=== PATIENT | female | born 1990 | race Caucasian/White ===

== ENCOUNTER → 2018-03-08 11:00 | Outpatient (CLI) | payer OTHER, SELFPAY ==
[2018-03-12 13:48] LABS: HPV Reflexed? NOT INDICATED
== END ==
PROVIDERS: Referring Provider Obstetrics & Gynecology; Visit Provider Obstetrics & Gynecology
DX: Z12.4 Encounter for screening for malignant neoplasm of cervix (principal)
CPT/HCPCS: 87624; 88175; G0145

== ENCOUNTER → 2018-07-12 16:42 | Outpatient (CLI) | payer OTHER, SELFPAY ==
[2018-07-12 15:06] VITALS: BMI 23.7
== END ==
PROVIDERS: Referring Provider Obstetrics & Gynecology; Visit Provider Obstetrics & Gynecology
DX: R10.2 Pelvic and perineal pain (principal)
CPT/HCPCS: 87086; 87088

== ENCOUNTER → 2019-06-01 | Outpatient (CLI) | payer OTHER, SELFPAY ==
[2019-06-01 08:09] VITALS: BMI 23.7
[2019-06-07 13:01] LABS: HPV Reflexed? NOT INDICATED
== END | disposition home or self-care (01) ==
LOC: LABSPEC 17:11
PROVIDERS: PCP Physician Assistant; Referring Provider Obstetrics & Gynecology; Visit Provider Obstetrics & Gynecology
DX: Z12.4 Encounter for screening for malignant neoplasm of cervix (principal)
CPT/HCPCS: 88175; G0145

== ENCOUNTER → 2020-06-03 | Outpatient (CLI) | payer OTHER, SELFPAY ==
[2020-06-03 13:08] VITALS: BMI 25.8
[2020-06-07 12:23] LABS: HPV APTIMA, High Risk Negative (Negative)
== END | disposition home or self-care (01) ==
PROVIDERS: PCP Physician Assistant; Referring Provider Obstetrics & Gynecology; Visit Provider Obstetrics & Gynecology
DX: Z12.4 Encounter for screening for malignant neoplasm of cervix (principal)
CPT/HCPCS: 87624; 88175; G0145

== ENCOUNTER → 2023-07-19 | Outpatient (CLI) | payer OTHER, SELFPAY ==
[2023-07-22 09:08] LABS: HPV APTIMA, High Risk Negative (Negative)
== END | disposition home or self-care (01) ==
PROVIDERS: PCP Physician Assistant; Referring Provider Obstetrics & Gynecology; Visit Provider Obstetrics & Gynecology
DX: Z12.4 Encounter for screening for malignant neoplasm of cervix (principal)
CPT/HCPCS: 87624; 88175; G0145

== ENCOUNTER → 2024-06-09 | Outpatient (CLI) | payer OTHER, SELFPAY ==
[2024-06-09 12:22] LABS: Absolute Lymphocyte Count 1.64 X10^3/uL (0.83-4.51); Absolute Neutrophil Count 9.3 X10^3/uL (2.0-7.7); Basophil# 0.06 X10^3/uL; Basophil% 0.5 % (0-1); Eosinophil# 0.11 X10^3/uL; Eosinophils% 0.9 % (0-5); Hemoglobin 13.2 g/dL (12.0-15.0); Lymphocyte # 1.64 X10^3/ul (0.83-4.51); Lymphocyte % 13.9 % (19-41); Mean Corpuscular Hgb 28.9 pg (27.0-32.0); Mean Corpuscular Volume 87.5 fL (81-99); Mean Platelet Vol. 10.4 fl (6.2-12.0); Monocyte# 0.65 X10^3/uL; Monocyte% 5.5 % (0-10); NRBC Flagged by Analyzer 0 % (0-5); Neutrophil # 9.29 X10^3/uL (2.7-7.7); Neutrophil % 78.8 % (47-70); Platelet Count 237 K/mm3 (150-450); RBC Distribution Width CV 12.7 % (11.6-14.6); RBC Distribution Width SD 40.6 fl (35.1-43.9); Red Blood Count 4.57 M/mm3 (4.2-5.4); White Blood Count 11.8 K/mm3 (4.4-11.0)
[2024-06-09 14:50] LABS: Hepatitis B Surface Antigen Non-Reactive (Nonreactive); Hepatitis C Antibody Non-Reactive (Nonreactive); Rubella IgG Reactive (Nonreactive); Syphilis Antibodies Non-reactive
[2024-06-12 20:07] LABS: Chlamydia By Nucleic Acid AMP Negative (Negative); Gonococcus By Nucleic Acid AMP Negative (Negative)
[2024-06-13 14:45] LABS: HIV - WCH Non-Reactive (Nonreactive)
== END | disposition home or self-care (01) ==
LOC: BWCLAB 11:15
PROVIDERS: PCP Physician Assistant; Referring Provider Obstetrics & Gynecology; Visit Provider Obstetrics & Gynecology
DX: Z34.00 Encounter for supervision of normal first pregnancy, unspecified trimester (principal)
CPT/HCPCS: 36415; 85025; 86703; 86762; 86780; 86803; 86850; 86900; 86901; 87086; 87340; 87491; 87591

== ENCOUNTER → 2024-10-16 | Outpatient (CLI) | payer OTHER, SELFPAY ==
--- OUTSIDE RECORDS SUMMARY | 2024-10-16 09:44 | XMS RPT_ITS | CCD ---
Author Organization [facility] Care Team Providers Care Business Account Manager Name Role Phone BIRCHLIZSHAR J Admitting Unavailable BIRCH, SHAR J Attending Unavailable BIRCH, SHAR J Primary Care Unavailable BIRCH, SHAR J Consulting Unavailable PROVIDER, UNKNOWN Consulting Unavailable FREIDA FAN Admitting Unavailable FREIDA FAN Attending Unavailable FREIDA FAN Primary Care Unavailable BIRCHLIZSHAR J Consulting Unavailable SHAMEKA BRONSON MD Referring Unavailab le PROVIDER, UNKNOWN Consulting Unavailable Alley Navarro Unavailable Birch PA, PA Shar Primary Care Provider Birch PA, PA Shar Referring Provider Dr. Shameka Bronson Attending Provider ZOË APONTE Attending Unavailable YOLANDE PRIMARY MD FLIP Primary Care Unavailable TRICE JONES Attending Unavailable SHAMEKA BRONSON Referring Unavailabl e Birch PA, Shar Primary Care Provider Birch PA, Shar Referring Provider Dr. Nieves Tripp DO Attending Provider Dr. Nieves Tripp DO Referring Provider Dr. Shameka Bronson MD Attending Provider Monserrat Aguirre CNM Attending Provider [phone] Gabi Clifford Attending Provider Birch PA, Shar Primary Care Unavailable Birch PA, Shar Referring Unavailable Monserrat Aguirre Attending Unavailable Birch PA, Shar Primary Care Unavailable Birch PA, Shar Referring Unavailable Shameka Bronson Attending Unavailable Birch PA, Shar Primary Care Unavailable Nieves Tripp Attending Unavailabl e Birch PA, Shar Referring Unavailable Birch PA, Shar Primary Care Unavailable Eyal LUNA, Shar Referring Unavailable Monserrat Aguirre Attending Unavailable Eyal LUNA, Shar Referring Unavailable Birch JEREMY, Shar Primary Care Unavailable Priya MANAGER CREDIT, Gabi Attending Unavailable Eyal LUNA, Shar Primary Care Unavailable Birch JEREMY, Shar Referring Unavailable Priya MANAGER CREDIT, Gabi Attending Unavailable Nieves Tripp Referring UnavailNieves Blake Attending Unavailabl e Birch JEREMY, Shar Primary Care Unavailable Birch JEREMY, Shar Primary Care Provider Shar Aleman Referring Provider Monserrat Aguirre CNM Referring Provider [phone] Allergies Allergy Classification Reported Allergen(s) Allergy Type Date of Onset Reaction(s) Facility (1 source) Amoxicillin Drug Allergy [facility] Repository (3 sources) Amoxicillin Drug Allergy 07-19-2023 Other [facility] (1 source) Amoxicillin Drug Allergy 09-25-2024 [facility] Repository Medications Current Medications Medication Drug Class(es) Dates Sig (Normalized) Sig (Original) Iron (2 sources) Start: 05-16-2024 Pnv No.[id number] No.10 (Pnv Tabs 20-1) 20 mg iron- 1 mg tablet Active {tbl} PO May 16, 2024 1:00am magnesium glycinate 100 mg oral tablet (2 sources) Start: 05-16-2024 take 1 tablet by mouth once daily Magnesium Glycinate 100 mg tablet Active 100 mg PO daily May 16, 2024 1:00am Ladson (Nk) (1 source) Start: 07-19-2023 Ladson (Nk) Active July 19, 2023 12:00am Completed/Discontinued Medications Medication Drug Class(es) Dates Sig (Normalized) Sig (Original) DULoxetine 30 mg delayed release oral capsule (3 sources) Serotonin and Norepinephrine Reuptake Inhibitor Start: 08-01-2018 End: 06-01-2019 take 1 capsule by mouth once daily Duloxetine (Cymbalta) 30 mg capsule,delayed release(DR/EC) Discontinued 30 mg PO DAILY August 01, 2018 12:00am June 01, 2019 9:04am Norgestimate-Ethi nyl Estradiol (18 sources) Progestin, Estrogen Start: 07-14-2021 End: 07-16-2022 take 1 tablet by mouth once daily Norgestimate-Ethin yl Estradiol (Sprintec (28)) 0.25-35 mg-mcg tablet Discontinued 1 {tbl} PO DAILY July 14, 2021 8:54am July 16, 2022 3:00pm Only take active pills, discard placebo Start: 07-14-2021 End: 07-16-2022 take 1 tablet by mouth once daily Norgestimate-Ethinyl Estradiol (Sprintec (28)) 0.25-35 mg-mcg tablet Discontinued 1 TABLET PO DAILY July 14, 2021 8:54am July 16, 2022 3:00pm Only take active pills, discard placebo Start: 09-24-2020 End: 07-14-2021 take 1 tablet by mouth once daily Norgestimate-Ethinyl Estradiol (Sprintec (28)) 0.25-35 mg-mcg tablet Discontinued 1 {tbl} PO DAILY September 24, 2020 8:28am July 14, 2021 8:55am Only take active pills, discard placebo Start: 09-24-2020 End: 07-14-2021 take 1 tablet by mouth once daily Norgestimate-Ethinyl Estradiol (Sprintec (28)) 0.25-35 mg-mcg tablet Discontinued 1 TABLET PO DAILY September 24, 2020 8:28am July 14, 2021 8:55am Only take active pills, discard placebo Start: 01-03-2020 End: 09-24-2020 take 1 tablet by mouth once daily Norgestimate-Ethinyl Estradiol (Sprintec (28)) 0.25-35 mg-mcg tablet Discontinued 1 {tbl} PO DAILY January 03, 2020 8:48am September 24, 2020 8:28am Only take active pills, discard placebo Start: 01-03-2020 End: 09-24-2020 take 1 tablet by mouth once daily Norgestimate-Ethinyl Estradiol (Sprintec (28)) 0.25-35 mg-mcg tablet Discontinued 1 TABLET PO DAILY January 03, 2020 8:48am September 24, 2020 8:28am Only take active pills, discard placebo Start: 03-17-2019 End: 01-03-2020 take 1 tablet by mouth once daily Norgestimate-Ethinyl Estradiol (Sprintec (28)) 0.25-35 mg-mcg tablet Discontinued 1 {tbl} PO DAILY 84 March 17, 2019 5:46pm January 03, 2020 8:48am Only take active pills, discard placebo Start: 03-17-2019 End: 01-03-2020 take 1 tablet by mouth once daily Norgestimate-Ethinyl Estradiol (Sprintec (28)) 0.25-35 mg-mcg tablet Discontinued 1 TABLET PO DAILY March 17, 2019 5:46pm January 03, 2020 8:48am Only take active pills, discard placebo Start: 02-22-2019 End: 03-17-2019 Norgestimate-Ethinyl Estradi ol (Sprintec (28)) 0.25-35 mg-mcg tablet Discontinued 1 {tbl} PO DAILY February 22, 2019 4:04pm March 17, 2019 5:47pm Start: 02-22-2019 End: 03-17-2019 take 1 tablet by mouth once daily Norgestimate-Ethinyl Estradiol (Sprintec (28)) 0.25-35 mg-mcg tablet Discontinued 1 TABLET PO DAILY February 22, 2019 4:04pm March 17, 2019 5:47pm Start: 07-12-2018 End: 02-22-2019 Norgestimate-Ethinyl Estradi ol (Sprintec (28)) 0.25-35 mg-mcg tablet Discontinued 1 {tbl} PO DAILY July 12, 2018 12:00am February 22, 2019 4:04pm Start: 07-12-2018 End: 02-22-2019 take 1 tablet by mouth once daily Norgestimate-Ethinyl Estradiol (Sprintec (28)) 0.25-35 mg-mcg tablet Discontinued 1 TABLET PO DAILY July 12, 2018 12:00am February 22, 2019 4:04pm Problems Active Problems Problem Classification Problem Date Documented Date Episodic/Chronic Abdominal pain (3 sources) Chronic pelvic pain of female; Translations: [Pelvic and perineal pain] 07-16-2022 Episodic Comment on above: s/p PFPT Anxiety disorders (4 sources) Anxiety disorder; Translations: [Anxiety disorder, unspecified] Onset: 11-28-2020 11-28-2020 Chronic Genitourinary symptoms and ill-defined conditions (1 source) Unspecified symptoms and signs involving the genitourinary system; Translations: [Unspecified symptoms and signs involving the genitourinary system] Onset: 04-29-2024 Episodic Other complications of (11 sources) RhD negative; Translations: [Other specified related conditions, unspecified trimester] 08-28-2024 Episodic Comment on above: rhogam 28 wk, pp and prn bleeding rhogam 28 wk, pp and prn bleeding, Given 10/16/24 Other complications of (1 source) Other specified related conditions, second trimester; Translations: [Other specified related conditions, second trimester] Onset: 09-25-2024 Episodic Other complications of (1 source) Other specified related conditions, unspecified trimester; Translations: [Other specified related conditions, unspecified trimester] Onset: 08-03-2024 Episodic Other female genital disorders (3 sources) Pelvic congestion syndrome; Translations: [Other specified conditions associated with female genital organs and menstrual cycle] 07-16-2022 Episodic Comment on above: resolved with physic al therapy Other and delivery including normal (20 sources) Normal ; Translations: [Encounter for supervision of normal first , unspecified trimester] Onset: 06-09-2024 08-28-2024 Episodic Comment on above: , DIEGO 01/08/25, H usspencer Messina discussed NIPT & Car rier testing- Undecided, normal anatomy Residual codes; unclassified (11 sources) History of laparoscopy; Translations: [Other specified postprocedural states] 07-19-2023 Episodic Comment on above: 2017 pelvic mass exc ision at [place], transvaginal repair, enterotomy repair Residual codes; unclassified (1 source) Unspecified blood type, Rh negative; Translations: [Unspecified blood type, Rh negative] Onset: 09-25-2024 Episodic Residual codes; unclassified (1 source) Other specified postprocedural states; Translations: [Other specified postprocedural states] Onset: 09-25-2024 Episodic Residual codes; unclassified (1 source) 25 weeks gestation of ; Translations: [25 weeks gestation of ] Onset: 09-25-2024 Episodic Residual codes; unclassified (1 source) 17 weeks gestation of ; Translations: [17 weeks gestation of ] Onset: 08-03-2024 Episodic Urinary tract infections (1 source) Acute cystitis with hematuria; Translations: [Acute cystitis with hematuria] Onset: 04-29-2024 Episodic Past or Other Problems Problem Classification Problem Date Documented Da te Episodic/Chronic Residual codes; unclassified (1 source) 13 weeks gestation of ; Translations: [13 weeks gestation of ] Onset: 07-07-2024 Episodic Results Test Name Value Interpretation Reference Range Facility Laboratory - Chemistry and C hemistry - challengeOrdered By: Monserrat Aguirre on 09-25-2024 Glucose Ql (U) Negative [facility] Laboratory - UrinalysisOrder ed By: Monserrat Aguirre on 09-25-2024 Protein Ql (U) Negative [facility] Direct Service Provider Office Visit Reporton 09-25-2024 Direct Service Provider Office Visit Report [facility]'s [address], [address] [place] [address] OFFICE VISIT Date of Service: 09/25/24 MR#: [id number] Acct: [id number] Name: LEONARD MESSINA JANENE Rep #: [id number] 7 : 1990 Provider: KATHERIN Calderon ams Age/Sex: 34/F Location: [facility] [place] Status: Signed Intake Vital Signs 08/03/24 10:50 08/28/24 09:33 09/25/24 10:17 Height 5 ft 4 in 5 ft 4 in 5 ft 4 in Weight: 160 lb 8 oz 165 lb 2 oz 168 lb BMI 27.5 28.3 28.8 BP 121/77 H 106/70 121/84 H Intake Visit Reasons: 25 wk ob Chief Complaint: 25wk OB Sales Support Consultant Required: No Is patient in pain?: No Allergies amoxicillin Allergy (Mild, Verified 09/25/24 10:14) Other Medications ???Medication ???Instructions ???Recorded ???Confirmed ???Type magnesium glycinate 100 mg (as 100 mg PO QDAY 05/16/24 09/25/24 H istory glycinate) tablet vitamins no.163-iron tab PO 05/16/24 09/25/24 History bis-gly 20 mg-folate no.10 1 mg tablet (PNV Tabs 20-1) Last Menstrual Period: 04/03/24 : No Have you fallen in the past year?: No PFSH PFSH Surgical History S/P laparoscopy Social History adopted: No household members: spouse 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 status: employed current occupation: [employer] 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 exposures/hazards: No pets and animals: Yes pets and animals: dog(s) history of recent travel: Yes (- April) out of state: Yes out of country: No sexually active: Yes Smoking Status: Never smoker alcohol intake: current alcohol intake frequency: holidays/special occasions only details: not while substance use type: does not use diet: other well-balanced diet: daily or most days caffeine: Yes Type: coffee Number of servings: 1 eating out: rarely or never during the past year weight has: remained stable what type of physical activity do you participate in: none sim/latter day: Jew seatbelt use: always do you feel safe at home: Yes additional social history: Tanvir Messina Works at [employer] History 1 Elective abortions Hx Para 0 Spontaneous abortions Hx # Term Pregnancies Ectopic pregnancies Hx # Pregnancies Multiple births # of living children HPI 25 wk ob Details: LEONARD MESSINA is a 34 year old who presents for routine OB visit. OB Visit DIEGO Calculator Estimated Delivery Date Method Current WG Current Estimate 01/08/25 LMP (Certain) 25w 0d Other Estimates 01/11/25 Ultrasound #1 24w 4d Expected Delivery Route/Plan Labor Preferences- CB/BF classes: [] labor support person: [] labor intervention preferences: [] pain management options preferred: [] cut cord/dad catch: [] : [] PP control planned: [] discussed possible routes of delivery and associated risks: [] special requests: [] Specific Issue/Plans Covid status: [] Flu vaccine: [] Tdap vaccine: [] Rhogam: [] LARC form signed: [] Problem list reviewed and updated with the most current plan of care details and appropriate orders placed. Relevant counseling for the gestational age provided. Continue routine care and follow up unless otherwise noted in visit notes/problem list details Initial Weight: Not Recorded Date -???-???-???-???-?? ?-???-???-???-???-? ??-???-???- EGA Weight BP Urine Prot -???-???-???-???-?? ?-???-???-???-???-? ??-???-???- Glucose FHR FuHt Pres Dilation -???-???-???-???-?? ?-???-???-???-???-? ??-???-???- Effaced St Visit Note 06/09/24 -???-???-???-???-?? ?-???-???-???-???-? ??-???-???- 9w 4d 152 lb 8 oz 118/79 -???-???-???-???-?? ?-???-???-???-???-? ??-???-???- 180 -???-???-???-???-?? ?-???-???-???-???-? ??-???-???- JV- CRL is c onsistent with LMP. declines NIPT. first baby, has h/o rectovaginal surgery for a large cyst. see attached op note. 07/07/24 -???-???-???-???-?? ?-???-???-???-???-? ??-???-???- 13w 4d 154 lb 8 oz 133/81 Negative -???-???-???-???-?? ?-???-???-???-???-? ??-???-???- Negative 150 -???-???-???-???-?? ?-???-???-???-???-? ??-???-???- SM- no vb cr amping 08/03/24 -???-???-???-???-?? ?-???-???-???-???-? ??-???-???- 17w 3d 160 lb 8 oz 121/77 Negative -???-???-???-???-?? ?-???-???-???-???-? ??-???-???- Negative 150 -???-???-???-???-?? ?-???-???-???-???-? ??-???-???- KW- no vb/cr amping. possible flutters. US scheduled. AFP discussed and declined 08/28/24 -???-???-???-???-?? ?-???-???-???-???-? ??-???-???- 21w 0d 165 lb 2 oz 106/70 Trace -???-???-???-???-?? ?-???-???-???-???-? ??-???-???- Negative 160 -???-???-???-???-?? ?-???-???-???-???-? ??-???-???- MH-No VB. Fe eling movement. Denies concerns 09/25/24 -???-???- (more content not included)... Normal [facility] Laboratory - Chemistry and C hemistry - challengeOrdered By: Gabi Powers on 08-28-2024 Glucose Ql (U) Negative [facility] Laboratory - UrinalysisOrder ed By: Gabi Powers on 05-05-2025 Protein Ql (U) Trace [facility] Direct Service Provider Office Visit Reporton 08-28-2024 Direct Service Provider Office Visit Report [facility]'s [facility] [address] [facility], [address] [place] [address] OFFICE VISIT Date of Service: 08/28/24 MR#: [id number] Acct: [id number] Name: LEONARD MESSINA Rep #: [id number] 5 : 1990 Provider: VINCENT hurley Age/Sex: 34/F Location: [facility] [place] Status: Signed Intake Vital Signs 07/07/24 13:52 08/03/24 10:50 08/28/24 09:33 Height 5 ft 4 in 5 ft 4 in 5 ft 4 in Weight: 165 lb 2 oz BMI 28.3 BP 106/70 Intake Visit Reasons: 21wk ob Sales Support Consultant Required: No Is patient in pain?: No Allergies amoxicillin Allergy (Mild, Verified 08/28/24 09:37) Other Medications ???Medication ???Instructions ???Recorded ???Confirmed ???Type magnesium glycinate 100 mg (as 100 mg PO QDAY 05/16/24 08/28/24 H istory glycinate) tablet vitamins no.163-iron tab PO 05/16/24 08/28/24 History bis-gly 20 mg-folate no.10 1 mg tablet (PNV Tabs 20-1) Last Menstrual Period: 04/03/24 Zika: Zika virus screening: Negative : No PFSH PFSH Surgical History S/P laparoscopy Social History adopted: No household members: spouse 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 status: employed current occupation: [employer] 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 exposures/hazards: No pets and animals: Yes pets and animals: dog(s) history of recent travel: Yes (- April) out of state: Yes out of country: No sexually active: Yes Smoking Status: Never smoker alcohol intake: current alcohol intake frequency: holidays/special occasions only details: not while substance use type: does not use diet: other well-balanced diet: daily or most days caffeine: Yes Type: coffee Number of servings: 1 eating out: rarely or never during the past year weight has: remained stable what type of physical activity do you participate in: none sim/latter day: Jew seatbelt use: always do you feel safe at home: Yes additional social history: Tanvir Messina Works at [employer] History 1 Elective abortions Hx Para 0 Spontaneous abortions Hx # Term Pregnancies Ectopic pregnancies Hx # Pregnancies Multiple births # of living children HPI 21wk ob Details: LEONARD MESSINA is a 34 year old who presents for routine OB visit. OB Visit DIEGO Calculator Estimated Delivery Date Method Current WG Current Estimate 01/08/25 LMP (Certain) 21w 0d Other Estimates 01/11/25 Ultrasound #1 20w 4d Expected Delivery Route/Plan Labor Preferences- CB/BF classes: [] labor support person: [] labor intervention preferences: [] pain management options preferred: [] cut cord/dad catch: [] : [] PP control planned: [] discussed possible routes of delivery and associated risks: [] special requests: [] Specific Issue/Plans Covid status: [] Flu vaccine: [] Tdap vaccine: [] Rhogam: [] LARC form signed: [] Problem list reviewed and updated with the most current plan of care details and appropriate orders placed. Relevant counseling for the gestational age provided. Continue routine care and follow up unless otherwise noted in visit notes/problem list details Initial Weight: Not Recorded Date -???-???-???-???-?? ?-???-???-???-???-? ??-???-???- EGA Weight BP Urine Prot -???-???-???-???-?? ?-???-???-???-???-? ??-???-???- Glucose FHR FuHt Pres Dilation -???-???-???-???-?? ?-???-???-???-???-? ??-???-???- Effaced St Visit Note 06/09/24 -???-???-???-???-?? ?-???-???-???-???-? ??-???-???- 9w 4d 152 lb 8 oz 118/79 -???-???-???-???-?? ?-???-???-???-???-? ??-???-???- 180 -???-???-???-???-?? ?-???-???-???-???-? ??-???-???- JV- CRL is c onsistent with LMP. declines NIPT. first baby, has h/o rectovaginal surgery for a large cyst. see attached op note. 07/07/24 -???-???-???-???-?? ?-???-???-???-???-? ??-???-???- 13w 4d 154 lb 8 oz 133/81 Negative -???-???-???-???-?? ?-???-???-???-???-? ??-???-???- Negative 150 -???-???-???-???-?? ?-???-???-???-???-? ??-???-???- SM- no vb cr amping 08/03/24 -???-???-???-???-?? ?-???-???-???-???-? ??-???-???- 17w 3d 160 lb 8 oz 121/77 Negative -???-???-???-???-?? ?-???-???-???-???-? ??-???-???- Negative 150 -???-???-???-???-?? ?-???-???-???-???-? ??-???-???- KW- no vb/cr amping. possible flutters. US scheduled. AFP discussed and declined 08/28/24 -???-???-???-???-?? ?-???-???-???-???-? ??-???-???- 21w 0d 165 lb 2 oz 106/70 Trace -???-???-???-???-?? ?-???-???-???-???-? ??-???-???- Negative 160 -???-???-???-???-?? ?-???-???-???-???-? ??-???-???- MH-No VB. Fe eling movement. Denies concerns ACOG First Trimester First Trimester: Discussed ROS Cons (more content not included)... Normal [facility] Laboratory - Chemistry and C hemistry - challengeOrdered By: Monserrat Aguirre on 08-03-2024 Glucose Ql (U) Negative [facility] Laboratory - UrinalysisOrder ed By: Monserrat Aguirre on 08-03-2024 Protein Ql (U) Negative [facility] Direct Service Provider Office Visit Reporton 08-03-2024 Direct Service Provider Office Visit Report [facility] [address], [address] [place] [address] OFFICE VISIT Date of Service: 08/03/24 MR#: [id number] Acct: [id number] Name: LEONARD MESSINA JANENE Rep #: [id number] 1 : 1990 Provider: KATHERIN Calderon ams Age/Sex: 34/F Location: [facility] [place] Status: Signed Intake Vital Signs 06/09/24 10:36 07/07/24 13:52 08/03/24 10:50 Height 5 ft 4 in 5 ft 4 in 5 ft 4 in Weight: 160 lb 8 oz BMI 27.5 BP 121/77 H Intake Visit Reasons: 17 wk ob Chief Complaint: 17wk OB Sales Support Consultant Required: No Is patient in pain?: No Allergies amoxicillin Allergy (Mild, Verified 08/03/24 10:49) Other Medications ???Medication ???Instructions ???Recorded ???Confirmed ???Type magnesium glycinate 100 mg (as 100 mg PO QDAY 05/16/24 08/03/24 H istory glycinate) tablet vitamins no.163-iron tab PO 05/16/24 08/03/24 History bis-gly 20 mg-folate no.10 1 mg tablet (PNV Tabs 20-1) Last Menstrual Period: 04/03/24 : No PFSH PFSH Surgical History S/P laparoscopy Social History adopted: No household members: spouse 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 status: employed current occupation: [employer] 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 exposures/hazards: No pets and animals: Yes pets and animals: dog(s) history of recent travel: Yes (- April) out of state: Yes out of country: No sexually active: Yes Smoking Status: Never smoker alcohol intake: current alcohol intake frequency: holidays/special occasions only details: not while substance use type: does not use diet: other well-balanced diet: daily or most days caffeine: Yes Type: coffee Number of servings: 1 eating out: rarely or never during the past year weight has: remained stable what type of physical activity do you participate in: none sim/latter day: Jew seatbelt use: always do you feel safe at home: Yes additional social history: Tanvir Messina Works at [employer] History 1 Elective abortions Hx Para 0 Spontaneous abortions Hx # Term Pregnancies Ectopic pregnancies Hx # Pregnancies Multiple births # of living children HPI 17 wk ob Details: LEONARD MESSINA is a 34 year old who presents for routine OB visit. OB Visit DIEGO Calculator Estimated Delivery Date Method Current WG Current Estimate 01/08/25 LMP (Certain) 17w 3d Other Estimates 01/11/25 Ultrasound #1 17w 0d Expected Delivery Route/Plan Labor Preferences- CB/BF classes: [] labor support person: [] labor intervention preferences: [] pain management options preferred: [] cut cord/dad catch: [] : [] PP control planned: [] discussed possible routes of delivery and associated risks: [] special requests: [] Specific Issue/Plans Covid status: [] Flu vaccine: [] Tdap vaccine: [] Rhogam: [] LARC form signed: [] Problem list reviewed and updated with the most current plan of care details and appropriate orders placed. Relevant counseling for the gestational age provided. Continue routine care and follow up unless otherwise noted in visit notes/problem list details Initial Weight: Not Recorded Date -???-???-???-???-?? ?-???-???-???-???-? ??-???-???- EGA Weight BP Urine Prot -???-???-???-???-?? ?-???-???-???-???-? ??-???-???- Glucose FHR FuHt Pres Dilation -???-???-???-???-?? ?-???-???-???-???-? ??-???-???- Effaced St Visit Note 06/09/24 -???-???-???-???-?? ?-???-???-???-???-? ??-???-???- 9w 4d 152 lb 8 oz 118/79 -???-???-???-???-?? ?-???-???-???-???-? ??-???-???- 180 -???-???-???-???-?? ?-???-???-???-???-? ??-???-???- JV- CRL is c onsistent with LMP. declines NIPT. first baby, has h/o rectovaginal surgery for a large cyst. see attached op note. 07/07/24 -???-???-???-???-?? ?-???-???-???-???-? ??-???-???- 13w 4d 154 lb 8 oz 133/81 Negative -???-???-???-???-?? ?-???-???-???-???-? ??-???-???- Negative 150 -???-???-???-???-?? ?-???-???-???-???-? ??-???-???- SM- no vb cr amping 08/03/24 -???-???-???-???-?? ?-???-???-???-???-? ??-???-???- 17w 3d 160 lb 8 oz 121/77 Negative -???-???-???-???-?? ?-???-???-???-???-? ??-???-???- Negative 150 -???-???-???-???-?? ?-???-???-???-???-? ??-???-???- KW- no vb/cr amping. possible flutters. US scheduled. AFP discussed and declined ACOG First Trimester First Trimester: Discussed ROS Const Reports system reviewed and no additional complaints, except as documented Eyes Reports system reviewed and no additional complaints, except as documented ENT Reports system reviewed and no additional complaints, except as documented Card Reports system reviewed and no ad (more content not included)... Normal [facility] Laboratory - Chemistry and C hemistry - challengeOrdered By: Shameka Bronson on 07-07-2024 Glucose Ql (U) Negative [facility] Laboratory - UrinalysisOrder ed By: Shameka Bronson on 07-07-2024 Protein Ql (U) Negative [facility] Direct Service Provider Office Visit Reporton 07-07-2024 Direct Service Provider Office Visit Report [facility]'[address], [address] [place] [address] OFFICE VISIT Date of Service: 07/07/24 MR#: [id number] Acct: [id number] Name: LEONARD MESSINA JANENE Rep #: [id number] : 1990 Provider: Dr. Shameka jefferson MD Age/Sex: 34/F Location: [facility] [place] Status: Signed Intake Vital Signs 07/19/23 08:28 06/09/24 10:36 07/07/24 13:52 Height 5 ft 4 in 5 ft 4 in 5 ft 4 in Weight: 154 lb 8 oz BMI 26.5 BP 133/81 H Intake Visit Reasons: 13wk OB Sales Support Consultant Required: No Is patient in pain?: No Allergies amoxicillin Allergy (Mild, Verified 07/07/24 14:11) Other Medications ???Medication ???Instructions ???Recorded ???Confirmed ???Type magnesium glycinate 100 mg (as 100 mg PO QDAY 05/16/24 07/07/24 H istory glycinate) tablet vitamins no.163-iron tab PO 05/16/24 07/07/24 History bis-gly 20 mg-folate no.10 1 mg tablet (PNV Tabs 20-1) Last Menstrual Period: 04/03/24 Zika: Zika virus screening: Negative : No PFSH PFSH Surgical History S/P laparoscopy Social History adopted: No household members: spouse 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 status: employed current occupation: [employer] 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 exposures/hazards: No pets and animals: Yes pets and animals: dog(s) history of recent travel: Yes (- April) out of state: Yes out of country: No sexually active: Yes Smoking Status: Never smoker alcohol intake: current alcohol intake frequency: holidays/special occasions only details: not while substance use type: does not use diet: other well-balanced diet: daily or most days caffeine: Yes Type: coffee Number of servings: 1 eating out: rarely or never during the past year weight has: remained stable what type of physical activity do you participate in: none sim/latter day: Jew seatbelt use: always do you feel safe at home: Yes additional social history: Tanvir Messina Works at [employer] History 1 Elective abortions Hx Para 0 Spontaneous abortions Hx # Term Pregnancies Ectopic pregnancies Hx # Pregnancies Multiple births # of living children HPI 13wk OB Details: LEONARD MESSINA is a 34 year old who presents for routine OB visit. OB Visit DIEGO Calculator Estimated Delivery Date Method Current WG Current Estimate 01/08/25 LMP (Certain) 13w 4d Other Estimates 01/11/25 Ultrasound #1 13w 1d Expected Delivery Route/Plan Labor Preferences- CB/BF classes: [] labor support person: [] labor intervention preferences: [] pain management options preferred: [] cut cord/dad catch: [] : [] PP control planned: [] discussed possible routes of delivery and associated risks: [] special requests: [] Specific Issue/Plans Covid status: [] Flu vaccine: [] Tdap vaccine: [] Rhogam: [] LARC form signed: [] Problem list reviewed and updated with the most current plan of care details and appropriate orders placed. Relevant counseling for the gestational age provided. Continue routine care and follow up unless otherwise noted in visit notes/problem list details Initial Weight: Not Recorded Date -???-???-???-???-?? ?-???-???-???-???-? ??-???-???- EGA Weight BP Urine Prot -???-???-???-???-?? ?-???-???-???-???-? ??-???-???- Glucose FHR FuHt Pres Dilation -???-???-???-???-?? ?-???-???-???-???-? ??-???-???- Effaced St Visit Note 06/09/24 -???-???-???-???-?? ?-???-???-???-???-? ??-???-???- 9w 4d 152 lb 8 oz 118/79 -???-???-???-???-?? ?-???-???-???-???-? ??-???-???- 180 -???-???-???-???-?? ?-???-???-???-???-? ??-???-???- JV- CRL is c onsistent with LMP. declines NIPT. first baby, has h/o rectovaginal surgery for a large cyst. see attached op note. 07/07/24 -???-???-???-???-?? ?-???-???-???-???-? ??-???-???- 13w 4d 154 lb 8 oz 133/81 Negative -???-???-???-???-?? ?-???-???-???-???-? ??-???-???- Negative 150 -???-???-???-???-?? ?-???-???-???-???-? ??-???-???- SM- no vb cr amping ACOG First Trimester First Trimester: Discussed Results POC Urinalysis 2 Dip (Clinic) Office Urine Glucose Negative Last Edit by Gabi Simmons on 07/07/24 14:13 Office Urine Protein Negative Last Edit by Gabi Simmons on 07/07/24 14:13 Coding Level of Care Code OB Routine Diagnoses Rh negative status during O26.899; Z67.91 S/P laparoscopy Z98.890 Supervision of normal first Z34.00 13 weeks gestation of Z3A.13 Weeks of gestation: 13 weeks Assessment and Plan Assessment and Plan (1) Rh negative status during : Status: Acute Comment: (more content not included)... Normal [facility] HIV - WCHon 06-13-2024 HIV Non-Reactive Normal Nonreactive [facility] Comment on above: Performed By: #### L 6490.6005 ####[facility] [address] [place], [address] Chlamydia/GC SHER aptimaon CHLAMY,NUC ACID Negative Normal Negative [facility] Comment on above: Performed By: #### M 100.2200, L7000.1800 #### [facility] [address] [place], [address] GC BY NUC ACID Negative Normal Negative [facility] Comment on above: Result Comment: Perf ormed at: =G - [facility] [address], [place] [id number] Barrel Cutter: Kathleen Mathews MD, Phone: [phone] Performed By: #### M 100.2200, L7000.1800 #### [facility] [address] [place], [address] Urine Cultureon 06-10-2024 URC Culture exhibits no growth. Normal [facility] Comment on above: Performed By: #### M 100.2200, L7000.1800 #### [facility] [address] [place], [address] Absolute lymphocyte countOrd ered By: Nieves Dennis on 06-09-2024 Lymphocytes Auto (Unsp spec) [#/Vol] 1.64 10*3/uL 0.83-4.51 [facility] Absolute neutrophil countOrd ered By: Nieves Dennis on 06-09-2024 Neutrophils (Bld) [#/Vol] 9.3 10*3/uL High 2.0-7.7 [facility] Automated lymphocyte count a s percentage of total leukocytesOrdered By: Nieves Dennis on 06-09-2024 Lymphocytes/100 WBC Auto (Unsp spec) 13.9 % Low 19-41 [facility] Basophil percentageOrdered B y: Nieves Dennis on 06-09-2024 Basophils/100 WBC (Bld) 0.5 % 0-1 [facility] CBC W/Diff, Automatedon 05-27 Absolute Lymph 1.64 X10 3/uL Normal 0.83-4.51 [facility] Comment on above: Performed By: #### L 3890.6300, BTS, L3890.6100, L509.8000, L100.0100, L509.4005 #### [facility] [address] [place], [address] Absolute Neut 9.3 X10 3/uL High 2.0-7.7 [facility] Comment on above: Performed By: #### L 3890.6300, BTS, L3890.6100, L509.8000, L100.0100, L509.4005 #### [facility] [address] [place], [address] Basophils/100 WBC (Bld) 0.5 % Normal 0-1 [facility] Comment on above: Performed By: #### L 3890.6300, BTS, L3890.6100, L509.8000, L100.0100, L509.4005 #### [facility] [address] [place], [address] Eosinophils/100 WBC (Bld) 0.9 % Normal 0-5 [facility] Comment on above: Performed By: #### L 3890.6300, BTS, L3890.6100, L509.8000, L100.0100, L509.4005 #### [facility] [address] [place], [address] Erythrocyte distribution width (RBC) [Ratio] 12.7 % Normal 11.6-14.6 [facility] Comment on above: Performed By: #### L 3890.6300, BTS, L3890.6100, L509.8000, L100.0100, L509.4005 #### [facility] [address] [place], [address] Hematocrit (Bld) [Volume fraction] 40.0 % Normal 37-47 [facility] Comment on above: Performed By: #### L 3890.6300, BTS, L3890.6100, L509.8000, L100.0100, L509.4005 #### [facility] [address] [place], [address] Hemoglobin (Bld) [Mass/Vol] 13.2 g/dL Normal 12.0-15.0 [facility] Comment on above: Performed By: #### L 3890.6300, BTS, L3890.6100, L509.8000, L100.0100, L509.4005 #### [facility] [address] [place], [address] IG% 0.400 Normal 0.0-0.9 [facility] Comment on above: Result Comment: IG% - Immature Granulocytes (promyelocytes, myelocytes and metamyelocytes) > 1% indicates that a LEFT SHIFT is Present. Performed By: #### L 3890.6300, BTS, L3890.6100, L509.8000, L100.0100, L509.4005 #### [facility] [address] [place], [address] Lymphocytes/100 WBC (Bld) 13.9 % Low 19-41 [facility] Comment on above: Performed By: #### L 3890.6300, BTS, L3890.6100, L509.8000, L100.0100, L509.4005 #### [facility] [address] [place], [address] MCH (RBC) [Entitic mass] 28.9 pg Normal 27.0-32.0 [facility] Comment on above: Performed By: #### L 3890.6300, BTS, L3890.6100, L509.8000, L100.0100, L509.4005 #### [facility] [address] [place], [address] MCHC (RBC) [Mass/Vol] 33.0 g/dL Normal 32-36 [facility] Comment on above: Performed By: #### L 3890.6300, BTS, L3890.6100, L509.8000, L100.0100, L509.4005 #### [facility] [address] [place], [address] MCV (RBC) [Entitic vol] 87.5 fL Normal 81-99 [facility] Comment on above: Performed By: #### L 3890.6300, BTS, L3890.6100, L509.8000, L100.0100, L509.4005 #### [facility] [address] [place], [address] Monocytes/100 WBC (Bld) 5.5 % Normal 0-10 [facility] Comment on above: Performed By: #### L 3890.6300, BTS, L3890.6100, L509.8000, L100.0100, L509.4005 #### [facility] [address] [place], [address] Neutrophils/100 WBC (Bld) 78.8 % High 47-70 [facility] Comment on above: Performed By: #### L 3890.6300, BTS, L3890.6100, L509.8000, L100.0100, L509.4005 #### [facility] [address] [place], [address] Nucleated RBC (Bld) [#/Vol] 0 10*3/uL Normal 0-5 [facility] Comment on above: Performed By: #### L 3890.6300, BTS, L3890.6100, L509.8000, L100.0100, L509.4005 #### [facility] [address] [place], [address] Platelet mean volume (Bld) [Entitic vol] 10.4 fL Normal 6.2-12.0 [facility] Comment on above: Performed By: #### L 3890.6300, BTS, L3890.6100, L509.8000, L100.0100, L509.4005 #### [facility] [address] [place], [address] Platelets (Bld) [#/Vol] 237 10*3/uL Normal 150-450 [facility] Comment on above: Performed By: #### L 3890.6300, BTS, L3890.6100, L509.8000, L100.0100, L509.4005 #### [facility] [address] [place], [address] RBC (Bld) [#/Vol] 4.57 10*6/uL Normal 4.2-5.4 [facility] Comment on above: Performed By: #### L 3890.6300, BTS, L3890.6100, L509.8000, L100.0100, L509.4005 #### [facility] [address] [place], [address] RDW SD 40.6 fl Normal 35.1-43.9 [facility] Comment on above: Performed By: #### L 3890.6300, BTS, L3890.6100, L509.8000, L100.0100, L509.4005 #### [facility] [address] [place], [address] WBC (Bld) [#/Vol] 11.8 10*3/uL High 4.4-11.0 [facility] Comment on above: Performed By: #### L 3890.6300, BTS, L3890.6100, L509.8000, L100.0100, L509.4005 #### [facility] [address] [place], [address] Chlamydia trachomatis rRNA d etection by probe and target amplification methodOrdered By: Nieves Dennis on 06-09-2024 C. trachomatis rRNA SHER+probe Ql (Unsp spec) Negative Negative [facility] Eosinophil percentageOrdered By: Nieves Jeannie on 06-09-2024 Eosinophils/100 WBC (Bld) 0.9 % 0-5 [facility] Erythrocyte distribution wid th ratioOrdered By: Nieves Jeannie on 06-09-2024 Erythrocyte distribution width (RBC) [Ratio] 12.7 % 11.6-14.6 [facility] Erythrocyte distribution wid th standard deviationOrdered By: Nieves Jeannie on 06-09-2024 Erythrocyte distribution width (RBC) [Ratio] 40.6 fl 35.1-43.9 [facility] HIV 1 and HIV-2 antibody ass ay with HIV-1 p24 antigen detectionOrdered By: Nieves Dennis on 06-09-2024 HIV 1+2 Ab+HIV1 p24 Ag IA Ql Non-Reactive Nonreactive [facility] Hematocrit Auto (Bld) [Volum e fraction]Ordered By: Nieves Dennis on 06-09-2024 Hematocrit (Bld) [Volume fraction] 40.0 % 37-47 [facility] Hemoglobin measurementOrdere d By: Nieves Dennis on 06-09-2024 Hemoglobin (Bld) [Mass/Vol] 13.2 g/dL 12.0-15.0 [facility] Hepatitis B Surface Antigeno n 06-09-2024 HEP B Surf Ag Non-Reactive Normal Nonreactive [facility] Comment on above: Order Comment: Reaso n for Exam: Performed By: #### L 3890.6300, BTS, L3890.6100, L509.8000, L100.0100, L509.4005 #### [facility] [place], [address] Hepatitis C Antibodyon 06-09 Hepatitis C AB Non-Reactive Normal Nonreactive [facility] Comment on above: Order Comment: Reaso n for Exam: Result Comment: Non Reactive: < 0.8 Equivocal: >/= 0.8 to < 1.0 Reactive: >/= 1.0 The CDC requires that a reactive/equivocal HCV antibody result be sent out for confirmation. HCV Quant by PCR testing. Performed By: #### L 3890.6300, BTS, L3890.6100, L509.8000, L100.0100, L509.4005 ####[facility] [address] [place], [address] Immature granulocytes/100 WB C Auto (Bld)Ordered By: Nieves Dennis on 06-09-2024 Immature granulocytes/100 WBC (Bld) 0.400 % 0.0-0.9 [facility] Comment on above: IG% - Immature Granu locytes (promyelocytes, myelocytes and metamyelocytes) > 1% indicates that a LEFT SHIFT is Present. L509.8000on 06-09-2024 Syphilis Abs Non-Reactive Normal [facility] Comment on above: Order Comment: Reaso n for Exam: Performed By: #### L 3890.6300, BTS, L3890.6100, L509.8000, L100.0100, L509.4005 #### [facility] [address] [place], [address] MCV (mean corpuscular volume ) determinationOrdered By: Nieves Dennis on 06-09-2024 MCV (RBC) [Entitic vol] 87.5 fL 81-99 [facility] Mean corpuscular hemoglobin (MCH) determinationOrdered By: Nieves Dennis on 06-09-2024 MCH (RBC) [Entitic mass] 28.9 pg 27.0-32.0 [facility] Mean corpuscular hemoglobin concentration (MCHC) determinationOrdered By: Nieves Dennis on 06-09-2024 MCHC (RBC) [Mass/Vol] 33.0 g/dL 32-36 [facility] Mean platelet volume determi nationOrdered By: Nieves Dennis on 06-09-2024 Platelet mean volume (Bld) [Entitic vol] 10.4 fL 6.2-12.0 [facility] Monocyte percentageOrdered B y: Nieves Dennis on 06-09-2024 Monocytes/100 WBC (Bld) 5.5 % 0-10 [facility] Neisseria gonorrhoeae nuclei c acid detection by amplified probe techniqueOrdered By: Nieves Dennis on 06-09-2024 N. gonorrhoeae DNA SHER+probe Ql (Unsp spec) Negative Negative [facility] Comment on above: Performed at: =[address] [id number] Director: Kathleen Mathews MD, Phone: [phone] Neutrophil percentageOrdered By: Nieves Dennis on 06-09-2024 Neutrophils/100 WBC (Bld) 78.8 % High 47-70 [facility] Nucleated red blood cell per centageOrdered By: Nieves Dennis on 06-09-2024 Nucleated RBC/100 WBC (Bld) [Ratio] 0 % 0-5 [facility] Direct Service Provider Office Visit Reporton 06-09-2024 Direct Service Provider Office Visit Report [facility] [address], [address] [place] [address] OFFICE VISIT Date of Service: 06/09/24 MR#: [id number] Acct: [id number] Name: LEONARD MESSINA JANENE Rep #: [id number] : 1990 Provider: Dr. Nieves Quintana DO Age/Sex: 34/F Location: [facility] [place] Status: Signed Intake Vital Signs 07/19/23 08:28 06/09/24 10:34 06/09/24 10:36 Height 5 ft 4 in 5 ft 4 in 5 ft 4 in Weight: 152 lb 8 oz BMI 26.2 BP 118/79 Intake Visit Reasons: New OB, LMP 04/03/24, DIEGO 01/08/25 Sales Support Consultant Required: No Is patient in pain?: No Allergies amoxicillin Allergy (Mild, Verified 06/09/24 10:34) Other Medications ???Medication ???Instructions ???Recorded ???Confirmed ???Type magnesium glycinate 100 mg (as 100 mg PO QDAY 05/16/24 06/09/24 H istory glycinate) tablet vitamins no.163-iron tab PO 05/16/24 06/09/24 History bis-gly 20 mg-folate no.10 1 mg tablet (PNV Tabs 20-1) Last Menstrual Period: 04/03/24 Zika: Zika virus screening: Negative : No PFSH PFSH Surgical History (Updated 06/09/24 @ 11:[address] Nieves Tripp DO) S/P laparoscopy Social History adopted: No household members: spouse service: No 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 status: employed current occupation: [employer] 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 exposures/hazards: No pets and animals: Yes pets and animals: dog(s) history of recent travel: Yes (- April) out of state: Yes out of country: No sexually active: Yes Smoking Status: Never smoker alcohol intake: current alcohol intake frequency: holidays/special occasions only details: not while substance use type: does not use diet: other well-balanced diet: daily or most days caffeine: Yes Type: coffee Number of servings: 1 eating out: rarely or never during the past year weight has: remained stable what type of physical activity do you participate in: none sim/latter day: Jew seatbelt use: always do you feel safe at home: Yes additional social history: Tanvir Messina Works at [employer] History 1 Elective abortions Hx Para 0 Spontaneous abortions Hx # Term Pregnancies Ectopic pregnancies Hx # Pregnancies Multiple births # of living children HPI New OB, LMP 04/03/24, DIEGO 01/08/25 Details: LEONARD MESSINA is a 34 year old who presents for New OB visit. OB Visit DIEGO Calculator Estimated Delivery Date Method Current WG Current Estimate 01/08/25 LMP (Certain) 9w 4d Other Estimates 01/11/25 Ultrasound #1 9w 1d Comments: HIV: Urine Culture: Sequential Screen: NIPT Screen: Estimated Due Date: 01/08/25 Expected Delivery Route/Plan Labor Preferences- CB/BF classes: [] labor support person: [] labor intervention preferences: [] pain management options preferred: [] cut cord/dad catch: [] : [] PP control planned: [] discussed possible routes of delivery and associated risks: [] special requests: [] Specific Issue/Plans Covid status: [] Flu vaccine: [] Tdap vaccine: [] Rhogam: [] LARC form signed: [] Problem list reviewed and updated with the most current plan of care details and appropriate orders placed. Relevant counseling for the gestational age provided. Continue routine care and follow up unless otherwise noted in visit notes/problem list details Initial Weight: Not Recorded Date -???-???-???-???-?? ?-???-???-???-???-? ??-???-???- EGA Weight BP Urine Prot -???-???-???-???-?? ?-???-???-???-???-? ??-???-???- Glucose FHR FuHt Pres Dilation -???-???-???-???-?? ?-???-???-???-???-? ??-???-???- Effaced St Visit Note 06/09/24 -???-???-???-???-?? ?-???-???-???-???-? ??-???-???- 9w 4d 152 lb 8 oz 118/79 -???-???-???-???-?? ?-???-???-???-???-? ??-???-???- 180 -???-???-???-???-?? ?-???-???-???-???-? ??-???-???- JV- CRL is c onsistent with LMP. declines NIPT. first baby, has h/o rectovaginal surgery for a large cyst. see attached op note. Menstrual History Last Menstrual Period: 04/03/24 Reported LMP: definite Normal amount/duration: Yes (but slightly shorter) Frequency in days: 28 On hormonal BC at conception: No hCG+: 05/09/24 Antepartum Record Genetic Screening: Congenital Heart Defect: Other, Neural Tube Defect: Other, Hemoglobinopathy Or Carrier: Other, Cystic Fibrosis: Other, Chromosome Abnormality: Other, Onel-Sachs: Other, Hemophilia: Other, Intellectual Disability/Autism: Other, Recurrent Loss/Stillbirth: Other, Other Structural Defect: Other, Other Genetic Disease: Other and Maternal Metabolic Disorder: Other Infection History: Live with someone with TB or Exposed to TB: No, Patient or Partn (more content not included)... Normal [facility] Platelet countOrdered By: Abdirashid Dennis on 06-09-2024 Platelets (Bld) [#/Vol] 237 10*3/uL 150-450 [facility] RBC Auto (Bld) [#/Vol]Ordere d By: Nieves Dennis on 06-09-2024 RBC (Bld) [#/Vol] 4.57 10*6/uL 4.2-5.4 [facility] Rubella IgGon 06-09-2024 Rubella IgG Reactive Normal Nonreactive [facility] Comment on above: Order Comment: Reaso n for Exam: Result Comment: Anti body Results Interpretation of Immune Status Non Reactive Presumed Non-Immune Equivocal Equivocal Reactive Presumed Immune Performed By: #### L 3890.6300, BTS, L3890.6100, L509.8000, L100.0100, L509.4005 #### [facility] [address] [place], [place], [id number] Serum Treponema species anti body detectionOrdered By: Nieves Dennis on 06-09-2024 Treponema sp Ab Ql (S) Non-Reactive [facility] Type AND Screenon 06-09-2024 Ab SCREEN GEL Negative Normal [facility] Comment on above: Order Comment: PN Performed By: #### L 3890.6300, BTS, L3890.6100, L509.8000, L100.0100, L509.4005 #### [facility] [address] [place], [place], [id number] Urine cultureOrdered By: Poonam Dennis on 06-09-2024 Bacteria identified Cx Nom (U) Culture exhibits no growth. [facility] White blood cell (WBC) count Ordered By: Nieves Dennis on 06-09-2024 WBC (Bld) [#/Vol] 11.8 10*3/uL High 4.4-11.0 [facility] URINE CULTUREon 04-29-2024 Bacteria identified Cx Nom (U) URINE CULTURE, ROUTINE Mixed skin julia Normal [facility] Comment on above: Order Comment: >100, 000/mL Performed By: #### [id number] #### [facility] [address] Cervical or vaginal specimen microscopic examination by liquid based cytology (reportOrdered By: Shameka Bronson on 07-19-2023 Cytology report Cyto stain.thin prep Doc (Cvx/Vag) Comment . [facility] Comment on above: Criteria not met, HP V Genotype not performed.Performed at: [address] [id number] Director: Kathleen Mathews MD, Phone: [phone] at: =[facility] [id number] Director: Kathleen Mathews MD, Phone: [phone] Cervical or vagninal specime n microscopic examination by cytology stain (reported asOrdered By: Shameka Bronson on 07-19-2023 Cytology report Cyto stain Doc (Cvx/Vag) Comment . [facility] Comment on above: The Pap smear is a s creening test designed to aid in thedetection of premalignant and malignant conditions of theuterine cervix. It is not a diagnostic procedure andshould not be used as the sole means of detecting cervicalcancer. Both false-positive and false-negative reports dooccur. Detection in cervical specim en of any of human papilloma virus (HPV) 16, 18, 31, 33,Ordered By: Shameka Bronson on 07-19-2023 HPV 16+18+31+33+35+39+45+51+ 52+56+58+59+66+68 DNA Probe+sig amp Ql (Cvx) Negative Negative [facility] Comment on above: This nucleic acid am plification test detects fourteen high-risk HPV types (16,18,31,33,35,39,45,51,52,56,58,59,66,68)without differentiation. Laboratory - CytologyOrdered By: Shameka Bronson on 07-19-2023 Machine Feeder Floorperson Cyto stain Nom (Cvx/Vag) [ID] Comment . [facility] Comment on above: Shayy Turner, Cyto technologist (ASCP) Laboratory - Miscellaneous t estsOrdered By: Shameka Bronson on 07-19-2023 Service comment (Unsp spec) [Interp] . . [facility] Thin prep Papanicolaou smear with manual screeningOrdered By: Shameka Bronson on 07-19-2023 Thin prep Papanicolaou smear with manual screening Comment . [facility] Comment on above: NEGATIVE FOR INTRAEP ITHELIAL LESION OR MALIGNANCY. This liquid based Th inPrep(R) pap test was screened withthe use of an image guided system. Clinical Summary-RTFon 09-06 Clinical Summary-RTF Clinical Summary Patient Details for LEONARD MIRANDA Preferred Name Female Sex [id number] FOR[facility]LY [facility] [address], [place], [address] Address [place] Language 1990 Born White Race Non- or Ethnicity Today's Appointment Trent Tavera MD Provider 07 Sep 2019 10:20 AM Appointment [facility] Consult Letteron 09-07-2019 Consult Letter Consult Letter Greeting Dear , I had the pleasure of evaluating your patient LEONARD MIRANDA. My full evaluation follows: *Chief Complaint The patient presents to the office today for an initial evaluation. The patient presents for evaluation of. pelvic congestion syndrome. History of Present Illness Ms. 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 she had a constellation of symptoms surrounding this period before and after her surgery and states that things never got better. She still has some of the symptoms she had prior to surgery - she describes some right sided stomach pain along my right ovarian vein and down my ovary and this is also noticeable along the right flank - she has some left sided discomfort and also attributes some of this pain to her poor venous flow and that she gets a numb like feeling along her left gluteal region. her surgery was 09/2016 and included a 1 week hospital stay after an 8 hour operation. Lap assisted pelvic mass excision. included a vaginal and anal repair secondary to process of removing the cyst. with the tumor, she had some rectal heavyness and perineum area - after surgery she had some relief but this was mostly related to bowel function. she describes that she had very loud bowel sounds prior to the tumor excision and this has largely resolved. no pysical therapy nor pelvic floor rehab - did not pursue this back over a year ago although it was recommended. pain comes with her ovulation and describes it as cyclical has been on oral contraceptives and has been on this for 1 year - with this she has reduced the pain to what she describes as a very functional level and nearly >50% improvement. 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 No history of clotting or thrombosis. Pt reports pain in vaginal area. No vericosites noted in vaginal area. No varicosities noted. no intervention or venograms done. All other systems have been reviewed and are negative for complaint on exam no distress breathing comfortably palpable radial pulses intact not tachycardic abd soft, nt, nd, no fullness, no abdominal or visible varicosities palpable femoral pulses palpable dp/pt pulses b/l no leg edema nor varicosities vaginal and perineal exam reveals no visible bulging veins nor fullness. gross neuro intact x 4 without focal deficits There are no spiritual/cultural practices/values/ne eds that are important to know Initial Fall Risk Screening: LEONARD has not fallen in the last 6 months. Review of Systems Constitutional: no fever, no chills, no recent weight gain and no recent weight loss. Psychiatric: no depression, no anxiety and no emotional problems. Neurological: numbness and ocassional L knee numbness, but no headache, no seizures, no syncope and no limb weakness. Eyes: no eye problems. ENT: no hearing loss, no throat symptoms, no nosebleeds and no hoarseness. Cardiovascular: no chest pain and no palpitations. Respiratory: no shortness of breath, no wheezing, no cough and no hemoptysis. Gastrointestinal: abdominal pain, nausea and R flank pain, radiates to back, comes on during period, but no constipation, no heartburn, no diarrhea, no vomiting and no blood in stools. Genitourinary: no dysuria, no incontinence, no hematuria, no urinary hesitancy, no dysmenorrhea and no anuria. Musculoskeletal: no arthralgias, no myalgias, no joint swelling, no joint stiffness, no limb pain and no limb swelling. Endocrine: no endocrine problems, no diabetes mellitus and no thyroid disorder. Hematologic/Lymphat ic: a tendency for easy bruising, but no lymphadenopathy, no anemia, no tendency for easy bleeding and no pulmonary embolism. no DVT Integumentary: no rashes, no skin lesions, no itching, no skin wound and no dry skin. Vascular: no claudication, no rest pain, no ulceration and no varicose veins. *Active Problems 1. Pelvic congestion (625.5) (N94.89) *Allergies 1. amoxicillin *Current Meds 1. Sprintec 28 TABS; Therapy: (Recorded:07Sep2019 ) to Recorded *Vitals Vital Signs Recorded: 07Sep2019 09:58AM Heart Rate: 112 Systolic: 129, LUE, Sitting Diastolic: 83, LUE, Sitting Blood Pressure Cuff Size: Adult Height: 5 ft 4 in Weight: 146 lb BMI Calculated: 25.06 BSA Calculated: 1.71 Fall Screening: a) No falls within the last year Normal [facility] VASC LAB Abdominal Aorta/Landy ac/IVC Ultraon 09-07-2019 VASC LAB Abdominal Aorta/Iliac/IVC Ultra [place] [address] and Vascular Lab Report Abdominal Aorta Iliac Ultrasound/IVC Ultrasound Patient Name: [facility] Physician: [id number] Juan J MIRANDA MD Study Date: 09/07/2019 Referring [id number] Trent Tavera MD Physician: MRN/PID: [id number] PCP: Accession/Order#: [id number] CC Report to: Date of : 1990 Technologist: Shanita Syed RVT Gender: F Technologist 2: Admission Status: Outpatient Location Performed: [facility] Diagnosis/ICD: R09.89-Other specified symptoms and signs involving the circulatory and respiratory systems Procedure/CPT: 32579 Duplex Aorta/IVC/Iliac/Byp ass Graft-[id number] CONCLUSIONS: Aorta/Common Iliac Arteries/IVC: The inferior vena cava appears patent with no evidence of thrombosis. The right common iliac vein and external iliac vein appear patent with phasic flow. The left common iliac vein and external iliac vein appear patent with phasic flow. The proximal left common iliac vein appears to be slightly compressed, however the flow remains spontaneous and phasic. Additional Findings: Imaging & Doppler Findings: [id number] Rincon MD Final Normal [facility] CT ABDOMEN/PELVIS Won 2018 CT ABDOMEN/PELVIS W [place] [address] Patient: LEONARD MIRANDA Phone#: : 1990 Age: 28 Gender: F Pt. Type: Out Account: [id number] Location: Ordering: FREIDA FAN Exam Date: 07/14/2018/11:29 Family Phys: SHAR BIRCH Charge Code: [id number] Physician: SHAMEKA Cuetor Order #: [id number] DLP Dose#: PROCEDURE: CT ABDOMEN/PELVIS WITH CONTRAST COMPARISON: [facility], CT, ABDOMEN/PELVIS W CON, 09/07/2016, 8:31. [facility], CT, ABDOMEN/PELVIS W CON, 11/24/2016, 9:29. [facility], CT, ABDOMEN/PELVIS W CON, 10/01/2017, 13:23. INDICATIONS: Vaginal pain TECHNIQUE: After obtaining the patient's consent, CT images were created with non-ionic intravenous contrast and oral contrast material. All CT scans at this facility use dose modulation, iterative reconstruction, and/or weight based dosing when appropriate to reduce radiation dose to as low as reasonably achievable. IV CONTRAST: Omnipaque 350,80ml TOTAL DOSE: 11.00 CTDIvol(mGy) FINDINGS: LIVER: Normal. No enlargement, atrophy, abnormal density, or significant focal lesion. BILIARY: Normal. No visible dilatation or calcification. PANCREAS: Normal. No lesion, fluid collection, ductal dilatation, or atrophy. SPLEEN: Normal. No enlargement or focal lesion. KIDNEYS: Normal. No mass, obstruction, or calcification. ADRENALS: Normal. No mass or enlargement. AORTA/VASCULAR: Normal. No aneurysm or dissection. RETROPERITONEUM: Normal. No mass or adenopathy. BOWEL/MESENTERY: Normal. No visible mass, obstruction, or bowel wall thickening. ABDOMINAL WALL: Midline incisional scar is present. T2 disc there is a broad based abdominal wall muscular defect unchanged from prior exams. URINARY BLADDER: Normal. No visible focal wall thickening, lesion, or calculus. Continued Report - Page 2 of 2 Patient: LEONARD MIRANDA Phone#: : 1990 Age: 28 Gender: F Pt. Type: Out Account: [id number] Location: Ordering: FREIDA FAN Exam Date: 07/14/2018/11:29 Family Phys: SHAR BIRCH Charge Code: [id number] Physician: SHAMEKA BRONSON [place] Order #: [id number] DLP Dose#: PELVIC NODES: Normal. No adenopathy. PELVIC ORGANS: The vaginal canal is deviated minimally to the left but unchanged from previous exams. Surgical clips are present adjacent to the posterior vaginal canal. The uterus is unremarkable. Follicular cysts are present. No visible mass. Pelvic organs appropriate for patient age. BONES: Normal. No bony lesion or fracture. LUNG BASES: Normal. No visible pulmonary or pleural disease. OTHER: Negative. CONCLUSION: 1. Postsurgical changes are present in the pelvis and unchanged since prior exam. 2. There is no evidence of acute abdominopelvic abnormality. Dictated by: Emerald Dickson MD on 07/14/2018 at 12:42 Approved by: Emerald Dickson MD on 07/14/2018 at 12:42 Normal [facility] PELVIC 07-14-2018 [place] [address] Patient: LEONARD MIRANDA Phone#: : 1990 Age: 28 Gender: F Pt. Type: Out Account: [id number] Location: Ordering: FREIDA FAN Exam Date: 07/14/2018/8:39 Family Phys: SHAR BIRCH Charge Code: [id number] Physician: SHAMEKA BRONSON [place] Order #: [id number] DLP Dose#: PROCEDURE: PELVIC ULTRASOUND, TRANSABDOMINAL COMPARISON: [facility], US, PELVIC, 11/26/2016, 8:02. INDICATIONS: Vaginal Pain TECHNIQUE: Pelvic ultrasound was performed in the usual manner. FINDINGS: UTERUS: Size is 6.5 x 4.1 x 4.6 cm with unremarkable appearance. Endometrial thickness is 5.0 mm. ADNEXAE: Normal bilateral appearance with no significant masses. Each ovary is normal in size for a patient of this age. The right ovary is 2.7 x 2.7 x 1.9 cm. Left ovary is 2.9 x 2.2 x 3.1 cm. CUL-DE-SAC: Normal. No fluid or mass. OTHER: Negative. CONCLUSION: No acute disease. Dictated by: Emerald Dickson MD on 07/14/2018 at 9:31 Approved by: Emerald Dickson MD on 07/14/2018 at 9:31 Normal [facility] CT ABDOMEN/PELVIS Won 2017 CT ABDOMEN/PELVIS W [place] [address] Patient: LEONARD MIRANDA Phone#: : 1990 Age: 27 Gender: F Pt. Type: Out Account: [id number] Location: [facility] Exam Date: 10/01/2017/13:23 Family Phys: Charge Code: [id number] Physician: [place] Order #: [id number] DLP Dose#: PROCEDURE: CT ABDOMEN/PELVIS WITH CONTRAST COMPARISON: [facility], CT, ABDOMEN/PELVIS W CON, 09/07/2016, 8:31. [facility], CT, ABDOMEN/PELVIS W CON, 11/24/2016, 9:29. INDICATIONS: History of abdominal surgery TECHNIQUE: After obtaining the patient's consent, CT images were created with non-ionic intravenous contrast and oral contrast material. All CT scans at this facility use dose modulation, iterative reconstruction, and/or weight based dosing when appropriate to reduce radiation dose to as low as reasonably achievable. IV CONTRAST: Omnipaque 350,80ml TOTAL DOSE: 10.80 CTDIvol(mGy) FINDINGS: LIVER: Normal. No enlargement, atrophy, abnormal density, or significant focal lesion. BILIARY: Normal. No visible dilatation or calcification. PANCREAS: Normal. No lesion, fluid collection, ductal dilatation, or atrophy. SPLEEN: Normal. No enlargement or focal lesion. KIDNEYS: Normal. No mass, obstruction, or calcification. ADRENALS: Normal. No mass or enlargement. AORTA/VASCULAR: Normal. No aneurysm or dissection. RETROPERITONEUM: Normal. No mass or adenopathy. BOWEL/MESENTERY: Surgical clips are present posterior to the rectum. In the cystic mass identified on prior CT of 09/07/2016 is no longer present. There has been no interval change since exam of 11/24/2016.. No visible mass, obstruction, or bowel wall thickening. ABDOMINAL WALL: Normal. No mass or hernia. Continued Report - Page 2 of 2 Patient: LEONARD MIRANDA Phone#: : 1990 Age: 27 Gender: F Pt. Type: Out Account: [id number] Location: [facility]ing[facility] Exam Date: 10/01/2017/13:23 Family Phys: Charge Code: [id number] Physician: [place] Order #: [id number] DLP Dose#: URINARY BLADDER: Normal. No visible focal wall thickening, lesion, or calculus. PELVIC NODES: Normal. No adenopathy. PELVIC ORGANS: Normal. No visible mass. Pelvic organs appropriate for patient age. BONES: Normal. No bony lesion or fracture. LUNG BASES: Normal. No visible pulmonary or pleural disease. OTHER: Negative. CONCLUSION: 1. There is no evidence of acute abdominal or pelvic abnormality. 2. There has been no significant change since the exam of 11/24/2016. Dictated by: Emerald Dickson MD on 10/01/2017 at 13:54 Approved by: Emerald Dickson MD on 10/01/2017 at 13:54 Normal [facility] Vital Signs Date Time Vital Sign Value Performing Clinician Jesse neville 10-16-2024 08:24-0400 Body height 162.56 cm Shar [facility] Work Phone: [facility] 10-16-2024 08:21-0400 Body mass index (BMI) [Ratio] 29.7 kg/m2 Shar Birch PA Work Phone: [facility] 10-16-2024 08:21-0400 Body weight 78.47 kg Shar Birch PA Work Phone: [facility] 10-16-2024 08:21-0400 Diastolic blood pressure 72 mm[Hg] Shar Birch PA Work Phone: 6(105)829-859050 [place] [address] 10-16-2024 08:21-0400 Systolic blood pressure 118 mm[Hg] Shar Birch PA Work Phone: 3(906)554-860450 [place] [address] 09-25-2024 10:17-0400 Body height 162.56 cm Shar Birch PA Work Phone: 7(148)859-071248 [address] 09-25-2024 10:17-0400 Body mass index (BMI) [Ratio] 28.8 kg/m2 Shar Birch PA Work Phone: 8(525)443-614450 [place] [address] 09-25-2024 10:17-0400 Body weight 76.2 kg Shar Birch PA Work Phone: 1(171)396-043250 [place] [address] 09-25-2024 10:17-0400 Diastolic blood pressure 84 mm[Hg] Shar Birch PA Work Phone: 6(034)162-683450 [place] [address] 09-25-2024 10:17-0400 Systolic blood pressure 121 mm[Hg] Shar Birch PA Work Phone: [facility] 08-28-2024 09:33-0400 Body mass index (BMI) [Ratio] 28.3 kg/m2 Shar Birch PA Work Phone: 7(619)206-606150 [place] [address] 08-28-2024 09:33-0400 Body weight 74.89 kg Shar Birch PA Work Phone: 0(232)847-535450 [place] [address] 08-28-2024 09:33-0400 Diastolic blood pressure 70 mm[Hg] Shar Birch PA Work Phone: [facility] 08-28-2024 09:33-0400 Systolic blood pressure 106 mm[Hg] Shar Birch PA Work Phone: [facility] 08-03-2024 10:50-0400 Body mass index (BMI) [Ratio] 27.5 kg/m2 Shar Birch PA Work Phone: [facility] 08-03-2024 10:50-0400 Body weight 72.8 kg Shar Birch PA Work Phone: [facility] 08-03-2024 10:50-0400 Diastolic blood pressure 77 mm[Hg] Shar Birch PA Work Phone: [facility] 08-03-2024 10:50-0400 Systolic blood pressure 121 mm[Hg] Shar Birch PA Work Phone: [facility] 07-07-2024 13:52-0400 Body mass index (BMI) [Ratio] 26.5 kg/m2 Shar Birch PA Work Phone: [facility] 07-07-2024 13:52-0400 Body weight 70.08 kg Shar Birch PA Work Phone: [facility] 07-07-2024 13:52-0400 Diastolic blood pressure 81 mm[Hg] Shar Birch PA Work Phone: [facility] 07-07-2024 13:52-0400 Systolic blood pressure 133 mm[Hg] Shar Birch PA Work Phone: [facility] 06-09-2024 10:34-0500 Body mass index (BMI) [Ratio] 26.2 kg/m2 Shar Birch PA Work Phone: [facility] 06-09-2024 10:34-0500 Body weight 69.17 kg Shar Birch PA Work Phone: [facility] 06-09-2024 10:34-0500 Diastolic blood pressure 79 mm[Hg] Shar Birch PA Work Phone: [facility] 06-09-2024 10:34-0500 Systolic blood pressure 118 mm[Hg] Shar Birch PA Work Phone: [facility] 07-19-2023 08:28-0400 Body height 162.56 cm PA Shar Birch PA Work Phone: [facility] 07-19-2023 08:27-0400 Body mass index (BMI) [Ratio] 26.2 kg/m2 PA Shar Birch PA Work Phone: [facility] 07-19-2023 08:27-0400 Body weight 69.45 kg PA Shar Birch PA Work Phone: [facility] 07-19-2023 08:27-0400 Diastolic blood pressure 85 mm[Hg] PA Shar Birch PA Work Phone: [facility] 07-19-2023 08:27-0400 Systolic blood pressure 133 mm[Hg] PA Shar Birch PA Work Phone: [facility] Encounters Encounter Date Encounter Type Care Provider Facility Start: 10-16-2024 End: 10-16-2024 ambulatory Shar Birch PA Facility[place] Start: 10-16-2024 End: 10-16-2024 Patient encounter procedure Gabi KAUR -[facility] Work Phone: Start: 09-25-2024 End: 09-25-2024 Patient encounter procedure Monserrat Aguirre CNM -[facility] Work Phone: Start: 09-25-2024 End: 09-25-2024 ambulatory Shar Birch PA Work Phone: [facility] Work Phone: Start: 08-28-2024 End: 08-28-2024 Patient encounter procedure Gabi KAUR -[facility] Work Phone: Start: 08-28-2024 End: 08-28-2024 ambulatory Shar Birch PA Facility:[facility] Start: 08-15-2024 End: 08-15-2024 ambulatory MD [facility] Start: 08-03-2024 End: 08-03-2024 Patient encounter procedure Monserrat Aguirre CNM -[facility] Work Phone: Start: 08-03-2024 End: 08-03-2024 ambulatory Shar Birch PA Facility:[facility] Start: 07-07-2024 End: 07-07-[address] Shameka Bronson MD -[facility] Work Phone: Start: 07-07-2024 End: 07-07-2024 ambulatory Shar Birch PA Facility:[facility] Start: 06-09-2024 End: 06-09-[address] Nieves Tripp DO -[facility] Work Phone: Start: 06-09-2024 End: 06-09-2024 ambulatory Shar Birch PA Facility:[facility] Start: 06-09-2024 End: 06-09-2024 ambulatory Nieves Tripp Facility:[facility] Start: 04-29-2024 End: 04-29-2024 ambulatory [facility] Start: 07-19-2023 End: 07-19-2023 ambulatory PA Shar Loraer PA Work Phone: [facility] Work Phone: Start: 07-19-2023 End: 07-19-2023 Patient encounter procedure PA Shar Loraer PA Work Phone: [facility] Specimen Work Phone: Start: 07-19-2023 End: 07-19-2023 Patient encounter procedure PA Shar Loraer PA Work Phone: [facility] Work Phone: Start: 07-14-2018 End: 07-14-2018 Patient encounter procedure FREIDA FAN [facility] Start: 10-01-2017 End: 10-01-2017 Patient encounter procedure SHAR [facility] Alley kamara Pedro [address] Procedures Date Procedure Procedure Detail Performing Clinician Start: 06-09-2024 Urine culture Shar LUNA Work Phone: Start: 06-09-2024 Hepatitis B surface antigen measurement Shar LUNA Work Phone: Start: 06-09-2024 Hepatitis C antibody measurement Shar LUNA Work Phone: Comment on above: Non Reactive: < 0.8 Equivocal: >/= 0.8 to < 1.0 Reactive: >/= 1.0The CDC requires that a reactive/equivocal HCV antibody result be sent out for confirmation. HCV Quant by PCR testing. Start: 06-09-2024 Rubella IgG measurement Shar LUNA Work Phone: Comment on above: Antibody Results Int erpretation of Immune Status Non Reactive Presumed Non-Immune Equivocal Equivocal Reactive Presumed Immune Start: 01-14-2021 Psychotherapy w/teri ent 60 minutes [facility] Start: 12-17-2020 Psychotherapy w/teri ent 60 minutes [facility] Start: 11-28-2020 Psychiatric diagnost ic evaluation [facility] Start: 09-07-2019 Follow-up visit Plan of Treatment Date Care Activity Detail Author Start: 10-16-2024 CBC W Auto Different ial panel - Blood [facility] Start: 10-16-2024 Measurement of gluco se 2 hours after glucose challenge for glucose tolerance test [facility] Start: 10-16-2024 Serologic test for syphilis [facility] Start: 10-16-2024 [facility] CBC W Auto Different ial panel - Blood [facility] Erythrocyte mean cor puscular volume determination [facility] Hematocrit [Volume F raction] of Blood [facility] Hemoglobin [Mass/volume] in Blood [facility] Leukocytes [#/volume] in Blood [facility] Mean corpuscular hem oglobin concentration determination [facility] Mean corpuscular hem oglobin determination [facility] Measurement of gluco se 2 hours after glucose challenge for glucose tolerance test [facility] Neutrophil count [facility] Neutrophil percent d ifferential count [facility] Platelets [#/volume] in Blood [facility] Red blood cell count [facility] Red cell distributio n width determination [facility] Rubella IgG measurement [facility] Serologic test for syphilis [facility] Payers Date Payer Category Payer Self-pay [id number] 2024 Unknown [id number] 1990 Unknown [id number] 2.16.84 [id number] 1990 Unknown [id number] 2.16.84 [id number] 1990 Unknown [id number] 2.16. [id number] 1990 Unknown [id number] 2.16. [id number] Unknown [id number] Unknown [id number] 2.16.8 [id number] Unknown [id number] 2.16.8 [id number] Unknown [id number] 2.16.8 [id number] Unknown [id number] 2.16.8 [id number] Unknown [id number] 2.16.8 [id number] Unknown [id number] 2.16.8 [id number] Unknown [id number] 2.16.8 [id number] Social History Date Type Detail Facility Start: 1990 [facility] [address] Start: 05-16-2024 Never Smoked [facility] [address] Start: 07-19-2023 [facility] Start: 1990 Sex Assigned At Female [facility] Medical Equipment Procedure Code Equipment Code Equipment Original Text Equi pment Identifier Dates Procedure Implant ([id number]) Clinical Notes 07-19-2023 to 09-25-2024 Note Date & Type Note Facility 09-25-2024 Progress note [facility] 07-07-2024 Evaluation note Diagnosis Onset Date Resolution acute July 07 1:48pm Rh negative status during acute July 07 1:48pm S/P laparoscopy acute June 1:48pm Supervision of normal first acute July 07, 2024 1:48pm acute August 03 10:45am Rh negative status during acute August 03 10:45am S/P laparoscopy acute July 10:45am Supervision of normal first acute August 03, 2024 10:45am acute August 28, 2024 9:26am Rh negative status during acute August 28, 2024 9 :26am Supervision of normal first acute August 28, 2024 9: 26am acute September 25, 2024 10:13am Rh negative status during acute September 25, 2024 10:13am S/P laparoscopy acute September 25, 2024 10:13am Supervision of normal first acute September 25, 2024 10:13am acute October 16 8:13am Rh negative status during acute October 16, 2024 8:13am S/P laparoscopy acute September 8:13am Supervision of normal first acute October 16, 2024 8:13am [facility] Work Phone: 1(337) 606-693702-14-2025 Evaluation note* Diagnosis Onset Date Resolution Status Admit Date acute June 09, 2024 10:22am S/P laparoscopy acute June 09, 2024 10:22am Supervision of normal first acute June 09, 025 10:22am acute July 07 1:48pm Rh negative status during acute July 07, 2024 1:48pm S/P laparoscopy acute June 1:48pm Supervision of normal first acute July 07, 2024 1:48pm acute August 03 10:45am Rh negative status during acute August 03, 2024 10:45am S/P laparoscopy acute July 10:45am Supervision of normal first acute August 03, 2024 10:45am acute August 28, 2024 9:26am Rh negative status during acute August 28, 2024 9: 26am Supervision of normal first acute August 28, 2024 9: 26am acute September 25, 2024 10:13am Rh negative status during acute September 25, 2024 1 0:13am S/P laparoscopy acute September 25, 2024 10:13am Supervision of normal first acute September 25, 2024 1 0:13am [facility] Work Phone: [phone] NotePap Smear Specimen AdequacyMarch 2023 12:43pmComment.Satisfactory for evaluation. No endocervical component is identified.[facility] INTER[facility]ACED A#[id number] Regional Medical CenterComment on above:Satisfactory for evaluation. No endocervical component is identified. Consult note No Information to Report [facility] [address] discharge summary No Information to Report [facility] [address] Evaluation note No Information to Report [facility] [address] Evaluation note* Diagnosis Onset Date Resolution Status Encounter for routine gynecological examination noneactive [facility] Work Phone: History and physical note No Information to Report [facility] [address] procedure note No Information to Report [facility] [address] progress note No Information to Report [facility] [address] progress note Author Monserrat Aguirre [facility] Note Date/Time September 25, 2024 10:41 am [facility] [address], [address] [place] [address] OFFICE VISIT Date of Service: 09/25/24 MR#: [id number] Acct: [id number] Name: LEONARD MESSINA JANENE Rep #: [id number] : 1990 Provider: KATHERIN Aguirre Age/Sex: 34/F Location: [facility] Status: Signed Intake Vital Signs 08/03/24 10:50 08/28/24 09:33 09/25/24 10:17 Height 5 ft 4 in 5 ft 4 in 5 ft 4 in Weight: 160 lb 8 oz 165 lb 2 oz 168 lb BMI 27.5 28.3 28.8 BP 121/77 H 106/70 121/84 H Intake Visit Reasons: 25 wk ob Chief Complaint: 25wk OB Sales Support Consultant Required: No Is patient in pain?: No Allergies amoxicillin Allergy (Mild, Verified 09/25/24 10:14) Other Medications ?Medication ?Instructions ?Recorded ?Confirmed ?Type magnesium glycinate 100 mg (as 100 mg PO QDAY 05/16/24 09/25/24 History glycinate) tablet vitamins no.163-iron tab PO 05/16/24 09/25/24 History bis-gly 20 mg-folate no.10 1 mg tablet (PNV Tabs 20-1) Last Menstrual Period: 04/03/24 : No Have you fallen in the past year?: No PFSH PFSH Surgical History S/P laparoscopy Social History adopted: No household members: spouse 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 status: employed current occupation: [employer] 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 exposures/hazards: No pets and animals: Yes pets and animals: dog(s) history of recent travel: Yes (- April) out of state: Yes out of country: No sexually active: Yes Smoking Status: Never smoker alcohol intake: current alcohol intake frequency: holidays/special occasions only details: not while substance use type: does not use diet: other well-balanced diet: daily or most days caffeine: Yes Type: coffee Number of servings: 1 eating out: rarely or never during the past year weight has: remained stable what type of physical activity do you participate in: none sim/latter day: Jew seatbelt use: always do you feel safe at home: Yes additional social history: Tanvir Messina 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 OB Visit DIEGO Calculator Estimated Delivery Date Method Current WG Current Estimate 01/08/25 LMP (Certain) 25w 0d Other Estimates 01/11/25 Ultrasound #1 24w 4d Expected Delivery Route/Plan Labor Preferences- CB/BF classes: [] labor support person: [] labor intervention preferences: [] pain management options preferred: [] cut cord/dad catch: [] : [] PP control planned: [] discussed possible routes of delivery and associated risks: [] special requests: [] Specific Issue/Plans Covid status: [] Flu vaccine: [] Tdap vaccine: [] Rhogam: [] LARC form signed: [] Problem list reviewed and updated with the most current plan of care details and appropriate orders placed. Relevant counseling for the gestational age provided. Continue routine care and follow up unless otherwise noted in visit notes/problem list details Initial Weight: Not Recorded Date -?-?-?-?-?-?-?-?-?-?-?-?- EGA Weight BP Urine Prot -?-?-?-?-?-?-?-?-?-?-?-?- Glucose FHR FuHt Pres Dilation -?-?-?-?-?-?-?-?-?-?-?-?- Effaced St Visit Note 06/09/24 -?-?-?-?-?-?-?-?-?-?-?-?- 9w 4d 152 lb 8 oz 118/79 -?-?-?-?-?-?-?-?-?-?-?-?- 180 -?-?-?-?-?-?-?-?-?-?-?-?- JV- CRL is consi stent with LMP. declines NIPT. first baby, has h/o rectovaginal surgery for a large cyst. see attached op note. 07/07/24 -?-?-?-?-?-?-?--?-?-?-?-?- 13w 4d 154 lb 8 oz 133/81 Nega tive -?-?-?-?-?-?-?-?-?-?-?-?- Negative 150 -?-?-?-?-?-?-?-?-?-?-?-?- SM- no vb crampi ng 08/03/24 -?-?-?-?-?-?-?-?-?-?-?-?- 17w 3d 160 lb 8 oz 121/77 Nega tive -?-?-?-?-?-?-?-?-?-?-?-?- Negative 150 -?-?-?-?-?-?-?-?-?-?-?-?- KW- no vb/crampi ng. possible flutters. US scheduled. AFP discussed and declined 08/28/24 -?-?-?-?-?-?-?-?-?-?-?-?- 21w 0d 165 lb 2 oz 106/70 Trac e -?-?-?-?-?-?-?-?--?-?-?-?- Negative 160 -?-?-?-?-?-?-?-?-?-?-?-?- MH-No VB. Kirk g movement. Denies concerns 09/25/24 -?-?-?-?-?-?-?-?-?-?-?-?- 25w 0d 168 lb 121/84 Negative -?-?-?-?-?-?-?-?-?-?-?-?- Negative 150 26 -?-?-?-?-?-?-?-?-?-?-?-?- KW- no vb/lof/ct x. good fm. glucose next visit. CBE classes discussed. ACOG First Trimester First Trimester: Discussed ROS Const Reports system reviewed and no additional complaints, except as documented Eyes Reports system reviewed and no additional complaints, except as documented ENT Reports system reviewed and no additional complaints, except as documented Card Reports system reviewed and no additional complaints, except as documented Resp Reports system reviewed and no additional complaints, except as documented GI Reports system reviewed and no additional complaints, except as documented, Denies nausea and Denies vomiting Reports system reviewed and no additional complaints, except as documented Musc Reports system reviewed and no additional complaints, except as documented Skin/Breast Reports system reviewed and no additional complaints, except as documented Neuro Yes system reviewed and no additional complaints, except as documented Psych Reports system reviewed and no additional complaints, except as documented Endo Reports system reviewed and no additional complaints, except as documented Phillip/Lymph Reports system reviewed and no additional complaints, except as documented Aller/Immun Reports system reviewed and no additional complaints, except as documented Exam Const General: cooperative, healthy appearing and no acute distress Orientation: alert, awake and oriented x3 Neck Neck: normal visual inspection and full ROM Resp Effort & Inspection: normal respiratory effort, able to speak in complete sentences and symmetric chest movement GI Inspection: normal to inspection Palpation: soft and other Other: gravid Skin General: no rashes or lesions noted Neuro General: patient alert, patient awake and patient oriented x3 Cognition: normal cognition Speech: speech normal Gait: normal gait Motor: muscle tone normal throughout Extrem General: normal to inspection and full ROM Psych Appearance: grossly normal Mental Status: mental status grossly normal Mood: congruent mood Affect: normal affect Speech and Movement: speech and movement normal Attitude: cooperative Thought Process: normal Thought Content: normal Judgment: judgment good Results POC Urinalysis 2 Dip (Clinic) Office Urine Glucose Negative Last Edit by Eda Aponte on 09/25/24 10:23 Office Urine Protein Negative Last Edit by Eda Aponte on 09/25/24 10:23 Coding Level of Care Code OB Routine Diagnoses Rh negative status during in second trimester O26.892; Z67.91 Trimester: second trimester S/P laparoscopy Z98.890 Encounter for supervision of normal first in second trimester Z34.02 Trimester: second trimester 25 weeks gestation of Z3A.25 Weeks of gestation: 25 weeks Assessment and Plan Assessment and Plan (1) Rh negative status during : Status: Acute Qualifiers: Trimester: second trimester Qualified Code(s): O26.892 - Other specified related conditions, second trimester; Z67.91 - Unspecified blood type, Rh negative Comment: rhogam 28 wk, pp and prn bleeding (2) S/P laparoscopy: Status: Acute Comment: 2017 pelvic mass excision at [place], transvaginal repair, enterotomy repair (3) Supervision of normal first : Status: Acute Qualifiers: Trimester: second trimester Qualified Code(s): Z34.02 - Encounter for supervision of normal first , second trimester Comment: , DIEGO 01/08/25, Tanvir Messina (4) : Status: Acute Qualifiers: Weeks of gestation: 25 weeks Qualified Code(s): Z3A.25 - 25 weeks gestation of Comment: discussed NIPT & Carrier testing- Undecided, normal anatomy Orders: Orders POC Urinalysis 2 Dip (Clinic) Today CBC W/Diff, Automated Today O26.892 - Other specified related conditions, second trimester, Z34.02 - Encounter for supervision of normal first , second trimester, Z3A.25 - 25 weeks gestation of , Z67.91 - Unspecified blood type, Rh negative Type & Screen Today O26.892 - Other specified related conditions, second trimester, Z34.02 - Encounter for supervision of normal first , second trimester, Z3A.25 - 25 weeks gestation of , Z67.91 - Unspecified blood type, Rh negative Glucose Challenge Gest 1H 50g Today Z13.1 - Encounter for screening for diabetes mellitus HIV Today Syphilis Antibodies Today Z34.02 - Encounter for supervision of normal first , second trimester, Z3A.25 - 25 weeks gestation of Plan Details Additional Comments: ACOG trimester education reviewed and updated. see problem list details for updated plan management information and see below for orders placed at this visit. GA appropriate handout given. Clinical Quality Measures Falls Risk Screening/Assistive Devices Have you fallen in the past year?: No 09/25/24 1041 <Electronically signed by Monserrat lieberman CNM> Date _ Monserrat Aguirre CNM Cosigner Signature: Date (if applicable) CC: ~ [facility] [employer] Work Phone: Reason for referral (narrative)No reason for referral information availableCastorland Medical Services Work Phone: Summary Purpose Family History No Family History Records FoundNo Family History Records FoundNo Family History Records FoundNo Family History Records FoundNo Family History Records FoundNo Family History Records Found Advance Directives No Advanced Directives Records FoundNo Advanced Directives Records FoundNo Advanced Directives Records FoundNo Advanced Directives Records FoundNo Advanced Directives Records FoundNo Advanced Directives Records Found Chief Complaint and Reason for Visit 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) Reason for Visit Encounter for routin e gynecological examination Chief Complaint Admit Date New OB, LMP 04/03/24, DIEGO 01/08/25 Februar y 2024 10:22am 13wk OB July 07, 2024 1:4 8pm 17 wk ob August 03, 2024 10: 45am 21wk ob August 28, 2024 9:26am 25 wk ob September 25, 2024 10:13 am Reason for Visit Admit Date June 09, 2024 10:22am S/P laparoscopy June 09, 2024 10:22am Supervision of normal first Fe bruary 2024 10:22am July 07, 2024 1:4 8pm Rh negative status during Ramone h 2024 1:48pm S/P laparoscopy July 07, 2024 1:4 8pm Supervision of normal first Ma rch 2024 1:48pm August 03, 2024 10: 45am Rh negative status during Apri l 2024 10:45am S/P laparoscopy August 03, 2024 10: 45am Supervision of normal first Ap ril 2024 10:45am August 28, 2024 9:26am Rh negative status during August 28, 2024 9:26am Supervision of normal first Ma y 2024 9:26am September 25, 2024 10:13 am Rh negative status during September 25, 2024 10:13am S/P laparoscopy September 25, 2024 10:13 am Supervision of normal first Ju 2024 10:13am Chief Complaint Admit Date 13wk OB July 07, 2024 1:4 8pm 17 wk ob August 03, 2024 10: 45am 21wk ob August 28, 2024 9:26am 25 wk ob September 25, 2024 10:13 am 28wk ob/glucose *rhogam October 16, 2024 8:13am Reason for Visit Admit Date July 07, 2024 1:4 8pm Rh negative status during Ramone h 2024 1:48pm S/P laparoscopy July 07, 2024 1:4 8pm Supervision of normal first Ma rch 2024 1:48pm August 03, 2024 10: 45am Rh negative status during Apri l 2024 10:45am S/P laparoscopy August 03, 2024 10: 45am Supervision of normal first Ap ril 2024 10:45am August 28, 2024 9:26am Rh negative status during August 28, 2024 9:26am Supervision of normal first Ma y 2024 9:26am September 25, 2024 10:13 am Rh negative status during September 25, 2024 10:13am S/P laparoscopy September 25, 2024 10:13 am Supervision of normal first Ju ne 2024 10:13am October 16, 2024 8:13 am Rh negative status during October 16, 2024 8:13am S/P laparoscopy October 16, 2024 8:13 am Supervision of normal first Ju ne 2024 8:13am Additional Source Comments INFORMATION SOURCE (unrecogn ized section and content) DATE CREATED AUTHOR [facility]/14/2018 [facility] DATE CREATED AUTHOR AUTHOR'S ORGANIZ ATION 09/08/2019 [facility] [place] DATE CREATED AUTHOR AUTHOR'S ORGANIZ ATION 03/22/2020 [facility] [facility] DATE CREATED AUTHOR AUTHOR'S ORGANIZ ATION 05/06/2024 [facility] DATE CREATED AUTHOR AUTHOR'S ORGANIZ ATION 08/18/[address] [facility] DATE CREATED AUTHOR AUTHOR'S ORGANIZ ATION 10/13/2024 [facility] Care Teams (unrecognized sec tion and content) Team Status: Active Member Role Status Dates JEREMY Handy Primary Care Provider Active Team Status: Inactive Member Role Status Dates JEREMY Handy Primary Care Provider, Referring Provider Active Dr. Shameka Bronson MD Attending Provider Active Team Status: Inactive Member Role Status Dates Shar Birch PA, PA Primary Care Provider Active Dr. Shameka Bronson MD Attending Provider, Referr ing Provider Active Team Status: Inactive Member Role Status Dates Shar Birch PA, PA Primary Care Provider Active Start: June 09, 2024 End: June 09, 2024 Shar Birch PA, PA Referring Provider Active Start: June 09, 2024 End: June 09, 2024 Dr. Nieves Tripp DO Attending Provider Activ e Start: June 09, 2024 End: June 09, 2024 Team Status: Inactive Member Role Status Dates Shar Birch PA, PA Primary Care Provider Active Start: June 09, 2024 End: June 09, 2024 Dr. Nieves Tripp DO Attending Provider Activ e Start: June 09, 2024 End: June 09, 2024 Dr. Nieves Tripp DO Referring Provider Activ e Start: June 09, 2024 End: June 09, 2024 Team Status: Inactive Member Role Status Dates Shar Birch PA, PA Primary Care Provider Active Start: July 07, 2024 End: July 07, 2024 Shar Birch PA, PA Referring Provider Active Start: July 07, 2024 End: July 07, 2024 Dr. Shameka Bronson MD Attending Provider Active Start: July 07, 2024 End: July 07, 2024 Team Status: Inactive Member Role Status Dates Shar Birch PA, PA Primary Care Provider Active Start: August 03, 2024 End: August 03, 2024 Shar Birch PA, PA Referring Provider Active Start: August 03, 2024 End: August 03, 2024 Monserrat Aguirre CNM Attending Provider Active S tart: August 03, 2024 End: August 03, 2024 Team Status: Inactive Member Role Status Dates Shar Birch PA, PA Primary Care Provider Active Start: August 28, 2024 End: August 28, 2024 Shra Birch PA, PA Referring Provider Active Start: August 28, 2024 End: August 28, 2024 Gabi Powers NP, MANAGER [employer]-C Attending Provider Active Start: August 28, 2024 End: August 28, 2024 Team Status: Inactive Member Role Status Dates Shar Birch PA, PA Primary Care Provider Active Start: September 25, 2024 End: September 25, 2024 JEREMY Handy Referring Provider Active Start: September 25, 2024 End: September 25, 2024 Monserrat Aguirre CNM Attending Provider Active S tart: September 25, 2024 End: September 25, 2024 Team Status: Inactive Member Role Status Dates JEREMY Handy Primary Care Provider Active Start: October 16, 2024 End: October 16, 2024 JEREMY Handy Referring Provider Active Start: October 16, 2024 End: October 16, 2024 Gabi Powers NP, MANAGER CR[employer]-C Attending Provider Active Start: October 16, 2024 End: October 16, 2024 Team Status: Active Member Role Status Dates JEREMY Handy Primary Care Provider Active Start: October 16, 2024 Monserrat Aguirre CNM Attending Provider Active S tart: October 16, 2024 Monserrat Aguirre CNM Referring Provider Active S tart: October 16, 2024 Goals (unrecognized section and content) Goals may be documented in a n alternate section FOR RECORDS PERTAINING TO PATIENTS WHO ARE OR HAVE BEEN ENROLLED IN A CHEMICAL DEPENDENCY/SUBSTANCEABUSE PROGRAM, SOME INFORMATION MAY BE OMITTED. This clinical summary was aggregated from multiple sources. Caution should be exercised in using it in the provision of clinical care. This summary normalizes information from multiple sources, and as a consequence, information in this document may materially change the coding, format and clinical context of patient data. In addition, data may be omitted in some cases. CLINICAL DECISIONS SHOULD BE BASED ON THE PRIMARY CLINICAL RECORDS. [employer] provides no warranty or guarantee of the accuracy or completeness of information in this document.
[2024-10-16 12:06] LABS: Absolute Lymphocyte Count 1.39 X10^3/uL (0.83-4.51); Absolute Neutrophil Count 9.4 X10^3/uL (2.0-7.7); Basophil# 0.04 X10^3/uL; Basophil% 0.3 % (0-1); Eosinophil# 0.13 X10^3/uL; Eosinophils% 1.1 % (0-5); Hematocrit 36.1 % (37-47); Hemoglobin 11.7 g/dL (12.0-15.0); Lymphocyte # 1.39 X10^3/ul (0.83-4.51); Mean Corp Hgb Conc 32.4 g/dL (32-36); Mean Corpuscular Hgb 30.4 pg (27.0-32.0); Mean Corpuscular Volume 93.8 fL (81-99); Mean Platelet Vol. 10.8 fl (6.2-12.0); Monocyte# 0.59 X10^3/uL; Monocyte% 5.1 % (0-10); NRBC Flagged by Analyzer 0 % (0-5); Neutrophil # 9.37 X10^3/uL (2.7-7.7); Neutrophil % 80.8 % (47-70); Platelet Count 185 K/mm3 (150-450); RBC Distribution Width CV 13.6 % (11.6-14.6); RBC Distribution Width SD 46.2 fl (35.1-43.9); Red Blood Count 3.85 M/mm3 (4.2-5.4); White Blood Count 11.6 K/mm3 (4.4-11.0)
[2024-10-16 13:32] LABS: Glucose Challenge Gest 1H 50g 149 mg/dL (70-140); HIV Nonreactive (Nonreactive); Syphilis Antibodies Nonreactive (Nonreactive)
== END | disposition home or self-care (01) ==
PROVIDERS: PCP Physician Assistant; Referring Provider Advanced Practice Midwife; Visit Provider Advanced Practice Midwife
DX: O26.892 Other specified pregnancy related conditions, second trimester (principal); Z3A.25 25 weeks gestation of pregnancy; Z67.91 Unspecified blood type, Rh negative; Z13.1 Encounter for screening for diabetes mellitus
CPT/HCPCS: 36415; 82950; 85025; 86703; 86780; 86850; 86900; 86901

== ENCOUNTER → 2024-10-24 | Outpatient (CLI) | payer OTHER, SELFPAY ==
--- OUTSIDE RECORDS SUMMARY | 2024-10-24 06:55 | XMS RPT_ITS | CCD ---
Author Organization [facility] CliniSymt Care Team Providers Care Human Resources Administrator Name Role Phone SHAR BIRCH Admitting Unavailable SHAR BIRCH Attending Unavailable SHAR BIRCH Primary Care Unavailable SHAR BIRCH Consulting Unavailable PROVIDER, UNKNOWN Consulting Unavailable FREIDA FAN Admitting Unavailable FREIDA FAN Attending Unavailable FREIDA FAN Primary Care Unavailable SHAR BIRCH Consulting Unavailable SHAMEKA BRONSON MD Referring Unavailab le PROVIDER, UNKNOWN Consulting Unavailable Alley Navarro Unavailable [phone] JEREMY Aleman Primary Care Provider JEREMY Aleman Referring Provider Dr. Shameka Bronson Attending Provider ZOË APONTE Attending Unavailable YOLANDE PRIMARY MD FLIP Primary Care Unavailable TRICE JONES Attending Unavailable SHAMEKA BRONSON Referring Unavailabl e Shar Aleman Primary Care Provider Shar Aleman Referring Provider Dr. Nieves Tripp DO Attending Provider Dr. Nieves Tripp DO Referring Provider Dr. Shameka Bronson MD Attending Provider [phone] Monserrat Aguirre CNM Attending Provider Gabi Clifford Attending Provider Shar Aleman Primary Care Provider Shar Aleman Referring Provider Monserrat Aguirre CNM Referring Provider Shar Aleman Primary Care Unavailable Monserrat Aguirre Referring Unavailable Monserrat Aguirre Attending Unavailable Birch PA, Shar Primary Care Unavailable Priya INBOUND CALL CENTER AGENT, Gabi Attending Unavailable Birch PA, Shar Referring Unavailable Monserrat Aguirre Attending Unavailable Birch PA, Shar Primary Care Unavailable Birch PA, Shar Referring Unavailable Birch PA, Shar Primary Care Unavailable Priya INBOUND CALL CENTER AGENT, Gabi Attending Unavailable Birch PA, Shar Referring Unavailable Birch PA, Shar Referring Unavailable Nieves Tripp Attending Unavailabl e Birch PA, Shar Primary Care Unavailable Birch PA, Shar Referring Unavailable Birch PA, Shar Primary Care Unavailable Shameka Bronson Attending Unavailable Monserrat Aguirre Attending Unavailable Birch PA, Shar Primary Care Unavailable Birch PA, Shar Referring Unavailable Monserrat Aguirre Attending Unavailable Monserrat Aguirre Referring Unavailable Birch PA, Shar Primary Care Unavailable Birch PA, Shar Primary Care Unavailable Nieevs Tripp Attending Unavailthalia e Nieves Tripp Referring Unavailabl e Allergies Allergy Classification Reported Allergen(s) Allergy Type Date of Onset Reaction(s) Facility (1 source) Amoxicillin Drug Allergy [facility] Repository (4 sources) Amoxicillin Drug Allergy 07-19-2023 Other [facility] (1 source) Amoxicillin Drug Allergy 10-16-2024 [facility] Repository Medications Current Medications Medication Drug Class(es) Dates Sig (Normalized) Sig (Original) Iron (3 sources) Start: 05-16-2024 Pnv No.382-[id number] No.10 (Pnv Tabs 20-1) 20 mg iron- 1 mg tablet Active {tbl} PO May 16, 2024 1:00am magnesium glycinate 100 mg oral tablet (3 sources) Start: 05-16-2024 take 1 tablet by mouth once daily Magnesium Glycinate 100 mg tablet Active 100 mg PO daily May 16, 2024 1:00am Kamas (Nk) (1 source) Start: 07-19-2023 Kamas (Nk) Active July 19, 2023 12:00am Completed/Discontinued Medications Medication Drug Class(es) Dates Sig (Normalized) Sig (Original) DULoxetine 30 mg delayed release oral capsule (4 sources) Serotonin and Norepinephrine Reuptake Inhibitor Start: 08-01-2018 End: 06-01-2019 take 1 capsule by mouth once daily Duloxetine (Cymbalta) 30 mg capsule,delayed release(DR/EC) Discontinued 30 mg PO DAILY 24 04August 01, 2018 12:00am June 01, 2019 9:04am Norgestimate-Ethi nyl Estradiol (20 sources) Progestin, Estrogen Start: 07-14-2021 End: 07-16-2022 take 1 tablet by mouth once daily Norgestimate-Ethin yl Estradiol (Sprintec (28)) 0.25-35 mg-mcg tablet Discontinued 1 {tbl} PO DAILY 84 July 14, 2021 8:54am July 16, 2022 [...] mg-mcg tablet Discontinued 1 TABLET PO DAILY 84 September 24, 2020 8:28am July 14, 2021 8:55am Only take active pills, discard placebo Start: 01-03-2020 End: 09-24-2020 take 1 tablet by mouth once daily Norgestimate-Ethinyl Estradiol (Sprintec (28)) 0.25-35 mg-mcg tablet Discontinued 1 {tbl} PO DAILY 84 January 03, 2020 8:48am September 24, 2020 8:28am Only take active pills, discard placebo Start: 01-03-2020 End: 09-24-2020 take 1 tablet by mouth once daily Norgestimate-Ethinyl Estradiol (Sprintec (28)) 0.25-35 mg-mcg tablet Discontinued 1 {tbl} PO DAILY 84 January 03, 2020 8:48am September 24, 2020 [...] mg-mcg tablet Discontinued 1 {tbl} PO DAILY March 17, 2019 5:46pm January 03, 2020 8:48am Only take active pills, discard placebo Start: 03-17-2019 End: 01-03-2020 take 1 tablet by mouth once daily Norgestimate-Ethinyl Estradiol (Sprintec (28)) 0.25-35 mg-mcg tablet Discontinued 1 TABLET PO DAILY 84 November 22nd, 2019 5:46pm January 03, 2020 8:48am Only take active pills, discard placebo Start: 02-22-2019 End: 03-17-2019 Norgestimate-Ethinyl Estradi ol (Sprintec (28)) 0.25-35 mg-mcg tablet Discontinued 1 {tbl} PO DAILY 84 February 22, 2019 4:04pm March 17, 2019 5:47pm Start: 02-22-2019 End: 03-17-2019 Norgestimate-Ethinyl Estradi ol [...] Problem Date Documented Date Episodic/Chronic Abdominal pain (4 sources) Chronic pelvic pain of female; Translations: [Pelvic and perineal pain] 07-16-2022 Episodic Comment on above: s/p PFPT Anxiety disorders (4 sources) Anxiety disorder; Translations: [Anxiety disorder, unspecified] Onset: 11-28-2020 11-28-2020 Chronic Diabetes or abnormal glucose tolerance complicating ; childbirth; or the puerperium (2 sources) Abnormal glucose level; Translations: [Abnormal glucose complicating ] Onset: 10-16-2024 10-16-2024 Episodic Genitourinary symptoms and ill-defined conditions (1 source) Unspecified symptoms and signs involving the genitourinary system; Translations: [Unspecified symptoms and signs involving the genitourinary system] Onset: 04-29-2024 Episodic Other complications of (17 sources) RhD negative; Translations: [Other specified related conditions, unspecified trimester] 08-28-2024 Episodic Comment on above: rhogam 28 wk, pp and prn bleeding rhogam 28 wk, pp and prn bleeding, Given 10/16/24 Other complications of (1 source) Other specified related conditions, second trimester; Translations: [Other specified related conditions, second trimester] Onset: 10-20-2024 Episodic Other complications of (1 source) Other specified related conditions, unspecified trimester; Translations: [Other specified related conditions, unspecified trimester] Onset: 08-03-2024 Episodic Other female genital disorders (4 sources) Pelvic congestion syndrome; Translations: [Other specified conditions associated with female genital organs and menstrual cycle] 07-16-2022 Episodic Comment on above: resolved with physic al therapy Other and delivery including normal (20 sources) Normal ; Translations: [Encounter for supervision of normal first , unspecified trimester] Onset: 06-09-2024 08-28-2024 Episodic Comment on above: , DIEGO 01/08/25, H magdalena Messina discussed NIPT & Car rier testing- Undecided, normal anatomy Residual codes; unclassified (16 sources) History of laparoscopy; Translations: [Other specified postprocedural states] 07-19-2023 Episodic Comment on above: 2017 pelvic mass exc ision at [place], transvaginal repair, enterotomy repair Residual codes; unclassified (1 source) Unspecified blood type, Rh negative; Translations: [Unspecified blood type, Rh negative] Onset: 10-16-2024 Episodic Residual codes; unclassified (1 source) 25 [...] Test Name Value Interpretation Reference Range Facility Absolute lymphocyte countOrd ered By: Monserrat Aguirre on 10-16-2024 Lymphocytes Auto (Unsp spec) [#/Vol] 1.39 10*3/uL 0.83-4.51 [facility] Absolute neutrophil countOrd ered By: Monserrat Aguirre on 10-16-2024 Neutrophils (Bld) [#/Vol] 9.4 10*3/uL High 2.0-7.7 [facility] Automated lymphocyte count a s percentage of total leukocytesOrdered By: Monserrat Aguirre on 10-16-2024 Lymphocytes/100 WBC Auto (Unsp spec) 12.0 % Low 19-41 [facility] Basophil percentageOrdered B y: Monserrat Aguirre on 10-16-2024 Basophils/100 WBC (Bld) 0.3 % 0-1 [facility] CBC W/Diff, Automatedon 09-25 Absolute Lymph 1.39 X10 3/uL Normal 0.83-4.51 [facility] Comment on above: Performed By: #### L 3890.6006, BTS, L501.0250, L100.0100, L509.8002 ####[facility] [address] [place], [address] Absolute Neut 9.4 X10 3/uL High 2.0-7.7 [facility] Comment on above: Performed By: #### L 3890.6006, BTS, L501.0250, L100.0100, L509.8002 ####[facility] [address] [place], [address] Basophils/100 WBC (Bld) 0.3 % Normal 0-1 [facility] Comment on above: Performed By: #### L 3890.6006, BTS, L501.0250, L100.0100, L509.8002 ####[facility] [address] [place], [address] Eosinophils/100 WBC (Bld) 1.1 % Normal 0-5 [facility] Comment on above: Performed By: #### L 3890.6006, BTS, L501.0250, L100.0100, L509.8002 ####[facility] [address] [place], [address] Erythrocyte distribution width (RBC) [Ratio] 13.6 % Normal 11.6-14.6 [facility] Comment on above: Performed By: #### L 3890.6006, BTS, L501.0250, L100.0100, L509.8002 ####[facility] [address] [place], [address] Hematocrit (Bld) [Volume fraction] 36.1 % Low 37-47 [facility] Comment on above: Performed By: #### L 3890.6006, BTS, L501.0250, L100.0100, L509.8002 ####[facility] [address] [place], [address] Hemoglobin (Bld) [Mass/Vol] 11.7 g/dL Low 12.0-15.0 [facility] Comment on above: Performed By: #### L 3890.6006, BTS, L501.0250, L100.0100, L509.8002 ####[facility] [address] [place], [address] IG% 0.700 Normal 0.0-0.9 [facility] Comment on above: Result Comment: IG% - Immature Granulocytes (promyelocytes, myelocytes and metamyelocytes) > 1% indicates that a LEFT SHIFT is Present. Performed By: #### L 3890.6006, BTS, L501.0250, L100.0100, L509.8002 ####[facility] [address] [place], [address] Lymphocytes/100 WBC (Bld) 12.0 % Low 19-41 [facility] Comment on above: Performed By: #### L 3890.6006, BTS, L501.0250, L100.0100, L509.8002 ####[facility] [address] [place], [address] MCH (RBC) [Entitic mass] 30.4 pg Normal 27.0-32.0 [facility] Comment on above: Performed By: #### L 3890.6006, BTS, L501.0250, L100.0100, L509.8002 ####[facility] [address] [place], [address] MCHC (RBC) [Mass/Vol] 32.4 g/dL Normal 32-36 [facility] Comment on above: Performed By: #### L 3890.6006, BTS, L501.0250, L100.0100, L509.8002 ####[facility] [address] [place], [address] MCV (RBC) [Entitic vol] 93.8 fL Normal 81-99 [facility] Comment on above: Performed By: #### L 3890.6006, BTS, L501.0250, L100.0100, L509.8002 ####[facility] [address] [place], [address] Monocytes/100 WBC (Bld) 5.1 % Normal 0-10 [facility] Comment on above: Performed By: #### L 3890.6006, BTS, L501.0250, L100.0100, L509.8002 ####[facility] [address] [place], [address] Neutrophils/100 WBC (Bld) 80.8 % High 47-70 [facility] Comment on above: Performed By: #### L 3890.6006, BTS, L501.0250, L100.0100, L509.8002 ####[facility] [address] [place], [address] Nucleated RBC (Bld) [#/Vol] 0 10*3/uL Normal 0-5 [facility] Comment on above: Performed By: #### L 3890.6006, BTS, L501.0250, L100.0100, L509.8002 ####[facility] [address] [place], [address] Platelet mean volume (Bld) [Entitic vol] 10.8 fL Normal 6.2-12.0 [facility] Comment on above: Performed By: #### L 3890.6006, BTS, L501.0250, L100.0100, L509.8002 ####[facility] [address] [place], [address] Platelets (Bld) [#/Vol] 185 10*3/uL Normal 150-450 [facility] Comment on above: Performed By: #### L 3890.6006, BTS, L501.0250, L100.0100, L509.8002 ####[facility] [address] [place], [address] RBC (Bld) [#/Vol] 3.85 10*6/uL Low 4.2-5.4 [facility] Comment on above: Performed By: #### L 3890.6006, BTS, L501.0250, L100.0100, L509.8002 ####[facility] [address] [place], [address] RDW SD 46.2 fl High 35.1-43.9 [facility] Comment on above: Performed By: #### L 3890.6006, BTS, L501.0250, L100.0100, L509.8002 ####[facility] [address] [place], [address] WBC (Bld) [#/Vol] 11.6 10*3/uL High 4.4-11.0 [facility] Comment on above: Performed By: #### L 3890.6006, BTS, L501.0250, L100.0100, L509.8002 ####[facility] [address] [place] [place], [address] Eosinophil percentageOrdered By: Monserrat Aguirre on 10-16-2024 Eosinophils/100 WBC (Bld) 1.1 % 0-5 [facility] Erythrocyte distribution wid th ratioOrdered By: Monserrat Aguirre on 10-16-2024 Erythrocyte distribution width (RBC) [Ratio] 13.6 % 11.6-14.6 [facility] Erythrocyte distribution wid th standard deviationOrdered By: Monserrat Aguirre on 10-16-2024 Erythrocyte distribution width (RBC) [Ratio] 46.2 fl High 35.1-43.9 [facility] Glucose Challenge Gest 1H 50 nicky 10-16-2024 GLU GEST 50g 1H 149 mg/dL High 70-140 [facility] Comment on above: Performed By: #### L 3890.6006, BTS, L501.0250, L100.0100, L509.8002 ####[facility] [address] [place], [address] Glucose measurement at 2 daphney rs post-dose gestational glucose tolerance testOrdered By: Monserrat Aguirre on 10-16-2024 Glucose [Mass/Vol] 149 mg/dL High 70-140 [facility] HIVon 10-16-2024 HIV Non-Reactive Normal Nonreactive [facility] Comment on above: Result Comment: Non- Reactive Reactive Repeatedly reactive samples must be confirmed according to CDC recommended confirmatory algorithms. The subresults for either HIVAG or AHIV can be used as an aid in the selection of the confirmation algorithm for reactive samples. Send out specimens with Reactive results to [facility] for confirmation. Order the HIV antibody detection and differentiation: lc#[id number] Performed By: #### L 3890.6006, BTS, L501.0250, L100.0100, L509.8002 ####[facility] [address] [place], [address] Hematocrit Auto (Bld) [Volum e fraction]Ordered By: Monserrat Aguirre on 10-16-2024 Hematocrit (Bld) [Volume fraction] 36.1 % Low 37-47 [facility] Hemoglobin measurementOrdere d By: Monserrat Aguirre on 10-16-2024 Hemoglobin (Bld) [Mass/Vol] 11.7 g/dL Low 12.0-15.0 [facility] Immature granulocytes/100 WB C Auto (Bld)Ordered By: Monserrat Aguirre on 10-16-2024 Immature granulocytes/100 WBC (Bld) 0.700 % 0.0-0.9 [facility] Comment on above: IG% - Immature Granu locytes (promyelocytes, myelocytes and metamyelocytes) > 1% indicates that a LEFT SHIFT is Present. Laboratory - Chemistry and C hemistry - challengeOrdered By: Gabi Powers on 10-16-2024 Glucose Ql (U) Negative [facility] Laboratory - UrinalysisOrder ed By: Gabi Powers on 10-16-2024 Protein Ql (U) Negative [facility] MCV (mean corpuscular volume ) determinationOrdered By: Monserrat Aguirre on 10-16-2024 MCV (RBC) [Entitic vol] 93.8 fL 81-99 [facility] Mean corpuscular hemoglobin (MCH) determinationOrdered By: Monserrat Aguirre on 10-16-2024 MCH (RBC) [Entitic mass] 30.4 pg 27.0-32.0 [facility] Mean corpuscular hemoglobin concentration (MCHC) determinationOrdered By: Monserrat Aguirre on 10-16-2024 MCHC (RBC) [Mass/Vol] 32.4 g/dL 32-36 [facility] Mean platelet volume determi nationOrdered By: Monserrat Aguirre on 10-16-2024 Platelet mean volume (Bld) [Entitic vol] 10.8 fL 6.2-12.0 [facility] Monocyte percentageOrdered B y: Monserrat Aguirre on 10-16-2024 Monocytes/100 WBC (Bld) 5.1 % 0-10 [facility] Neutrophil percentageOrdered By: Monserrat Aguirre on 10-16-2024 Neutrophils/100 WBC (Bld) 80.8 % High 47-70 [facility] No Panel InformationOrdered By: Monserrat Aguirre on 10-16-2024 HIV (1&2) Antibody Non-Reactive Nonreactive [facility] Comment on above: Non-ReactiveReactive Repeatedly reactive samples must be confirmed according to CDC recommended confirmatory algorithms. The subresults for either HIVAG or AHIV can be used as an aid in the selection of the confirmation algorithm for reactive samples.Send out specimens with Reactive results to [facility] for confirmation.Order the HIV antibody detection and differentiation: #[id number] Nucleated red blood cell per centageOrdered By: Monserrat Aguirre on 10-16-2024 Nucleated RBC/100 WBC (Bld) [Ratio] 0 % 0-5 [facility] Chemical Strength Tester Office Visit Reporton 10-16-2024 Chemical Strength Tester Office Visit Report [facility] [address], [facility] [address] [place] [address] OFFICE VISIT Date of Service: 10/16/24 MR#: [id number] Acct: [id number] Name: LEONARD MESSINA JANENE Rep #: [id number] : 1990 Provider: VINCENT hurley Age/Sex: 34/F Location: [facility] Status: Signed Intake Vital Signs 08/28/24 09:33 09/25/24 10:17 10/16/24 08:21 10/16/24 08:24 Height 5 ft 4 in 5 ft 4 in 5 ft 4 in 5 ft 4 in Weight: 173 lb BMI 29.7 BP 118/72 Intake Visit Reasons: 28wk ob/glucose *rhogam Chief Complaint: 28 Week OB/glucose Mixer And Blender Required: No Is patient in pain?: No Allergies amoxicillin Allergy (Mild, Verified 10/16/24 08:20) Other Medications ???Medication ???Instructions ???Recorded ???Confirmed ???Type magnesium glycinate 100 mg (as 100 mg PO QDAY 05/16/24 10/16/24 H istory glycinate) tablet vitamins no.163-iron tab PO 05/16/24 10/16/24 History bis-gly 20 mg-folate no.10 1 mg tablet (PNV Tabs 20-1) Last Menstrual Period: 04/03/24 Zika: Zika virus screening: Negative : Yes PFSH PFSH Surgical History S/P laparoscopy Social History adopted: No household members: spouse 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 status: employed current occupation: [employer] 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 exposures/hazards: No pets and animals: [...] physical activity do you participate in: none sim/anglican: Pentecostalism seatbelt use: always do you feel safe at home: Yes additional social history: Tanvir Messina Works at [employer] History 1 Elective abortions Hx Para 0 Spontaneous abortions Hx # Term Pregnancies Ectopic pregnancies Hx # Pregnancies Multiple births # of living children HPI 28wk ob/glucose *rhogam Details: LEONARD MESSINA is a 34 year old who presents for routine OB visit. OB Visit DIEGO Calculator Estimated Delivery Date Method Current WG Current Estimate 01/08/25 LMP (Certain) 28w 0d Other Estimates 01/11/25 Ultrasound #1 27w 4d Expected Delivery Route/Plan Labor Preferences- CB/BF classes: encouraged labor support person: Tanvir labor intervention preferences: [] pain management options preferred: limited but would do epidural cut cord/dad catch: maybe : yes PP control planned: discussed discussed possible routes of delivery and associated risks: [] special requests: [] Specific Issue/Plans Covid status: [] Flu vaccine: [] Tdap vaccine: declined Rhogam: given 10/16/24 LARC form signed: yes Problem list reviewed and updated with the [...] Trace -???-???-???-???-?? ?-???-???-???-???-? ??-???-???- Negative 160 -???-???-???-???-?? ?-???-?? (more content not included)... Normal [facility] Platelet countOrdered By: Stephen Aguirre on 06-23-2025 Platelets (Bld) [#/Vol] 185 10*3/uL 150-450 [facility] RBC Auto (Bld) [#/Vol]Ordere d By: Monserrat Aguirre on 10-16-2024 RBC (Bld) [#/Vol] 3.85 10*6/uL Low 4.2-5.4 [facility] Syphilis Antibodieson 2024 Syphilis Abs Non-Reactive Normal Nonreactive [facility] Comment on above: Performed By: #### L 3890.6006, BTS, L501.0250, L100.0100, L509.8002 ####[facility] [address] [place], [address] Type AND Screenon 10-16-2024 Ab SCREEN GEL Negative Normal [facility] Comment on above: Order Comment: PN Performed By: #### L 3890.6006, BTS, L501.0250, L100.0100, L509.8002 ####[facility] [address] [place], [address] White blood cell (WBC) count Ordered By: Monserrat Aguirre on 10-16-2024 WBC (Bld) [#/Vol] 11.6 10*3/uL High 4.4-11.0 [facility] Laboratory - Chemistry and C hemistry - challengeOrdered By: Monserrat Aguirre on 09-25-2024 Glucose Ql (U) Negative [facility] Laboratory - UrinalysisOrder ed By: Monserrat Aguirre on 09-25-2024 Protein Ql (U) Negative [facility] Chemical Strength Tester Office Visit Reporton 09-25-2024 Chemical Strength Tester Office Visit Report [facility]'[address], [address] [place] [address] OFFICE VISIT Date of Service: 09/25/24 MR#: [id number] Acct: [id number] Name: LEONARD MESSINA JANENE Rep #: [id number] : 1990 Provider: KATHERIN Calderon ams Age/Sex: 34/F Location: [facility] Status: Signed Intake Vital Signs 08/03/24 10:50 08/28/24 09:33 09/25/24 10:17 Height 5 ft 4 in 5 ft 4 in 5 ft 4 in Weight: 160 lb 8 oz 165 lb 2 oz 168 lb BMI 27.5 28.3 28.8 BP 121/77 H 106/70 121/84 H Intake Visit Reasons: 25 wk ob Chief Complaint: 25wk OB Mixer And Blender Required: No Is patient in pain?: No [...] spouse 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 status: employed current occupation: [employer] 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 exposures/hazards: No pets and animals: [...] physical activity do you participate in: none sim/anglican: Pentecostalism seatbelt use: always do you feel safe at home: Yes additional social history: Tanvir Messina Works at [employer] History 1 Elective abortions Hx Para 0 [...] 09/25/24 -???-???- (more content not included)... Normal [facility] Laboratory - Chemistry and C hemistry - challengeOrdered By: Gabi Powers on 08-28-2024 Glucose Ql (U) Negative [facility] Laboratory - UrinalysisOrder ed By: Gabi Powers on 08-28-2024 Protein Ql (U) Trace [facility] Chemical Strength Tester Office Visit Reporton 08-28-2024 Chemical Strength Tester Office Visit Report [facility] [address], [address] [place] [address] OFFICE VISIT Date of Service: 08/28/24 MR#: [id number] Acct: [id number] Name: LEONARD MESSINA JANENE Rep #: [id number] : 1990 Provider: VINCENT hurley Age/Sex: 34/F Location: [facility] Status: Signed Intake Vital Signs 07/07/24 13:52 08/03/24 10:50 08/28/24 09:33 Height 5 ft 4 in 5 ft 4 in 5 ft 4 in Weight: 165 lb 2 oz BMI 28.3 BP 106/70 Intake Visit Reasons: 21wk ob Mixer And Blender Required: No Is patient in pain?: No [...] spouse 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 status: employed current occupation: [employer] 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 exposures/hazards: No pets and animals: [...] physical activity do you participate in: none sim/anglican: Pentecostalism seatbelt use: always do you feel safe at home: Yes additional social history: Tanvir Messina Works at [employer] History 1 Elective abortions Hx Para 0 [...] ROS Cons (more content not included)... Normal [facility] Laboratory - Chemistry and C hemistry - challengeOrdered By: Monserrat Aguirre on 08-03-2024 Glucose Ql (U) Negative [facility] Laboratory - UrinalysisOrder ed By: Monserrat Aguirre on 08-03-2024 Protein Ql (U) Negative [facility] [facility] Tester Office Visit Reporton 08-03-2024 Chemical Strength Tester Office Visit Report [facility] [address], [address] [place] [address] OFFICE VISIT Date of Service: 08/03/24 MR#: [id number] Acct: [id number] Name: LEONARD MESSINA Rep #: [id number] : 1990 Provider: KATHERIN Calderon ams Age/Sex: 34/F Location: [facility] [place] Status: Signed Intake Vital Signs 06/09/24 10:36 07/07/24 13:52 08/03/24 10:50 Height 5 ft 4 in 5 ft 4 in 5 ft 4 in Weight: 160 lb 8 oz BMI 27.5 BP 121/77 H Intake Visit Reasons: 17 wk ob Chief Complaint: 17wk OB Mixer And Blender Required: No Is patient in pain?: No [...] spouse 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 status: employed current occupation: [employer] 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 exposures/hazards: No pets and animals: [...] physical activity do you participate in: none sim/anglican: Pentecostalism seatbelt use: always do you feel safe at home: Yes additional social history: Tanvir Messina Works at [employer] History 1 Elective abortions Hx Para 0 [...] no ad (more content not included)... Normal [facility] - Chemistry and C hemistry - challengeOrdered By: Shameka Bronson on 07-07-2024 Glucose Ql (U) Negative [facility] - UrinalysisOrder ed By: Shameka Bronson on 07-07-2024 Protein Ql (U) Negative [facility] Chemical Strength Tester Office Visit Reporton 07-07-2024 Chemical Strength Tester Office Visit Report [facility] [address], [address] [place] [address] OFFICE VISIT Date of Service: 07/07/24 MR#: [id number] Acct: [id number] Name: LEONARD MESSINA JANENE Rep #: [id number] : 1990 Provider: Dr. Shameka jefferson MD Age/Sex: 34/F Location: [facility] Status: Signed Intake Vital Signs 07/19/23 08:28 06/09/24 10:36 07/07/24 13:52 Height 5 ft 4 in 5 ft 4 in 5 ft 4 in Weight: 154 lb 8 oz BMI 26.5 BP 133/81 H Intake Visit Reasons: 13wk OB Mixer And Blender Required: No Is patient in pain?: No [...] spouse 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 status: employed current occupation: [employer] 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 exposures/hazards: No pets and animals: [...] physical activity do you participate in: none sim/anglican: Pentecostalism seatbelt use: always do you feel safe at home: Yes additional social history: Tanvir Messina Works at [employer] History 1 Elective abortions Hx Para 0 [...] Acute Comment: (more content not included)... Normal [facility] HIV - WCHon 06-13-2024 HIV Non-Reactive Normal Nonreactive [facility] Comment on above: Performed By: #### L 3890.6005 #### [facility] [address] [place] [place], [address] Chlamydia/GC SHER aptimaon CHLAMY,NUC ACID Negative Normal Negative [facility] Comment on above: Performed By: #### M 100.2200, L7000.1800 ####[facility] [address] [place], [address] GC BY NUC ACID Negative Normal Negative [facility] Comment on above: Result Comment: Perf ormed at: =G - [facility] [address] [id number] Production Tester: Kathleen Mathews MD, Phone: [phone] Performed By: #### M 100.2200, L7000.1800 ####[facility] [address] [place], [address] Urine Cultureon 06-10-2024 URC Culture exhibits no growth. Normal [facility] Comment on above: Performed By: #### M 100.2200, L7000.1800 ####[facility] [address] [place], [address] Absolute lymphocyte countOrd ered By: Nieves Dennis on 06-09-2024 Lymphocytes Auto (Unsp spec) [#/Vol] 1.64 10*3/uL 0.83-4.51 [facility] Absolute neutrophil countOrd ered By: Nieves Dennis on 06-09-2024 Neutrophils (Bld) [#/Vol] 9.3 10*3/uL High 2.0-7.7 [facility] Automated lymphocyte count a s percentage of total leukocytesOrdered By: Nieves Dennis on 06-09-2024 Lymphocytes/100 WBC Auto (Unsp spec) 13.9 % Low 19-41 [facility] Basophil percentageOrdered B y: Nieves Dennis on 06-09-2024 Basophils/100 WBC (Bld) 0.5 % 0-1 [facility] CBC W/Diff, Automatedon 05-27 Absolute Lymph 1.64 X10 3/uL Normal 0.83-4.51 [facility] Comment on above: Performed By: #### L 100.0100, L509.4005, L3890.6300, BTS, L3890.6100, L509.8000 #### [facility] [address] [place], [address] Absolute Neut 9.3 X10 3/uL High 2.0-7.7 [facility] Comment on above: Performed By: #### L 100.0100, L509.4005, L3890.6300, BTS, L3890.6100, L509.8000 #### [facility] [address] [place], [address] Basophils/100 WBC (Bld) 0.5 % Normal 0-1 [facility] Comment on above: Performed By: #### L 100.0100, L509.4005, L3890.6300, BTS, L3890.6100, L509.8000 #### [facility] [address] [place], [address] Eosinophils/100 WBC (Bld) 0.9 % Normal 0-5 [facility] Comment on above: Performed By: #### L 100.0100, L509.4005, L3890.6300, BTS, L3890.6100, L509.8000 #### [facility] [address] [place], [address] Erythrocyte distribution width (RBC) [Ratio] 12.7 % Normal 11.6-14.6 [facility] Comment on above: Performed By: #### L 100.0100, L509.4005, L3890.6300, BTS, L3890.6100, L509.8000 #### [facility] [address] [place], [address] Hematocrit (Bld) [Volume fraction] 40.0 % Normal 37-47 [facility] Comment on above: Performed By: #### L 100.0100, L509.4005, L3890.6300, BTS, L3890.6100, L509.8000 #### [facility] [address] [place], [address] Hemoglobin (Bld) [Mass/Vol] 13.2 g/dL Normal 12.0-15.0 [facility] Comment on above: Performed By: #### L 100.0100, L509.4005, L3890.6300, BTS, L3890.6100, L509.8000 #### [facility] [address] [place], [address] IG% 0.400 Normal 0.0-0.9 [facility] Comment on above: Result Comment: IG% - Immature Granulocytes (promyelocytes, myelocytes and metamyelocytes) > 1% indicates that a LEFT SHIFT is Present. Performed By: #### L 100.0100, L509.4005, L3890.6300, BTS, L3890.6100, L509.8000 #### [facility] [address] [place], [address] Lymphocytes/100 WBC (Bld) 13.9 % Low 19-41 [facility] Comment on above: Performed By: #### L 100.0100, L509.4005, L3890.6300, BTS, L3890.6100, L509.8000 #### [facility] [address] [place], [address] MCH (RBC) [Entitic mass] 28.9 pg Normal 27.0-32.0 [facility] Comment on above: Performed By: #### L 100.0100, L509.4005, L3890.6300, BTS, L3890.6100, L509.8000 #### [facility] [address] [place], [address] MCHC (RBC) [Mass/Vol] 33.0 g/dL Normal 32-36 [facility] Comment on above: Performed By: #### L 100.0100, L509.4005, L3890.6300, BTS, L3890.6100, L509.8000 #### [facility] [address] [place], [address] MCV (RBC) [Entitic vol] 87.5 fL Normal 81-99 [facility] Comment on above: Performed By: #### L 100.0100, L509.4005, L3890.6300, BTS, L3890.6100, L509.8000 #### [facility] [address] [place], [address] Monocytes/100 WBC (Bld) 5.5 % Normal 0-10 [facility] Comment on above: Performed By: #### L 100.0100, L509.4005, L3890.6300, BTS, L3890.6100, L509.8000 #### [facility] [address] [place], [address] Neutrophils/100 WBC (Bld) 78.8 % High 47-70 [facility] Comment on above: Performed By: #### L 100.0100, L509.4005, L3890.6300, BTS, L3890.6100, L509.8000 #### [facility] [address] [place], [address] Nucleated RBC (Bld) [#/Vol] 0 10*3/uL Normal 0-5 [facility] Comment on above: Performed By: #### L 100.0100, L509.4005, L3890.6300, BTS, L3890.6100, L509.8000 #### [facility] [address] [place], [address] Platelet mean volume (Bld) [Entitic vol] 10.4 fL Normal 6.2-12.0 [facility] Comment on above: Performed By: #### L 100.0100, L509.4005, L3890.6300, BTS, L3890.6100, L509.8000 #### [facility] [address] [place], [address] Platelets (Bld) [#/Vol] 237 10*3/uL Normal 150-450 [facility] Comment on above: Performed By: #### L 100.0100, L509.4005, L3890.6300, BTS, L3890.6100, L509.8000 #### [facility] [address] [place], [address] RBC (Bld) [#/Vol] 4.57 10*6/uL Normal 4.2-5.4 [facility] Comment on above: Performed By: #### L 100.0100, L509.4005, L3890.6300, BTS, L3890.6100, L509.8000 #### [facility] [address] [place], [address] RDW SD 40.6 fl Normal 35.1-43.9 [facility] Comment on above: Performed By: #### L 100.0100, L509.4005, L3890.6300, BTS, L3890.6100, L509.8000 #### [facility] [address] [place], [address] WBC (Bld) [#/Vol] 11.8 10*3/uL High 4.4-11.0 [facility] Comment on above: Performed By: #### L 100.0100, L509.4005, L3890.6300, BTS, L3890.6100, L509.8000 #### [facility] [address] [place], [address] Chlamydia trachomatis rRNA d etection by probe and target amplification methodOrdered By: Nieves Dennis on 06-09-2024 C. trachomatis rRNA SHER+probe Ql (Unsp spec) Negative Negative [facility] Eosinophil percentageOrdered By: Nieves Dennis on 06-09-2024 Eosinophils/100 WBC (Bld) 0.9 % 0-5 [facility] Erythrocyte distribution wid th ratioOrdered By: Nieves Dennis on 06-09-2024 Erythrocyte distribution width (RBC) [Ratio] 12.7 % 11.6-14.6 [facility] Erythrocyte distribution wid th standard deviationOrdered By: Nievescristine Dennis on 06-09-2024 Erythrocyte distribution width (RBC) [Ratio] 40.6 fl 35.1-43.9 [facility] HIV 1 and HIV-2 antibody ass ay with HIV-1 p24 antigen detectionOrdered By: Nieves Dennis on 06-09-2024 HIV 1+2 Ab+HIV1 p24 Ag IA Ql Non-Reactive Nonreactive [facility] Hematocrit Auto (Bld) [Volum e fraction]Ordered By: Nieves Dennis on 06-09-2024 Hematocrit (Bld) [Volume fraction] 40.0 % 37-47 [facility] Hemoglobin measurementOrdere d By: Nieves Dennis on 06-09-2024 Hemoglobin (Bld) [Mass/Vol] 13.2 g/dL 12.0-15.0 [facility] Hepatitis B Surface Antigeno n 06-09-2024 HEP B Surf Ag Non-Reactive Normal Nonreactive [facility] Comment on above: Order Comment: Reaso n for Exam: Performed By: #### L 100.0100, L509.4005, L3890.6300, BTS, L3890.6100, L509.8000 ####[facility] [address] [place], [address] Hepatitis C Antibodyon 06-09 Hepatitis C AB Non-Reactive Normal Nonreactive [facility] Comment on above: Order Comment: Reaso n for Exam: Result Comment: Non Reactive: < 0.8 Equivocal: >/= 0.8 to < 1.0 Reactive: >/= 1.0 The CDC requires that a reactive/equivocal HCV antibody result be sent out for confirmation. HCV Quant by PCR testing. Performed By: #### L 100.0100, L509.4005, L3890.6300, BTS, L3890.6100, L509.8000 ####[facility] [address] [place], [address] Immature granulocytes/100 WB C Auto (Bld)Ordered By: Nieves Dennis on 06-09-2024 Immature granulocytes/100 WBC (Bld) 0.400 % 0.0-0.9 [facility] Comment on above: IG% - Immature Granu locytes (promyelocytes, myelocytes and metamyelocytes) > 1% indicates that a LEFT SHIFT is Present. L509.8000on 06-09-2024 Syphilis Abs Non-Reactive Normal [facility] Comment on above: Order Comment: Reaso n for Exam: Performed By: #### L 100.0100, L509.4005, L3890.6300, BTS, L3890.6100, L509.8000 ####[facility] [address] [place], [address] MCV (mean corpuscular volume ) determinationOrdered By: Nieves Dennis on 06-09-2024 MCV (RBC) [Entitic vol] 87.5 fL 81-99 [facility] Mean corpuscular hemoglobin (MCH) determinationOrdered By: Nieves Dennis on 06-09-2024 MCH (RBC) [Entitic mass] 28.9 pg 27.0-32.0 [facility] Mean corpuscular hemoglobin concentration (MCHC) determinationOrdered By: Nieves Dennis on 06-09-2024 MCHC (RBC) [Mass/Vol] 33.0 g/dL 32-36 [facility] Mean platelet volume determi nationOrdered By: Nieves Dennis on 06-09-2024 Platelet mean volume (Bld) [Entitic vol] 10.4 fL 6.2-12.0 [facility] Monocyte percentageOrdered B y: Nieves Dennis on 06-09-2024 Monocytes/100 WBC (Bld) 5.5 % 0-10 [facility] Neisseria gonorrhoeae nuclei c acid detection by amplified probe techniqueOrdered By: Nieves Dennis on 06-09-2024 N. gonorrhoeae DNA SHER+probe Ql (Unsp spec) Negative Negative [facility] Comment on above: Performed at: =G - [address] [id number] Director: Kathleen Mathews MD, Phone: [phone] Neutrophil percentageOrdered By: Nieves Dennis on 06-09-2024 Neutrophils/100 WBC (Bld) 78.8 % High 47-70 [facility] Nucleated red blood cell per centageOrdered By: Nieves Dennis on 06-09-2024 Nucleated RBC/100 WBC (Bld) [Ratio] 0 % 0-5 [facility] Chemical Strength Tester Office Visit Reporton 06-09-2024 Chemical Strength Tester Office Visit Report [facility] [address], [address] [place] [address] OFFICE VISIT Date of Service: 06/09/24 MR#: [id number] Acct: [id number] Name: LEONARD MESSINA JANENE Rep #: [id number] : 1990 Provider: Dr. 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 Normal [facility] Platelet countOrdered By: Abdirashid Dennis on 06-09-2024 Platelets (Bld) [#/Vol] 237 10*3/uL 150-450 [facility] RBC Auto (Bld) [#/Vol]Ordere d By: Nieves Dennis on 06-09-2024 RBC (Bld) [#/Vol] 4.57 10*6/uL 4.2-5.4 [facility] Rubella IgGon 06-09-2024 Rubella IgG Reactive Normal Nonreactive [facility] Comment on above: Order Comment: Reaso n for Exam: Result Comment: Anti body Results Interpretation of Immune Status Non Reactive Presumed Non-Immune Equivocal Equivocal Reactive Presumed Immune Performed By: #### L 100.0100, L509.4005, L3890.6300, BTS, L3890.6100, L509.8000 #### [facility] [address] [place], [address] Serum Treponema species anti body detectionOrdered By: Nieves Dennis on 06-09-2024 Treponema sp Ab Ql (S) Non-Reactive [facility] Type AND Screenon 06-09-2024 Ab SCREEN GEL Negative Normal [facility] Comment on above: Order Comment: PN Performed By: #### L 100.0100, L509.4005, L3890.6300, BTS, L3890.6100, L509.8000 #### [facility] [address] [place], [address] Urine cultureOrdered By: Poonam Dennis on 06-09-2024 Bacteria identified Cx Nom (U) Culture exhibits no growth. [facility] White blood cell (WBC) count Ordered By: Nieves Dennis on 06-09-2024 WBC (Bld) [#/Vol] 11.8 10*3/uL High 4.4-11.0 [facility] URINE CULTUREon 04-29-2024 Bacteria identified Cx Nom (U) URINE CULTURE, ROUTINE Mixed skin julia Normal [facility] Comment on above: Order Comment: >100, 000/mL Performed By: #### 4 [id number] #### [facility] [address] [place] [address] Cervical or vaginal specimen microscopic examination by liquid based cytology (reportOrdered By: Shameka Bronson on 07-19-2023 Cytology report Cyto stain.thin prep Doc (Cvx/Vag) Comment . [facility] Comment on above: Criteria not met, HP V Genotype not performed.Performed at: - [address] [id number] Director: Kathleen Mathews MD, Phone: [phone] at: = - [facility] [id number] Director: Kathleen Mathews MD, Phone: [phone] Cervical or vagninal specime n microscopic examination by cytology stain (reported asOrdered By: Shameka Bronson on 07-19-2023 Cytology report Cyto stain Doc (Cvx/Vag) Comment . [facility] Comment on above: The Pap smear is [...] DNA Probe+sig amp Ql (Cvx) Negative Negative [facility] Comment on above: This nucleic acid am plification test detects fourteen high-risk HPV types (16,18,31,33,35,39,45,51,52,56,58,59,66,68)without differentiation. Laboratory - CytologyOrdered By: Shameka Bronson on 07-19-2023 Exceptional Needs Teacher Cyto stain Nom (Cvx/Vag) [ID] Comment . [facility] Comment on above: Shayy Turner, Cyto technologist (ASCP) Laboratory - Miscellaneous t estsOrdered By: Shameka Bronson on 07-19-2023 Service comment (Unsp spec) [Interp] . . [facility] Thin prep Papanicolaou smear with manual screeningOrdered By: Shameka Bronson on 07-19-2023 Thin prep Papanicolaou smear with manual screening Comment . [facility] Comment on above: NEGATIVE FOR INTRAEP ITHELIAL LESION OR MALIGNANCY. This liquid based Th inPrep(R) pap test was screened withthe use of an image guided system. 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 no menstrual cycles since on continuous [...] No falls within the last year Normal [facility] Abdominal Aorta/Landy ac/IVC Ultraon 09-07-2019 [facility] Abdominal Aorta/Iliac/IVC Ultra [place] [address] and Vascular Lab Report Abdominal Aorta Iliac Ultrasound/IVC Ultrasound Patient Name: LEONARD Powell Physician: [id number] Juan J MIRANDA MD Study Date: 09/07/2019 Referring 70220 Trent Tavera MD Physician: MRN/PID: [id number] PCP: Accession/Order#: [id number] CC Report to: Date of : 1990 Technologist: Shanita Syed RVT Gender: F Technologist 2: Admission Status: Outpatient Location Performed: [facility] Diagnosis/ICD: R09.89-Other specified symptoms and signs involving the circulatory and respiratory systems Procedure/CPT: 54595 Duplex Aorta/IVC/Iliac/Byp ass Graft-43419 CONCLUSIONS: Aorta/Common Iliac Arteries/IVC: The inferior vena [...] phasic. Additional Findings: Imaging & Doppler Findings: 50234 Juan J Rincon MD Final Normal [facility] CT ABDOMEN/PELVIS Won 2018 CT ABDOMEN/PELVIS [place] [address] Patient: LEONARD MIRANDA Phone#: : 1990 Age: 28 Gender: F Pt. Type: Out Account: [id number] Location: Ordering: [facility] Exam Date: 07/14/2018/11:29 Family Phys: SHAR BIRCH Charge Code: [id number] Physician: SHAMEKA Adam Order #: [id number] DLP Dose#: PROCEDURE: CT ABDOMEN/PELVIS WITH CONTRAST COMPARISON: [facility], CT, ABDOMEN/PELVIS W CON, 09/07/2016, 8:31. [facility], CT, ABDOMEN/PELVIS W CON, 11/24/2016, 9:29. [facility], CT, ABDOMEN/PELVIS W CON, 10/01/2017, 13:23. INDICATIONS: [...] 28 Gender: F Pt. Type: Out Account: [id number] Location: Ordering: [facility]RE[facility] FAN Exam Date: 07/14/2018/11:29 Family Phys: SHAR BIRCH Charge Code: [id number] Physician: SHAMEKA BRONSON [place] Order #: [id number] [facility] Dose#: PELVIC NODES: Normal. No adenopathy. PELVIC [...] Dickson MD on 07/14/2018 at 12:42 Normal [facility] US PELVICon 07-14-[address] [address] Patient: LEONARD MIRANDA Phone#: : 1990 Age: 28 Gender: F Pt. Type: Out Account: [id number] Location: Ordering: [facility]RE[facility]AN Exam Date: 07/14/2018/8:39 Family Phys: SHAR BIRCH Charge Code: [id number] Physician: SHAMEKA BRONSON [place] Order #: [id number] DLP Dose#: PROCEDURE: PELVIC ULTRASOUND, TRANSABDOMINAL COMPARISON: [facility], PELVIC, 11/26/2016, 8:02. INDICATIONS: Vaginal Pain TECHNIQUE: [...] Dickson MD on 07/14/2018 at 9:31 Normal [facility] CT ABDOMEN/PELVIS Won 2017 CT ABDOMEN/PELVIS [place] [id number] Patient: LEONARD MIRANDA Phone#: : 1990 Age: 27 Gender: F Pt. Type: Out Account: [id number] Location: Ordering: [facility] Exam Date: 10/01/2017/13:23 Family Phys: Charge Code: [id number] Physician: [place] Order #: [id number] DLP Dose#: PROCEDURE: CT ABDOMEN/PELVIS WITH CONTRAST COMPARISON: [facility], CT, ABDOMEN/PELVIS W CON, 09/07/2016, 8:31. [facility], CT, ABDOMEN/PELVIS W CON, 11/24/2016, 9:29. INDICATIONS: [...] 27 Gender: F Pt. Type: Out Account: [id number] Location: Ordering: [facility] Exam Date: 10/01/2017/13:23 Family Phys: Charge Code: 950646 Physician: [place] Order #: [id number] DLP Dose#: URINARY BLADDER: Normal. No visible [...] Dickson MD on 10/01/2017 at 13:54 Normal [facility] Vital Signs Date Time Vital Sign Value Performing Clinician Faci lity 10-16-2024 08:24-0400 Body height 162.56 cm Shar Birch PA Work Phone: [phone] [place] [address] 10-16-2024 08:21-0400 Body mass index (BMI) [Ratio] 29.7 kg/m2 Shar Birch PA Work Phone: [phone] [place] [address] 10-16-2024 08:21-0400 Body weight 78.47 kg Shar Birch PA Work Phone: [phone])[phone] [place] [address] 10-16-2024 08:21-0400 Diastolic blood pressure 72 mm[Hg] Shar Birch PA Work Phone: 0([phone] [place] [address] 10-16-2024 08:21-0400 Systolic blood pressure 118 mm[Hg] Shar Birch PA Work Phone: [facility] 09-25-2024 10:17-0400 Body height 162.56 cm Shar Birch PA Work Phone: [facility] 09-25-2024 10:17-0400 Body mass index (BMI) [Ratio] 28.8 kg/m2 Shar Birch PA Work Phone: [facility] 09-25-2024 10:17-0400 Body weight 76.2 kg Shar Birch PA Work Phone: [facility] 09-25-2024 10:17-0400 Diastolic blood pressure 84 mm[Hg] Shar Birch PA Work Phone: [facility] 09-25-2024 10:17-0400 Systolic blood pressure 121 mm[Hg] Shar Birch PA Work Phone: [facility] 08-28-2024 09:33-0400 Body mass index (BMI) [Ratio] 28.3 kg/m2 Shar Birch PA Work Phone: [facility] 08-28-2024 09:33-0400 Body weight 74.89 kg Shar Birch PA Work Phone: [phone] [place] [address] 08-28-2024 09:33-0400 Diastolic blood pressure 70 mm[Hg] Shar Birch PA Work Phone: [phone] [place] [address] 08-28-2024 09:33-0400 Systolic blood pressure 106 mm[Hg] Shar Birch PA Work Phone: [phone] [place] [address] 08-03-2024 10:50-0400 Body mass index (BMI) [Ratio] 27.5 kg/m2 Shar Birch PA Work Phone: [phone] [place] [address] 08-03-2024 10:50-0400 Body weight 72.8 kg Shar Birch PA Work Phone: 4([phone] [place] [address] 08-03-2024 10:50-0400 Diastolic blood pressure 77 mm[Hg] Shar Birch PA Work Phone: [phone] [place] [address] 08-03-2024 10:50-0400 Systolic blood pressure 121 mm[Hg] Shar Birch PA Work Phone: [phone] [place] [address] 07-07-2024 13:52-0400 Body mass index (BMI) [Ratio] 26.5 kg/m2 Shar Birch PA Work Phone: [phone] [place] [address] 07-07-2024 13:52-0400 Body weight 70.08 kg Shar Birch PA Work Phone: [facility] 07-07-2024 13:52-0400 Diastolic blood pressure 81 mm[Hg] Shar Birch PA Work Phone: [facility] 07-07-2024 13:52-0400 Systolic blood pressure 133 mm[Hg] Shar Birch PA Work Phone: [facility] 06-09-2024 10:34-0500 Body mass index (BMI) [Ratio] 26.2 kg/m2 Shar Birch PA Work Phone: [facility] 06-09-2024 10:34-0500 Body weight 69.17 kg Shar Birch PA Work Phone: [facility] 06-09-2024 10:34-0500 Diastolic blood pressure 79 mm[Hg] Shar Birch PA Work Phone: [facility] 06-09-2024 10:34-0500 Systolic blood pressure 118 mm[Hg] Shar Birch PA Work Phone: [facility] 07-19-2023 08:28-0400 Body height 162.56 cm PA Shar Birch PA Work Phone: [facility] 07-19-2023 08:27-0400 Body mass index (BMI) [Ratio] 26.2 kg/m2 PA Shar Birch PA Work Phone: [facility] 07-19-2023 08:27-0400 Body weight 69.45 kg PA Shar Birch PA Work Phone: [facility] 07-19-2023 08:27-0400 Diastolic blood pressure 85 mm[Hg] PA Shar Birch PA Work Phone: [facility] 07-19-2023 08:27-0400 Systolic blood pressure 133 mm[Hg] PA Shar Birch PA Work Phone: [facility] Encounters Encounter Date Encounter Type Care Provider Facility Start: 10-24-2024 ambulatory Shar Birch PA Facil ity:[facility] Start: 10-16-2024 End: 10-16-2024 Patient encounter procedure Gabi KAUR -[facility] Work Phone: Start: 10-16-2024 End: 10-16-2024 ambulatory Shar Birch PA Work Phone: [facility] Work Phone: Start: 10-16-2024 End: 10-16-2024 ambulatory Monserrat Aguirre Facility:[facility] Start: 09-25-2024 End: 09-25-2024 Patient encounter procedure Monserrat Aguirre CN -[facility] Work Phone: Start: 09-25-2024 End: 09-25-2024 ambulatory Shar Birch PA Work Phone: [facility] Work Phone: Start: 08-28-2024 End: 08-28-2024 Patient encounter procedure Gabi KAUR -[facility] Work Phone: Start: 08-28-2024 End: 08-28-2024 ambulatory Shar LUNA Facility:[facility] Start: 08-15-2024 End: 08-15-2024 ambulatory MD LANIER [facility] Start: 08-03-2024 End: 08-03-2024 Patient encounter procedure Monserrat Aguirre [facility] -[facility] Work Phone: Start: 08-03-2024 End: 08-03-2024 ambulatory Monserrat Aguirre Facility:[facility] Start: 07-07-2024 End: 07-07-[address] Shameka Bronson MD -[facility] Work Phone: Start: 07-07-2024 End: 07-07-2024 ambulatory Shar LUNA Facility:[facility] Start: 06-09-2024 End: 06-09-[address] Nieves Tripp DO -[facility] Work Phone: Start: 06-09-2024 End: 06-09-2024 ambulatory Shar Birch PA Facility:[facility] Start: 06-09-2024 End: 06-09-2024 ambulatory Shar LUNA Facility:[facility] Start: 04-29-2024 End: 04-29-2024 ambulatory [facility] Start: 07-19-2023 End: 07-19-2023 ambulatory PA Shar LUNA Work Phone: [facility] Work Phone: Start: 07-19-2023 End: 07-19-2023 Patient encounter procedure JEREMY LUNA Work Phone: [facility]atory[facility] Specimen Work Phone: Start: 07-19-2023 End: 07-19-2023 Patient encounter procedure JEREMY LUNA Work Phone: [facility] Work Phone: Start: 07-14-2018 End: 07-14-2018 Patient encounter procedure FREIDA FAN [facility] Start: 10-01-2017 End: 10-01-2017 Patient encounter procedure [facility] Procedures Date Procedure Procedure Detail Performing Clinician Start: 10-16-2024 Serologic test for syphilis Shar LUNA Work Phone: Start: 06-09-2024 Urine culture Shar LUNA Work [...] Start: 01-14-2021 Psychotherapy w/teri ent 60 minutes Alley Navarro Start: 12-17-2020 Psychotherapy w/teri ent 60 minutes Alley Navarro Start: 11-28-2020 Psychiatric diagnost ic evaluation Alley Navarro Start: 09-07-2019 Follow-up visit Plan of Treatment Date Care Activity Detail Author Start: 10-16-2024 CBC W Auto Different ial panel - Blood [facility] Start: 10-16-2024 Measurement of gluco se 2 hours after glucose challenge for glucose tolerance test [facility] Start: 10-16-2024 Serologic test for syphilis [facility] Start: 10-16-2024 [facility] CBC W Auto Different ial panel - Blood [facility] Erythrocyte mean cor puscular volume determination [facility] Hematocrit [Volume F raction] of Blood [facility] Hemoglobin [Mass/volume] in Blood [facility] Leukocytes [#/volume] in Blood [facility] Mean corpuscular hem oglobin concentration determination [facility] Mean corpuscular hem oglobin determination [facility] Measurement of gluco se 2 hours after glucose challenge for glucose tolerance test [facility] Neutrophil count [facility] Neutrophil percent d ifferential count [facility] Platelets [#/volume] in Blood [facility] Red blood cell count [facility] Red cell distributio n width determination [facility] Rubella IgG measurement [facility] Serologic test for syphilis [facility] Payers Date Payer Category Payer Self-pay [id number] 2024 Unknown [id number] 1990 Unknown [id number] 2.16.84 [id number] 1990 Unknown [id number] 2.16.84 [id number] 1990 Unknown [id number] 2.16. [id number] 1990 Unknown [id number] 2.16. [id number] Unknown [id number] Unknown [id number] 2.16.8 [id number] Unknown [id number] 2.16.8 [id number] Unknown [id number] 2.16.8 [id number] Unknown [id number] 2.16.8 [id number] Unknown [id number] 2.16.8 [id number] Unknown [id number] 2.16.8 [id number] Unknown [id number] 2.16.8 [id number] Unknown [id number] 2.16.8 [id number] Unknown [id number] 2.16.8 [id number] Social History Date Type Detail Facility Start: 1990 [facility] [address] Start: 05-16-2024 Never Smoked [facility] [address] Start: 07-19-2023 [facility] Start: 1990 Sex Assigned At Female [facility] Medical Equipment Procedure Code Equipment Code Equipment Original Text Equi pment Identifier Dates Procedure Implant ([id number]) Clinical Notes 07-19-2023 to 09-25-2024 Note Date & Type Note Facility 09-25-2024 Progress note [facility] 07-07-2024 Evaluation note Diagnosis Onset Date Resolution [...] normal first acute October 16, 2024 8:13am [facility] Work Phone: [phone]) [phone] Evaluation note* Diagnosis Onset Date Resolution Status Admit Date acute June 09, 2024 10:22am S/P laparoscopy acute June 09, 2024 10:22am Supervision of normal first acute June 09, 2 025 10:22am acute July 07 1:48pm Rh [...] first acute September 25, 2024 1 0:13am [facility] Work Phone: [phone] NotePap Smear Specimen AdequacyMarch 2023 12:43pmComment.Satisfactory for evaluation. No endocervical component is identified.[facility]ACED A#[id number] Medical Specialty Hospital - CincinnatiComment on above:Satisfactory for evaluation. No endocervical component is identified. Consult note No Information to Report [facility] [address] discharge summary No Information to Report [facility] [address] Evaluation note No Information to Report [facility] [address] Evaluation note* Diagnosis Onset Date Resolution Status Encounter for routine gynecological examination noneactive [facility] Work Phone: History and physical note No Information to Report [facility] [address] procedure note No Information to Report [facility] [address] progress note No Information to Report [facility] [address] progress note Author Monserrat Aguirre [facility] Note Date/Time September 25, 2024 10:41 am [facility] [address] [place] [address], [address] [place] [address] OFFICE VISIT Date of Service: 09/25/24 MR#: [id number] Acct: [id number] Name: LEONARD MESSINA JANENE Rep #: [id number] : 1990 Provider: KATHERIN Aguirre Age/Sex: 34/F Location: [facility] Status: Signed Intake Vital Signs 08/03/24 10:50 08/28/24 09:33 09/25/24 10:17 Height 5 ft 4 in 5 ft 4 in 5 ft 4 in Weight: 160 lb 8 oz 165 lb 2 oz 168 lb BMI 27.5 28.3 28.8 BP 121/77 H 106/70 121/84 H Intake Visit Reasons: 25 wk ob Chief Complaint: 25wk OB 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 Feelin g movement. Denies concerns 09/25/24 -?-?-?-?-?-?-?-?-?-?-?-?- 25w [...] supervision of normal first in second trimester Z34. Trimester: second trimester 25 weeks gestation of Z3A.25 Weeks of gestation: 25 weeks Assessment and Plan Assessment and Plan (1) Rh negative status during : Status: Acute Qualifiers: Trimester: second trimester Qualified Code(s): O26.892 - Other specified related conditions, second trimester; Z - Unspecified blood type, Rh negative Comment: rhogam 28 wk, pp and prn bleeding (2) S/P laparoscopy: Status: Acute Comment: 2017 pelvic mass excision at [place], transvaginal repair, enterotomy repair (3) Supervision of [...] year?: No 09/25/24 1041 <Electronically signed by oMnserrat lieberman CNM> Date _ Monserrat Aguirre CNM Cosigner Signature: Date (if applicable) CC: ~ [facility] Work Phone: Reason for referral (narrative)No reason for referral information availableBlCentinela [facility] Work Phone: Summary Purpose Family History No [...] and Reason for Visit 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) Reason for Visit Encounter for routin e gynecological examination Chief Complaint Admit Date New OB, LMP 04/03/24, DIEGO 01/08/25 Februar 2024 10:22am 13wk OB July 07, 2024 [...] of normal first Ju ne 2024 10:13am Chief Complaint Admit Date 13wk [...] section and content) DATE CREATED AUTHOR [facility] DATE CREATED AUTHOR AUTHOR'S ORGANIZ ATION 09/08/2019 [facility] DATE CREATED AUTHOR AUTHOR'S ORGANIZ ATION 03/22/2020 [facility] DATE CREATED AUTHOR AUTHOR'S ORGANIZ ATION 05/06/2024 [facility] DATE CREATED AUTHOR AUTHOR'S ORGANIZ ATION 08/18/2024 [facility] DATE CREATED AUTHOR AUTHOR'S ORGANIZ ATION 10/21/2024 [facility] Care Teams (unrecognized sec tion and content) Team Status: Active Member Role Status Dates JEREMY Handy Primary Care Provider Active Team Status: Inactive Member Role Status Dates JEREMY Handy Primary Care Provider, Referring Provider Active Dr. Shameka Bronson MD Attending Provider Active Team Status: Inactive Member Role Status Dates JEREMY Handy Primary Care Provider Active Dr. Shameka Bronson MD Attending Provider, Referr ing Provider Active Team Status: Inactive Member Role Status Dates JEREMY Handy Primary Care Provider Active Start: June 09, 2024 End: June 09, 2024 JEREMY Handy Referring Provider Active Start: June 09, 2024 End: June 09, 2024 Dr. Nieves Tripp DO Attending Provider Activ e Start: June 09, 2024 End: June 09, 2024 Team Status: Inactive Member Role Status Dates JEREMY Handy Primary Care Provider Active Start: June 09, [...] 03, 2024 End: August 03, 2024 Monserrat gAuirre CNM Attending Provider Active S tart: August 03, 2024 End: August 03, 2024 Team Status: Inactive Member Role Status Dates Shar Birch PA, PA Primary Care Provider Active Start: August 28, 2024 End: August 28, 2024 Shar Birch PA, PA Referring Provider Active Start: August 28, 2024 End: August 28, 2024 Gabi Powers NP, INBOUND CALL CENTER AGENT-C Attending Provider Active Start: August 28, 2024 End: August 28, 2024 Team Status: Inactive Member Role Status Dates Shar Birch PA, PA Primary Care Provider Active Start: September 25, 2024 End: September 25, 2024 Shar Birch PA, PA Referring Provider Active Start: September 25, 2024 End: September 25, 2024 Monserrat Aguirre CNM Attending Provider Active S tart: September 25, 2024 End: September 25, 2024 Team Status: Inactive Member Role Status Dates Shar Birch PA, PA Primary Care Provider Active Start: October 16, 2024 End: October 16, 2024 Shar Birch PA, PA Referring Provider Active Start: October 16, 2024 End: October 16, 2024 Gabi Powers INBOUND CALL CENTER AGENT, INBOUND CALL CENTER AGENT-C Attending Provider Active Start: October 16, 2024 End: October 16, 2024 Team Status: Active Member Role Status Dates Shar Birch PA, PA Primary Care Provider Active Start: October 16, 2024 Monserrat Aguirre CNM Attending Provider Active S tart: October 16, 2024 Monserrat Aguirre CNM Referring Provider Active S tart: October 16, 2024 Team Status: Active Member Role/Relationship Status Dates Shar Birch PA, PA Primary Care Provider Active Team Status: Inactive Member Role/Relationship Status Dates Shar Birch PA, PA Primary Care Provider Active Start: July 07, 2024 End: July 07, 2024 Shar Birch PA, PA Referring Provider Active Start: July 07, 2024 End: July 07, 2024 Dr. Shameka Bronson MD Attending Provider Active Start: July 07, 2024 End: July 07, 2024 Team Status: Inactive Member Role/Relationship Status Dates Shar Birch PA, PA Primary Care Provider Active Start: August 03, 2024 End: August 03, 2024 Shar Birch PA, PA Referring Provider Active Start: August 03, 2024 End: August 03, 2024 Monserrat Aguirre CNM Attending Provider Active S tart: August 03, 2024 End: August 03, 2024 Team Status: Inactive Member Role/Relationship Status Dates Shar Birch PA, PA Primary Care Provider Active Start: August 28, 2024 End: August 28, 2024 Shar Birch PA, PA Referring Provider Active Start: August 28, 2024 End: August 28, 2024 Gabi Powers INBOUND CALL CENTER AGENT, INBOUND CALL CENTER AGENT-C Attending Provider Active Start: August 28, 2024 End: August 28, 2024 Team Status: Inactive Member Role/Relationship Status Dates Shar Birch PA, PA Primary Care Provider Active Start: September 25, 2024 End: September 25, 2024 Shar Birch PA, PA Referring Provider Active Start: September 25, 2024 End: September 25, 2024 Monserrat Aguirre CNM Attending Provider Active S tart: September 25, 2024 End: September 25, 2024 Team Status: Inactive Member Role/Relationship Status Dates Shar Birch PA, PA Primary Care Provider Active Start: October 16, 2024 End: October 16, 2024 Shar Birch PA, PA Referring Provider Active Start: October 16, 2024 End: October 16, 2024 Gabi Powers INBOUND CALL CENTER AGENT, INBOUND CALL CENTER AGENT-C Attending Provider Active Start: October 16, 2024 End: October 16, 2024 Team Status: Inactive Member Role/Relationship Status Dates JEREMY Handy Primary Care Provider Active Start: October 16, 2024 End: October 16, 2024 Monserrat Aguirre CNM Attending Provider Active S tart: October 16, 2024 End: October 16, 2024 Monserrat Aguirre CNM Referring Provider Active S tart: October 16, 2024 End: October 16, 2024 Goals (unrecognized section and [...] BE BASED ON THE PRIMARY CLINICAL RECORDS. [facility] [employer] provides no warranty or guarantee of the accuracy or completeness of information in this document.
[2024-10-24 07:28] LABS: Glucose GTT-Gestation. Fasting 93 mg/dL (<105)
[2024-10-24 09:37] LABS: Glucose GTT-Gestational 1 Hr 155 mg/dL (<190)
[2024-10-24 10:19] LABS: Glucose GTT-Gestational 2 Hr 183 mg/dL (<165)
[2024-10-24 11:56] LABS: Glucose GTT-Gestational 3 Hr 158 L (<145)
== END | disposition home or self-care (01) ==
PROVIDERS: PCP Physician Assistant; Referring Provider Advanced Practice Midwife; Visit Provider Advanced Practice Midwife
DX: O99.810 Abnormal glucose complicating pregnancy (principal); Z3A.00 Weeks of gestation of pregnancy not specified
CPT/HCPCS: 36415; 82951; 82952

== ENCOUNTER 2024-11-01 07:52 | Outpatient (RCR) | payer OTHER, SELFPAY | END 2024-11-23 23:59 | LOC: NS 07:52 | PROVIDERS: PCP Physician Assistant; Referring Provider Advanced Practice Midwife; Visit Provider Advanced Practice Midwife | DX: Z71.3 Dietary counseling and surveillance (principal); O24.419 Gestational diabetes mellitus in pregnancy, unspecified control | CPT/HCPCS: 97802 ==

== ENCOUNTER → 2024-12-11 | Outpatient (CLI) | payer OTHER, SELFPAY ==
--- NOTE | 2024-12-11 11:49 | US_ITS ---
PROCEDURE: OB LIMITED WITH BIOMETRICS 12/11/2024 REASON FOR EXAM: GROWTH TECHNIQUE: OB LIMITED WITH BIOMETRICS COMPARISON: None FINDINGS Number: 1 Position: Vertex Placental Position: Posterior and not low-lying. Placental Abnormalities: No evidence of previa. DIMENSIONS: Biparietal Diameter: 9.1 cm: 37 weeks and 0 days: 83rd percentile. Head Circumference: 32.6 cm: 36 weeks and 6 days: 41 percentile/ Abdominal Circumference: 32 cm: 35 weeks and 6 days: 52nd percentile/ Femur Length: 7 cm: 36 weeks and 0 days: 45th percentile/ ESTIMATED WEIGHT: 2883 g plus/minus 402 g ESTIMATED WEIGHT PERCENTILE (24+ weeks): 57th ESTIMATED GESTATIONAL AGE: Baseline: 36 weeks and 0 days By Ultrasound: 36 weeks and 4 days ESTIMATED DATE OF DELIVERY: Baseline: January 08, 2025 By Ultrasound: January 04, 2025 BIOPHYSICAL ASSESSMENT: Amniotic Fluid Volume: 3 cm Amniotic Fluid Index: 7.1 cm (8-24 cm normal range) Cardiac Motion: 167 beats per minute (average) Trunk and Limb Motion: Present. MATERNAL ANATOMY: Adnexa: Neither maternal ovary is successfully identified. US/OB Limited With Biometrics IMPRESSION: Single live intrauterine gestation with a mean gestational age of 36 weeks and 4 days. The amniotic fluid index is lower limits of normal. Reading Location: [id number]
== END | disposition home or self-care (01) ==
LOC: US 11:46
PROVIDERS: PCP Physician Assistant; Referring Provider Nurse Practitioner Women's Health; Visit Provider Nurse Practitioner Women's Health
DX: O24.419 Gestational diabetes mellitus in pregnancy, unspecified control (principal); Z3A.00 Weeks of gestation of pregnancy not specified
CPT/HCPCS: 76816

== ENCOUNTER → 2024-12-11 | Outpatient (CLI) | payer OTHER, SELFPAY ==
--- OUTSIDE RECORDS SUMMARY | 2024-12-11 22:22 | XMS RPT_ITS | CCD ---
Author Organization [facility] CliniSyor Care Team Providers Care Acquisition Cost Estimator Name Role Phone SHAR BIRCH Admitting Unavailable SHAR BIRCH Attending Unavailable SHAR BIRCH Primary Care Unavailable SHAR BIRCH Consulting Unavailable PROVIDER, UNKNOWN Consulting Unavailable FREIDA FAN Admitting Unavailable FREIDA FAN Attending Unavailable FREIDA FAN Primary Care Unavailable SHAR BIRCH Consulting Unavailable SHAMEKA BRONSON MD Referring Unavailab le PROVIDER, UNKNOWN Consulting Unavailable Alley Navarro Unavailable JEREMY Aleman Primary Care Provider JEREMY Aleman Shar Referring Provider Dr. Shameka Bronson Attending Provider ZOË APONTE Attending Unavailable YOLANDE PRIMARY MD FLIP Primary Care Unavailable TRICE JONES Attending Unavailable SHAMEKA BRONSON Referring Unavailabl e Shar Aleman Primary Care Provider Shar Aleman Referring Provider Dr. Nieves Tripp DO Attending Provider Dr. Nieves Tripp DO Referring Provider Dr. Shameka Bronson MD Attending Provider [phone] Monserrat Aguirre CNM Attending Provider Gabi Clifford Attending Provider Shar Aleman Primary Care Provider Savannah Alemanissa Referring Provider Monserrat Aguirre CNM Referring Provider [phone] Shar Aleman Primary Care Provider Savannah Alemanissa Referring Provider Jignesh RENDON, Dr. Myles Attending Provider Birch PA, Shar Primary Care Unavailable Monserrat Aguirre Referring Unavailable Monserrat Aguirre Attending Unavailable Birch PA, Shar Primary Care Unavailable Monserrat Aguirre Referring Unavailable Monserrat Aguirre Attending Unavailable Birch PA, Shar Primary Care Unavailable Monserrat Aguirre Referring Unavailable Monserrat Aguirre Attending Unavailable Birch PA, Shar Referring Unavailable Birch PA, Shar Primary Care Unavailable Gabi Powers Attending Unavailable Birch PA, Shar Primary Care Unavailable Birch PA, Shar Referring Unavailable Nieves Tripp Attending Unavailabl e Birch PA, Shar Primary Care Unavailable Birch PA, Shar Referring Unavailable Shameka Bronson Attending Unavailable Birch PA, Shar Primary Care Unavailable Birch PA, Shar Referring Unavailable PriyaGabi narayan Attending Unavailable Birch PA, Shra Primary Care Unavailable Birch PA, Shar Referring Unavailable Monserrat Aguirre Attending Unavailable Birch PA, Shar Primary Care Unavailable Birch PA, Shar Referring Unavailable Gabi Powers Attending Unavailable Birch PA, Shar Primary Care Unavailable Birch PA, Shar Referring Unavailable Monserrat Aguirre Attending Unavailable Birch PA, Shar Primary Care Unavailable Birch PA, Shar Referring Unavailable Monserrat Aguirre Attending Unavailable Birch PA, Shar Primary Care Unavailable Birch PA, Shar Referring Unavailable Monserrat Aguirre Attending Unavailable Birch PA, Shar Referring Unavailable Birch PA, Shar Primary Care Unavailable Shameka Bronson Attending Unavailable Birch PA, Shar Primary Care Unavailable Monserrat Aguirre Referring Unavailable Monserrat Aguirre Attending Unavailable Birch PA, Shar Primary Care Unavailable Gabi Powers Referring Unavailable Gabi Powers Attending Unavailable Nieves Tripp Attending Unavailabl e Birch PA, Shar Primary Care Unavailable Vande Jeannie Nieves Referring Unavailabl e Birch PA, Shar Primary Care Provider [phone] Birch PA, Shar Referring Provider [phone] Monserrat Aguirre CNM Attending Provider Allergies Allergy Classification Reported Allergen(s) Allergy Type Date of Onset Reaction(s) Facility (1 source) Amoxicillin Drug Allergy [facility] Repository (10 sources) Amoxicillin Drug Allergy 07-19-2023 Other [facility] (1 source) Amoxicillin Drug Allergy 11-27-2024 [facility] Repository Medications Current Medications Medication Drug Class(es) Dates Sig (Normalized) Sig (Original) Blood-Glucose Meter misc (6 sources) Start: 10-25-2024 Blood-Glucose Meter misc Active 0 .ROUTE .MEDSUPPLY 1 0 October 25, 2024 12:00am As directed Iron (9 sources) Start: 05-16-2024 Pnv No.003-Tsni-Ygehrj No.10 (Pnv Tabs 20-1) 20 mg iron- 1 mg tablet Active {tbl} PO May 16, 2024 1:00am magnesium glycinate 100 mg oral tablet (9 sources) Start: 05-16-2024 take 1 tablet by mouth once daily Magnesium Glycinate 100 mg tablet Active 100 mg PO daily May 16, 2024 1:00am [place] (Nk) (1 source) Start: 07-19-2023 [place] (Nk) Active July 19, 2023 12:00am Completed/Discontinued Medications Medication Drug Class(es) Dates Sig (Normalized) Sig (Original) DULoxetine 30 mg delayed release oral capsule (10 sources) Serotonin and Norepinephrine Reuptake Inhibitor Start: 08-01-2018 End: 06-01-2019 take 1 capsule by mouth once daily Duloxetine (Cymbalta) 30 mg capsule,delayed release(DR/EC) Discontinued 30 mg PO DAILY 30 August 01, 2018 12:00am June 01, 2019 9:04am Norgestimate-Ethi nyl Estradiol (20 sources) Progestin, Estrogen Start: 07-14-2021 End: 07-16-2022 take 1 tablet by mouth once daily Norgestimate-Ethin yl Estradiol (Sprintec (28)) 0.25-35 mg-mcg tablet Discontinued 1 {tbl} PO DAILY 84 4 July 14, 2021 8:54am July 16, 2022 [...] tablet Discontinued 1 TABLET PO DAILY 84 July 14, 2021 8:54am July 16, 2022 3:00pm Only take active pills, discard placebo Start: 09-24-2020 End: 07-14-2021 take 1 tablet by mouth once daily Norgestimate-Ethinyl Estradiol (Sprintec (28)) 0.25-35 mg-mcg tablet Discontinued 1 {tbl} PO DAILY 84 September 24, 2020 8:28am July 14, 2021 8:55am Only take active pills, discard placebo Start: 09-24-2020 End: 07-14-2021 take 1 tablet by mouth once daily Norgestimate-Ethinyl Estradiol (Sprintec (28)) 0.25-35 mg-mcg tablet Discontinued 1 {tbl} PO DAILY 84 September 24, 2020 8:28am [...] tablet Discontinued 1 TABLET PO DAILY 84 January 03, 2020 8:48am September 24, 2020 8:28am Only take active pills, discard placebo Start: 03-17-2019 End: 01-03-2020 take 1 tablet by mouth once daily Norgestimate-Ethinyl Estradiol (Sprintec (28)) 0.25-35 mg-mcg tablet Discontinued 1 {tbl} PO DAILY 84 3 March 17, 2019 5:46pm January 03, 2020 [...] tablet Discontinued 1 TABLET PO DAILY 84 March 17, 2019 5:46pm [...] tablet Discontinued 1 TABLET PO DAILY 84 February 22, 2019 4:04pm [...] Problem Date Documented Date Episodic/Chronic Abdominal pain (10 sources) Chronic pelvic pain of female; Translations: [Pelvic and perineal pain] 07-16-2022 Episodic Comment on above: s/p PFPT Administrative/social admission (2 sources) Dietary counseling and surveillance; Translations: [Dietary counseling and surveillance] Onset: 11-24-2024 Episodic Anxiety disorders (4 sources) Anxiety disorder; Translations: [Anxiety disorder, unspecified] Onset: 11-28-2020 11-28-2020 Chronic Diabetes or abnormal glucose tolerance complicating ; childbirth; or the puerperium (20 sources) Abnormal glucose level; Translations: [Abnormal glucose complicating ] Onset: 10-26-2024 10-16-2024 Episodic Comment on above: start testing QID an d nutrition consult start testing QID an d nutrition consult, 36 wk growth US Genitourinary symptoms and ill-defined conditions (1 source) Unspecified symptoms and signs involving the genitourinary system; Translations: [Unspecified symptoms and signs involving the genitourinary system] Onset: 04-29-2024 Episodic Other complications of (20 sources) RhD negative; Translations: [Other specified related conditions, unspecified trimester] 08-28-2024 Episodic Comment on above: rhogam 28 wk, pp and prn bleeding rhogam 28 wk, pp and prn bleeding, Given 10/16/24 Other complications of (6 sources) Pruritic urticarial papules and plaques of (PUPPP); Translations: [Pruritic urticarial papules and plaques of ] Onset: 11-27-2024 11-27-2024 Episodic Comment on above: on abdomen only, see s only after showers. Benadryl or claritan enc Other complications of (1 source) Other specified related conditions, second trimester; Translations: [Other specified related conditions, second trimester] Onset: 11-27-2024 Episodic Other female genital disorders (10 sources) Pelvic congestion syndrome; Translations: [Other specified conditions associated with female genital organs and menstrual cycle] 07-16-2022 Episodic Comment on above: resolved with physic al therapy Other and delivery including normal (20 sources) Normal ; Translations: [Encounter for supervision of normal first , unspecified trimester] Onset: 06-09-2024 08-28-2024 Episodic Comment on above: , DIEGO 01/08/25, H usband Tanvir Messina discussed NIPT & Car rier testing- Undecided, normal anatomy PRR , DIEGO 5, Tanvir Arcoszer Residual codes; unclassified (20 sources) History of laparoscopy; Translations: [Other specified postprocedural states] 07-19-2023 Episodic Comment on above: 2017 pelvic mass exc ision at [place], transvaginal repair, enterotomy repair Residual codes; unclassified (1 source) 34 weeks gestation of ; Translations: [34 weeks gestation of ] Onset: 11-27-2024 Episodic Residual codes; unclassified (1 source) Other specified postprocedural states; Translations: [Other specified postprocedural states] Onset: 11-27-2024 Episodic Residual codes; unclassified (1 source) Unspecified blood type, Rh negative; Translations: [Unspecified blood type, Rh negative] Onset: 11-27-2024 Episodic Residual codes; unclassified (1 source) 30 weeks gestation of ; Translations: [30 weeks gestation of ] Onset: 10-30-2024 Episodic Residual codes; unclassified (1 source) 25 weeks gestation of ; Translations: [25 weeks gestation of ] Onset: 09-25-2024 Episodic Urinary tract infections (1 source) Acute cystitis with hematuria; Translations: [Acute cystitis with hematuria] Onset: 04-29-2024 Episodic Past or Other Problems Problem Classification Problem Date Documented Da te Episodic/Chronic Other complications of (1 source) Other specified related conditions, unspecified trimester; Translations: [Other specified related conditions, unspecified trimester] Onset: 08-03-2024 Episodic Residual codes; unclassified (1 source) 17 weeks gestation of ; Translations: [17 weeks gestation of ] Onset: 08-03-2024 Episodic Residual codes; unclassified (1 source) 13 weeks gestation of ; Translations: [13 weeks gestation of ] Onset: 07-07-2024 Episodic Results Test Name Value Interpretation Reference Range Facility Laboratory - Chemistry and C hemistry - challengeOrdered By: Gabi Powers on 11-27-2024 Glucose Ql (U) Negative [facility] Laboratory - UrinalysisOrder ed By: Gabi Powers on 11-27-2024 Protein Ql (U) Negative [facility] Rental Counter Clerk Office Visit Reporton 11-27-2024 Rental Counter Clerk Office Visit Report [facility]'s [address], [address] [place] [address] OFFICE VISIT Date of Service: 11/27/24 MR#: [id number] Acct: [id number] Name: LEONARD MESSINA JANENE Rep #: [id number] : 1990 Provider: VINCENT hurley Age/Sex: 34/F Location: [facility] Status: Signed Intake Vital Signs 10/16/24 08:24 11/16/24 09:17 11/27/24 13:39 Height 5 ft 4 in 5 ft 4 in 5 ft 4 in Weight: 172 lb BMI 29.5 BP 112/72 Intake Visit Reasons: 34 wk ob Chief Complaint: 34 Week OB Tester Rocket Engine Required: No Is patient in pain?: No Allergies amoxicillin Allergy (Mild, Verified 11/27/24 13:39) Other Medications ???Medication ???Instructions ???Recorded ???Confirmed ???Type magnesium glycinate 100 mg (as 100 mg PO QDAY 05/16/24 11/27/24 H istory glycinate) tablet vitamins no.163-iron tab PO 05/16/24 11/27/24 History bis-gly 20 mg-folate no.10 1 mg tablet (PNV Tabs 20-1) blood sugar diagnostic (Blood #120 ea 10/25/24 11/27/24 Rx Glucose Test strips) blood-glucose meter #1 ea 10/25/24 11/27/24 Rx lancets 30 gauge (Droplet Lancets) #200 ea 10/25/24 11/27/24 Rx Last Menstrual Period: 04/03/24 Zika: Zika virus screening: Negative : No PFSH PFSH Medical History Abnormal glucose affecting Surgical History S/P laparoscopy Social History adopted: No household members: spouse 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 status: 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 OB Visit DIEGO Calculator Estimated Delivery Date Method Current WG Current Estimate 01/08/25 LMP (Certain) 34w 0d Other Estimates 01/11/25 Ultrasound #1 33w 4d Expected Delivery Route/Plan Labor Preferences- CB/BF [...] -???-???-???-???-?? ?-???-???-???-???-? ??-???-???- KW- no vb/cr amping. po (more content not included)... Normal [facility] Laboratory - Chemistry and C hemistry - challengeOrdered By: Shameka Bronson on 11-16-2024 Glucose Ql (U) Negative [facility] Laboratory - UrinalysisOrder ed By: Shameka Bronson on 11-16-2024 Protein Ql (U) Negative [facility] Rental Counter Clerk Office Visit Reporton 11-16-2024 Rental Counter Clerk Office Visit Report [facility]'s [address], [address] [place] [address] OFFICE VISIT Date of Service: 11/16/24 MR#: [id number] Acct: [id number] Name: LEONARD MESSINA JANENE Rep #: [id number] : 1990 Provider: Dr. Shameka jefferson MD Age/Sex: 34/F Location: [facility] Status: Signed Intake Vital Signs 09/25/24 10:17 11/01/24 08:32 11/16/24 09:17 Height 5 ft 4 in 5 ft 4 in 5 ft 4 in Weight: 172 lb 2 oz BMI 29.5 BP 109/75 Intake Visit Reasons: 32wk ob Tester Rocket Engine Required: No Is patient in pain?: No Allergies amoxicillin Allergy (Mild, Verified 11/16/24 09:18) Other Medications ???Medication ???Instructions ???Recorded ???Confirmed ???Type magnesium glycinate 100 mg (as 100 mg PO QDAY 05/16/24 11/16/24 H istory glycinate) tablet vitamins no.163-iron tab PO 05/16/24 11/16/24 History bis-gly 20 mg-folate no.10 1 mg tablet (PNV Tabs 20-1) blood sugar diagnostic (Blood #120 ea 10/25/24 11/16/24 Rx Glucose Test strips) blood-glucose meter #1 ea 10/25/24 11/16/24 Rx lancets 30 gauge (Droplet Lancets) #200 ea 10/25/24 11/16/24 Rx Last Menstrual Period: 04/03/24 Zika: Zika virus screening: Negative : No PFSH PFSH Medical History Abnormal glucose affecting Surgical History S/P laparoscopy Social History adopted: No household members: spouse 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 status: 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 OB Visit DIEGO Calculator Estimated Delivery Date Method Current WG Current Estimate 01/08/25 LMP (Certain) 32w 3d Other Estimates 01/11/25 Ultrasound #1 32w 0d Expected Delivery Route/Plan Labor Preferences- CB/BF [...] KW- no vb/cr amping. possible flutters. US scheduled (more content not included)... Normal [facility] Laboratory - Chemistry and C hemistry - challengeOrdered By: Monserrat Aguirre on 10-30-2024 Glucose Ql (U) Negative [facility] Laboratory - UrinalysisOrder ed By: Monserrat Aguirer on 10-30-2024 Protein Ql (U) Negative [facility] Rental Counter Clerk Office Visit Reporton 10-30-2024 Rental Counter Clerk Office Visit Report [facility]'s [address], [address] [place] [address] OFFICE VISIT Date of Service: 10/30/24 MR#: [id number] Acct: [id number] Name: LEONARD MESSINA JANENE Rep #: [id number] : 1990 Provider: KATHERIN Calderon ams Age/Sex: 34/F Location: [facility] Status: Signed Intake Vital Signs 08/28/24 09:33 10/16/24 08:24 10/30/24 08:33 Height 5 ft 4 in 5 ft 4 in 5 ft 4 in Weight: 170 lb 6 oz BMI 29.2 BP 118/75 Intake Visit Reasons: 30wk ob Chief Complaint: 30wk OB Tester Rocket Engine Required: No Is patient in pain?: No Allergies amoxicillin Allergy (Mild, Verified 10/30/24 08:31) Other Medications ???Medication ???Instructions ???Recorded ???Confirmed ???Type magnesium glycinate 100 mg (as 100 mg PO QDAY 05/16/24 10/30/24 H istory glycinate) tablet vitamins no.163-iron tab PO 05/16/24 10/30/24 History bis-gly 20 mg-folate no.10 1 mg tablet (PNV Tabs 20-1) blood sugar diagnostic (Blood #120 ea 10/25/24 10/30/24 Rx Glucose Test strips) blood-glucose meter #1 ea 10/25/24 10/30/24 Rx lancets 30 gauge (Droplet Lancets) #200 ea 10/25/24 10/30/24 Rx Last Menstrual Period: 04/03/24 PFSH PFSH Medical History Abnormal glucose affecting Surgical History S/P laparoscopy Social History adopted: No household members: spouse 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 status: 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 OB Visit DIEGO Calculator Estimated Delivery Date Method Current WG Current Estimate 01/08/25 LMP (Certain) 30w 0d Other Estimates 01/11/25 Ultrasound #1 29w 4d Expected Delivery Route/Plan Labor Preferences- CB/BF [...] US scheduled. AFP discussed and declined 08/28/24 -???- (more content not included)... Normal [facility] Gestational GTT 3HR 100gon 0 10-24-2024 GEST GTT 100gm High [facility] Comment on above: Order Comment: Y Result Comment: FAST ING 93 Col: 10/24/24 0657 GLUCOSE TOLERANCE TEST FOR Reference Interval GESTATIONAL DIABETES Fasting <105 mg/dL 1 hour <190 mg/dl 2 hour <165 mg/dl 3 hour <145 mg/dl 1 HR GLU 155 Col: 10/24/24 0834 2 HR GLU 183 H Col: 10/24/24 0932 3 HR GLU 158 H Col: 10/24/24 1035 Performed By: #### L 500.4710 #### [facility] Laboratory [facility] [place], [address] Quantitative serum or plasma 3 hour gestational glucose tolerance panelOrdered By: Monserrat Aguirre on 10-24-2024 Glucose tolerance 3 hours gestational panel See comment [facility] Comment on above: FASTING 93 Col: 05/20 0657GLUCOSE TOLERANCE TEST FOR Reference Interval GESTATIONAL DIABETES Fasting <105 mg/dL 1 hour <190 mg/dl 2 hour <165 mg/dl 3 hour <145 mg/dl 1 HR GLU 155 Col: 10/24/24 0834 2 HR GLU 183 H Col: 10/24/24 0932 3 HR GLU 158 H Col: 10/24/24 1035 Absolute lymphocyte countOrd ered By: Monserrat Aguirre on 10-16-2024 Lymphocytes Auto (Unsp spec) [#/Vol] 1.39 10*3/uL 0.83-4.51 [facility] Absolute neutrophil countOrd ered By: Monserrat Aguirre on 10-16-2024 Neutrophils (Bld) [#/Vol] 9.4 10*3/uL High 2.0-7.7 [facility] Automated lymphocyte count a s percentage of total leukocytesOrdered By: Monserrat Aguirre on 10-16-2024 Lymphocytes/100 WBC Auto (Unsp spec) 12.0 % Low 19-41 [facility] Basophil percentageOrdered B y: Monserrat Aguirre on 10-16-2024 Basophils/100 WBC (Bld) 0.3 % 0-1 [facility] CBC W/Diff, Automatedon 09-25 Absolute Lymph 1.39 X10 3/uL Normal 0.83-4.51 [facility] Comment on above: Performed By: #### L 3890.6006, BTS, L501.0250, L100.0100, L509.8002 #### [facility] [address] [place], [address] Absolute Neut 9.4 X10 3/uL High 2.0-7.7 [facility] Comment on above: Performed By: #### L 3890.6006, BTS, L501.0250, L100.0100, L509.8002 #### [facility] [address] [place], [address] Basophils/100 WBC (Bld) 0.3 % Normal 0-1 [facility] Comment on above: Performed By: #### L 3890.6006, BTS, L501.0250, L100.0100, L509.8002 #### [facility] [address] [place], [address] Eosinophils/100 WBC (Bld) 1.1 % Normal 0-5 [facility] Comment on above: Performed By: #### L 3890.6006, BTS, L501.0250, L100.0100, L509.8002 #### [facility] [address] [place], [address] Erythrocyte distribution width (RBC) [Ratio] 13.6 % Normal 11.6-14.6 [facility] Comment on above: Performed By: #### L 3890.6006, BTS, L501.0250, L100.0100, L509.8002 #### [facility] [address] [place], [address] Hematocrit (Bld) [Volume fraction] 36.1 % Low 37-47 [facility] Comment on above: Performed By: #### L 3890.6006, BTS, L501.0250, L100.0100, L509.8002 #### [facility] [address] [place], [address] Hemoglobin (Bld) [Mass/Vol] 11.7 g/dL Low 12.0-15.0 [facility] Comment on above: Performed By: #### L 3890.6006, BTS, L501.0250, L100.0100, L509.8002 #### [facility] [address] [place], [address] IG% 0.700 Normal 0.0-0.9 [facility] Comment on above: Result Comment: IG% - Immature Granulocytes (promyelocytes, myelocytes and metamyelocytes) > 1% indicates that a LEFT SHIFT is Present. Performed By: #### L 3890.6006, BTS, L501.0250, L100.0100, L509.8002 #### [facility] [address] [place], [address] Lymphocytes/100 WBC (Bld) 12.0 % Low 19-41 [facility] Comment on above: Performed By: #### L 3890.6006, BTS, L501.0250, L100.0100, L509.8002 #### [facility] [address] [place], [address] MCH (RBC) [Entitic mass] 30.4 pg Normal 27.0-32.0 [facility] Comment on above: Performed By: #### L 3890.6006, BTS, L501.0250, L100.0100, L509.8002 #### [facility] [address] [place], [address] MCHC (RBC) [Mass/Vol] 32.4 g/dL Normal 32-36 [facility] Comment on above: Performed By: #### L 3890.6006, BTS, L501.0250, L100.0100, L509.8002 #### [facility] [address] [place], [address] MCV (RBC) [Entitic vol] 93.8 fL Normal 81-99 [facility] Comment on above: Performed By: #### L 3890.6006, BTS, L501.0250, L100.0100, L509.8002 #### [facility] [address] [place], [address] Monocytes/100 WBC (Bld) 5.1 % Normal 0-10 [facility] Comment on above: Performed By: #### L 3890.6006, BTS, L501.0250, L100.0100, L509.8002 #### [facility] [address] [place], [address] Neutrophils/100 WBC (Bld) 80.8 % High 47-70 [facility] Comment on above: Performed By: #### L 3890.6006, BTS, L501.0250, L100.0100, L509.8002 #### [facility] [address] [place], [address] Nucleated RBC (Bld) [#/Vol] 0 10*3/uL Normal 0-5 [facility] Comment on above: Performed By: #### L 3890.6006, BTS, L501.0250, L100.0100, L509.8002 #### [facility] [address] [place], [address] Platelet mean volume (Bld) [Entitic vol] 10.8 fL Normal 6.2-12.0 [facility] Comment on above: Performed By: #### L 3890.6006, BTS, L501.0250, L100.0100, L509.8002 #### [facility] [address] [place], [address] Platelets (Bld) [#/Vol] 185 10*3/uL Normal 150-450 [facility] Comment on above: Performed By: #### L 3890.6006, BTS, L501.0250, L100.0100, L509.8002 #### [facility] [address] [place], [address] RBC (Bld) [#/Vol] 3.85 10*6/uL Low 4.2-5.[address] [facility] Comment on above: Performed By: #### L 3890.6006, BTS, L501.0250, L100.0100, L509.8002 #### [facility] [address] [place], [address] RDW SD 46.2 fl High 35.1-43.9 [facility] Comment on above: Performed By: #### L 3890.6006, BTS, L501.0250, L100.0100, L509.8002 #### [facility] [address] [place], [address] WBC (Bld) [#/Vol] 11.6 10*3/uL High 4.4-11.[address] [facility] Comment on above: Performed By: #### L 3890.6006, BTS, L501.0250, L100.0100, L509.8002 #### [facility] [address] [place], [address] Eosinophil percentageOrdered By: Monserrat Aguirre on 10-16-2024 Eosinophils/100 WBC (Bld) 1.1 % 0-5 [facility] Erythrocyte distribution wid th ratioOrdered By: Monserrat Aguirre on 10-16-2024 Erythrocyte distribution width (RBC) [Ratio] 13.6 % 11.6-14.6 [facility] Erythrocyte distribution wid th standard deviationOrdered By: Monserrat Aguirre on 10-16-2024 Erythrocyte distribution width (RBC) [Ratio] 46.2 fl High 35.1-43.9 [facility] Glucose Challenge Gest 1H 50 nicky 10-16-2024 GLU GEST 50g 1H 149 mg/dL High 70-140 [facility] Comment on above: Performed By: #### L 3890.6006, BTS, L501.0250, L100.0100, L509.8002 #### [facility] [address] [place], [place], [id number] Glucose measurement at 2 daphney rs post-dose gestational glucose tolerance testOrdered By: Monserrat Aguirre on 10-16-2024 Glucose [Mass/Vol] 149 mg/dL High 70-140 [facility] HIVon 10-16-2024 HIV Non-Reactive Normal Nonreactive [facility] Comment on above: Result Comment: Non- Reactive Reactive Repeatedly reactive samples must be confirmed according to CDC recommended confirmatory algorithms. The subresults for either HIVAG or AHIV can be used as an aid in the selection of the confirmation algorithm for reactive samples. Send out specimens with Reactive results to [facility] for confirmation. Order the HIV antibody detection and differentiation: lc#[id number] Performed By: #### L 3890.6006, BTS, L501.0250, L100.0100, L509.8002 #### [facility] [address] [place], [place], [id number] Hematocrit Auto (Bld) [Volum e fraction]Ordered By: Monserrat Aguirre on 10-16-2024 Hematocrit (Bld) [Volume fraction] 36.1 % Low 37-47 [facility] Hemoglobin measurementOrdere d By: Monserrat Aguirre on 10-16-2024 Hemoglobin (Bld) [Mass/Vol] 11.7 g/dL Low 12.0-15.0 [facility] Immature granulocytes/100 WB C Auto (Bld)Ordered By: Monserrat Aguirre on 10-16-2024 Immature granulocytes/100 WBC (Bld) 0.700 % 0.0-0.9 [facility] Comment on above: IG% - Immature Granu locytes (promyelocytes, myelocytes and metamyelocytes) > 1% indicates that a LEFT SHIFT is Present. Laboratory - Chemistry and C hemistry - challengeOrdered By: Gabi Powers on 10-16-2024 Glucose Ql (U) Negative [facility] - UrinalysisOrder ed By: Gabi Powers on 10-16-2024 Protein Ql (U) Negative [facility] MCV (mean corpuscular volume ) determinationOrdered By: Monserrat Aguirre on 10-16-2024 MCV (RBC) [Entitic vol] 93.8 fL 81-99 [facility] Mean corpuscular hemoglobin (MCH) determinationOrdered By: Monserrat Aguirre on 10-16-2024 MCH (RBC) [Entitic mass] 30.4 pg 27.0-32.0 [facility] Mean corpuscular hemoglobin concentration (MCHC) determinationOrdered By: Monserrat Aguirre on 10-16-2024 MCHC (RBC) [Mass/Vol] 32.4 g/dL 32-36 [facility] Mean platelet volume determi nationOrdered By: Monserrat Aguirre on 10-16-2024 Platelet mean volume (Bld) [Entitic vol] 10.8 fL 6.2-12.0 [facility] Monocyte percentageOrdered B y: Monserrat Aguirre on 10-16-2024 Monocytes/100 WBC (Bld) 5.1 % 0-10 [facility] Neutrophil percentageOrdered By: Monserrat Aguirre on 10-16-2024 Neutrophils/100 WBC (Bld) 80.8 % High 47-70 [facility] No Panel InformationOrdered By: Monserrat Aguirre on 10-16-2024 HIV (1&2) Antibody Non-Reactive Nonreactive [facility] Comment on above: Non-ReactiveReactive Repeatedly reactive samples must be confirmed according to CDC recommended confirmatory algorithms. The subresults for either HIVAG or AHIV can be used as an aid in the selection of the confirmation algorithm for reactive samples.Send out specimens with Reactive results to [facility] for confirmation.Order the HIV antibody detection and differentiation: #[id number] Nucleated red blood cell per centageOrdered By: Monserrat Aguirre on 10-16-2024 Nucleated RBC/100 WBC (Bld) [Ratio] 0 % 0-5 [facility] Rental Counter Clerk Office Visit Reporton 10-16-2024 Rental Counter Clerk Office Visit Report [facility]'s [address], [address] [place] [address] OFFICE VISIT Date of Service: 10/16/24 MR#: [id number] Acct: [id number] Name: LEONARD MESSINA JANENE Rep #: [id number] : 1990 Provider: VINCENT hurley Age/Sex: 34/F Location: [facility] Status: Signed Intake Vital Signs 08/28/24 09:33 09/25/24 10:17 10/16/24 08:21 10/16/24 08:24 Height 5 ft 4 in 5 ft 4 in 5 ft 4 in 5 ft 4 in Weight: 173 lb BMI 29.7 BP 118/72 Intake Visit Reasons: 28wk ob/glucose *rhogam Chief Complaint: 28 Week OB/glucose Tester Rocket Engine Required: No Is patient in pain?: No [...] spouse 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 status: employed 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 ?-???-?? (more content not included)... Normal [facility] Platelet countOrdered By: Stephen Aguirre on 10-16-2024 Platelets (Bld) [#/Vol] 185 10*3/uL 150-450 [facility] RBC Auto (Bld) [#/Vol]Ordere d By: Monserrat Aguirre on 10-16-2024 RBC (Bld) [#/Vol] 3.85 10*6/uL Low 4.2-5.[address] [facility] Syphilis Antibodieson 2024 Syphilis Abs Non-Reactive Normal Nonreactive [facility] Comment on above: Performed By: #### L 3890.6006, BTS, L501.0250, L100.0100, L509.8002 #### [facility] [address] [place], [address] Type AND Screenon 10-16-2024 Ab SCREEN GEL Negative Normal [facility] Comment on above: Order Comment: PN Performed By: #### L 3890.6006, BTS, L501.0250, L100.0100, L509.8002 #### [facility] [address] [place], [address] White blood cell (WBC) count Ordered By: Monserrat Aguirre on 10-16-2024 WBC (Bld) [#/Vol] 11.6 10*3/uL High 4.4-11.[address] [facility] Laboratory - Chemistry and C hemistry - challengeOrdered By: Monserrat Aguirre on 09-25-2024 Glucose Ql (U) Negative [facility] - UrinalysisOrder ed By: Monserrat Aguirre on 09-25-2024 Protein Ql (U) Negative [facility] Rental Counter Clerk Office Visit Reporton 09-25-2024 Rental Counter Clerk Office Visit Report [facility]'[address], [address] [place] [address] OFFICE VISIT Date of Service: 09/25/24 MR#: [id number] Acct: [id number] Name: LEONARD MESSINA JANENE Rep #: [id number] : 1990 Provider: KATHERIN Calderon ams Age/Sex: 34/F Location: [facility] Status: Signed Intake Vital Signs 08/03/24 10:50 08/28/24 09:33 09/25/24 10:17 Height 5 ft 4 in 5 ft 4 in 5 ft 4 in Weight: 160 lb 8 oz 165 lb 2 oz 168 lb BMI 27.5 28.3 28.8 BP 121/77 H 106/70 121/84 H Intake Visit Reasons: 25 wk ob Chief Complaint: 25wk OB Tester Rocket Engine Required: No Is patient in pain?: No [...] spouse 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 status: employed 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 ??-???-???- Negative 160 -???-???-???-???-?? ?-???-???-???-???-? ??-???-???- -No VB. Fe eling movement. Denies concerns 09/25/24 -???-???- (more content not included)... Normal [facility] Laboratory - Chemistry and C hemistry - challengeOrdered By: Gabi Powers on 08-28-2024 Glucose Ql (U) Negative [facility] - UrinalysisOrder ed By: Gabialma Powers on 08-28-2024 Protein Ql (U) Trace [facility] Rental Counter Clerk Office Visit Reporton 08-28-2024 Rental Counter Clerk Office Visit Report [facility]'s [address], [address] [place] [address] OFFICE VISIT Date of Service: 08/28/24 MR#: [id number] Acct: [id number] Name: LEONARD MESSINA JANENE Rep #: [id number] : 1990 Provider: VINCENT hurley Age/Sex: 34/F Location: [facility] Status: Signed Intake Vital Signs 07/07/24 13:52 08/03/24 10:50 08/28/24 09:33 Height 5 ft 4 in 5 ft 4 in 5 ft 4 in Weight: 165 lb 2 oz BMI 28.3 BP 106/70 Intake Visit Reasons: 21wk ob Tester Rocket Engine Required: No Is patient in pain?: No [...] spouse 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 status: employed 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 Normal [facility] - Chemistry and C hemistry - challengeOrdered By: Monserrat Aguirre on 08-03-2024 Glucose Ql (U) Negative [facility] - UrinalysisOrder ed By: Monserrat Aguirre on 08-03-2024 Protein Ql (U) Negative [facility] Rental Counter Clerk Office Visit Reporton 08-03-2024 Rental Counter Clerk Office Visit Report [facility] [address], [address] [place] [address] OFFICE VISIT Date of Service: 08/03/24 MR#: [id number] Acct: [id number] Name: LEONARD MESSINA JANENE Rep #: [id number] : 1990 Provider: KATHERIN Calderon ams Age/Sex: 34/F Location: [facility] Status: Signed Intake Vital Signs 06/09/24 10:36 07/07/24 13:52 08/03/24 10:50 Height 5 ft 4 in 5 ft 4 in 5 ft 4 in Weight: 160 lb 8 oz BMI 27.5 BP 121/77 H Intake Visit Reasons: 17 wk ob Chief Complaint: 17wk OB Tester Rocket Engine Required: No Is patient in pain?: No [...] spouse 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 status: employed 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 Normal [facility] - Chemistry and C hemistry - challengeOrdered By: Shameka Bronson on 07-07-2024 Glucose Ql (U) Negative [facility] - UrinalysisOrder ed By: Shameka Bronson on 07-07-2024 Protein Ql (U) Negative [facility] Rental Counter Clerk Office Visit Reporton 07-07-2024 Rental Counter Clerk Office Visit Report [facility] [address], [address] [place] [address] OFFICE VISIT Date of Service: 07/07/24 MR#: [id number] Acct: [id number] Name: LEONARD MESSINA JANENE Rep #: [id number] : 1990 Provider: Dr. 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 Normal [facility] HIV - WCHon 06-13-2024 HIV Non-Reactive Normal Nonreactive [facility] Comment on above: Performed By: #### M 100.2200, L7000.1800 #### [facility] [address] [place], [address] Chlamydia/GC SHER aptimaon CHLAMY,NUC ACID Negative Normal Negative [facility] Comment on above: Performed By: #### M 100.2200, L7000.1800 #### [facility] [address] [place], [address] GC BY NUC ACID Negative Normal Negative [facility] Comment on above: Result Comment: Perf ormed at: =G - [facility] [address] [id number] Strip Feeder: Kathleen Mathews MD, Phone: [phone] Performed By: #### M 100.2200, L7000.1800 #### [facility] [address] [place], [address] Urine Cultureon 06-10-2024 URC Culture exhibits no growth. Normal [facility] Comment on above: Performed By: #### M 100.2200, L7000.1800 #### [facility] [address] [place], [address] Absolute lymphocyte countOrd ered By: Nieves Dennis on 06-09-2024 Lymphocytes Auto (Unsp spec) [#/Vol] 1.64 10*3/uL 0.83-4.51 [facility] Absolute neutrophil countOrd ered By: Nieves Dennis on 06-09-2024 Neutrophils (Bld) [#/Vol] 9.3 10*3/uL High 2.0-7.7 [facility] Automated lymphocyte count a s percentage of total leukocytesOrdered By: Nieves Dennis on 06-09-2024 Lymphocytes/100 WBC Auto (Unsp spec) 13.9 % Low 19-41 [facility] Basophil percentageOrdered B y: Nieves Dennis on 06-09-2024 Basophils/100 WBC (Bld) 0.5 % 0-1 [facility] CBC W/Diff, Automatedon 05-27 Absolute Lymph 1.64 X10 3/uL Normal 0.83-4.51 [facility] Comment on above: Performed By: #### L 100.0100, L509.4005, L3890.6300, BTS, L3890.6100, L509.8000 #### [facility] [address] [place], [address] Absolute Neut 9.3 X10 3/uL High 2.0-7.7 [facility] Comment on above: Performed By: #### L 100.0100, L509.4005, L3890.6300, BTS, L3890.6100, L509.8000 #### [facility] [address] [place], [address] Basophils/100 WBC (Bld) 0.5 % Normal 0-1 [facility] Comment on above: Performed By: #### L 100.0100, L509.4005, L3890.6300, BTS, L3890.6100, L509.8000 #### [facility] [address] [place], [address] Eosinophils/100 WBC (Bld) 0.9 % Normal 0-5 [facility] Comment on above: Performed By: #### L 100.0100, L509.4005, L3890.6300, BTS, L3890.6100, L509.8000 #### [facility] [address] [place], [address] Erythrocyte distribution width (RBC) [Ratio] 12.7 % Normal 11.6-14.6 [facility] Comment on above: Performed By: #### L 100.0100, L509.4005, L3890.6300, BTS, L3890.6100, L509.8000 #### [facility] [address] [place], [address] Hematocrit (Bld) [Volume fraction] 40.0 % Normal 37-47 [facility] Comment on above: Performed By: #### L 100.0100, L509.4005, L3890.6300, BTS, L3890.6100, L509.8000 #### [facility] [address] [place], [address] Hemoglobin (Bld) [Mass/Vol] 13.2 g/dL Normal 12.0-15.0 [facility] Comment on above: Performed By: #### L 100.0100, L509.4005, L3890.6300, BTS, L3890.6100, L509.8000 #### [facility] [address] [place], [address] IG% 0.400 Normal 0.0-0.9 [facility] Comment on above: Result Comment: IG% - Immature Granulocytes (promyelocytes, myelocytes and metamyelocytes) > 1% indicates that a LEFT SHIFT is Present. Performed By: #### L 100.0100, L509.4005, L3890.6300, BTS, L3890.6100, L509.8000 #### [facility] [address] [place], [address] Lymphocytes/100 WBC (Bld) 13.9 % Low 19-41 [facility] Comment on above: Performed By: #### L 100.0100, L509.4005, L3890.6300, BTS, L3890.6100, L509.8000 #### [facility] [address] [place], [address] MCH (RBC) [Entitic mass] 28.9 pg Normal 27.0-32.0 [facility] Comment on above: Performed By: #### L 100.0100, L509.4005, L3890.6300, BTS, L3890.6100, L509.8000 #### [facility] [address] [place], [address] MCHC (RBC) [Mass/Vol] 33.0 g/dL Normal 32-36 [facility] Comment on above: Performed By: #### L 100.0100, L509.4005, L3890.6300, BTS, L3890.6100, L509.8000 #### [facility] [address] [place], [address] MCV (RBC) [Entitic vol] 87.5 fL Normal 81-99 [facility] Comment on above: Performed By: #### L 100.0100, L509.4005, L3890.6300, BTS, L3890.6100, L509.8000 #### [facility] [address] [place], [address] Monocytes/100 WBC (Bld) 5.5 % Normal 0-10 [facility] Comment on above: Performed By: #### L 100.0100, L509.4005, L3890.6300, BTS, L3890.6100, L509.8000 #### [facility] [address] [place], [address] Neutrophils/100 WBC (Bld) 78.8 % High 47-70 [facility] Comment on above: Performed By: #### L 100.0100, L509.4005, L3890.6300, BTS, L3890.6100, L509.8000 #### [facility] [address] [place], [address] Nucleated RBC (Bld) [#/Vol] 0 10*3/uL Normal 0-5 [facility] Comment on above: Performed By: #### L 100.0100, L509.4005, L3890.6300, BTS, L3890.6100, L509.8000 #### [facility] [address] [place], [address] Platelet mean volume (Bld) [Entitic vol] 10.4 fL Normal 6.2-12.0 [facility] Comment on above: Performed By: #### L 100.0100, L509.4005, L3890.6300, BTS, L3890.6100, L509.8000 #### [facility] [address] [place], [address] Platelets (Bld) [#/Vol] 237 10*3/uL Normal 150-450 [facility] Comment on above: Performed By: #### L 100.0100, L509.4005, L3890.6300, BTS, L3890.6100, L509.8000 #### [facility] [address] [place], [address] RBC (Bld) [#/Vol] 4.57 10*6/uL Normal 4.2-5.[address] [facility] Comment on above: Performed By: #### L 100.0100, L509.4005, L3890.6300, BTS, L3890.6100, L509.8000 #### [facility] [address] [place], [address] RDW SD 40.6 fl Normal 35.1-43.9 [facility] Comment on above: Performed By: #### L 100.0100, L509.4005, L3890.6300, BTS, L3890.6100, L509.8000 #### [facility] [address] [place], [address] WBC (Bld) [#/Vol] 11.8 10*3/uL High 4.4-11.[address] [facility] Comment on above: Performed By: #### L 100.0100, L509.4005, L3890.6300, BTS, L3890.6100, L509.8000 #### [facility] [address] [place], [place], [address] Chlamydia trachomatis rRNA d etection by probe and target amplification methodOrdered By: Nieves Dennis on 06-09-2024 C. trachomatis rRNA SHER+probe Ql (Unsp spec) Negative Negative [facility] Eosinophil percentageOrdered By: Nieves Dennis on 06-09-2024 Eosinophils/100 WBC (Bld) 0.9 % 0-5 [facility] Erythrocyte distribution wid th ratioOrdered By: Nieves Dennis on 06-09-2024 Erythrocyte distribution width (RBC) [Ratio] 12.7 % 11.6-14.6 [facility] Erythrocyte distribution wid th standard deviationOrdered By: Nievescristine Dennis on 06-09-2024 Erythrocyte distribution width (RBC) [Ratio] 40.6 fl 35.1-43.9 [facility] HIV 1 and HIV-2 antibody ass ay with HIV-1 p24 antigen detectionOrdered By: Nieves Dennis on 06-09-2024 HIV 1+2 Ab+HIV1 p24 Ag IA Ql Non-Reactive Nonreactive [facility] Hematocrit Auto (Bld) [Volum e fraction]Ordered By: Nieves Dennis on 06-09-2024 Hematocrit (Bld) [Volume fraction] 40.0 % 37-47 [facility] Hemoglobin measurementOrdere d By: Nieves Dennis on 06-09-2024 Hemoglobin (Bld) [Mass/Vol] 13.2 g/dL 12.0-15.0 [facility] Hepatitis B Surface Antigeno n 06-09-2024 HEP B Surf Ag Non-Reactive Normal Nonreactive [facility] Comment on above: Order Comment: Reaso n for Exam: Performed By: #### M 100.2200, L7000.1800 #### [facility] [address] [place], [place], [address] Hepatitis C Antibodyon 06-09 Hepatitis C AB Non-Reactive Normal Nonreactive [facility] Comment on above: Order Comment: Reaso n for Exam: Result Comment: Non Reactive: < 0.8 Equivocal: >/= 0.8 to < 1.0 Reactive: >/= 1.0 The CDC requires that a reactive/equivocal HCV antibody result be sent out for confirmation. HCV Quant by PCR testing. Performed By: #### M 100.2200, L7000.1800 #### [facility] [address] [place], [address] Immature granulocytes/100 WB C Auto (Bld)Ordered By: Nieves Dennis on 06-09-2024 Immature granulocytes/100 WBC (Bld) 0.400 % 0.0-0.9 [facility] Comment on above: IG% - Immature Granu locytes (promyelocytes, myelocytes and metamyelocytes) > 1% indicates that a LEFT SHIFT is Present. L509.8000on 06-09-2024 Syphilis Abs Non-Reactive Normal [facility] Comment on above: Order Comment: Reaso n for Exam: Performed By: #### M 100.2200, L7000.1800 #### [facility] [address] [place], [place], [address] MCV (mean corpuscular volume ) determinationOrdered By: Nieves Dennis on 06-09-2024 MCV (RBC) [Entitic vol] 87.5 fL 81-99 [facility] Mean corpuscular hemoglobin (MCH) determinationOrdered By: Nieves Dennis on 06-09-2024 MCH (RBC) [Entitic mass] 28.9 pg 27.0-32.0 [facility] Mean corpuscular hemoglobin concentration (MCHC) determinationOrdered By: Nieves Dennis on 06-09-2024 MCHC (RBC) [Mass/Vol] 33.0 g/dL 32-36 [facility] Mean platelet volume determi nationOrdered By: Nieves Dennis on 06-09-2024 Platelet mean volume (Bld) [Entitic vol] 10.4 fL 6.2-12.0 [facility] Monocyte percentageOrdered B y: Nieves Dennis on 06-09-2024 Monocytes/100 WBC (Bld) 5.5 % 0-10 [facility] Neisseria gonorrhoeae nuclei c acid detection by amplified probe techniqueOrdered By: Nieves Dennis on 06-09-2024 N. gonorrhoeae DNA SHER+probe Ql (Unsp spec) Negative Negative [facility] Comment on above: Performed at: =[address], [place] [id number] Director: Kathleen Mathews MD, Phone: [phone] Neutrophil percentageOrdered By: Nieves Dennis on 06-09-2024 Neutrophils/100 WBC (Bld) 78.8 % High 47-70 [facility] Nucleated red blood cell per centageOrdered By: Nieves Dennis on 06-09-2024 Nucleated RBC/100 WBC (Bld) [Ratio] 0 % 0-5 [facility] Rental Counter Clerk Office Visit Reporton 06-09-2024 Rental Counter Clerk Office Visit Report [facility] [address], [address] [place] [address] OFFICE VISIT Date of Service: 06/09/24 MR#: [id number] Acct: [id number] Name: LEONARD MESSINA JANENE Rep #: [id number] : 1990 Provider: Dr. 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 Normal [facility] Platelet countOrdered By: Abdirashid Dennis on 06-09-2024 Platelets (Bld) [#/Vol] 237 10*3/uL 150-450 [facility] RBC Auto (Bld) [#/Vol]Ordere d By: Nieves Dennis on 06-09-2024 RBC (Bld) [#/Vol] 4.57 10*6/uL 4.2-5.[address] [facility] Rubella IgGon 06-09-2024 Rubella IgG Reactive Normal Nonreactive [facility] Comment on above: Order Comment: Reaso n for Exam: Result Comment: Anti body Results Interpretation of Immune Status Non Reactive Presumed Non-Immune Equivocal Equivocal Reactive Presumed Immune Performed By: #### M 100.2200, L7000.1800 #### [facility] [address] [place], [place], [id number] Serum Treponema species anti body detectionOrdered By: Nieves Dennis on 06-09-2024 Treponema sp Ab Ql (S) Non-Reactive [facility] Type AND Screenon 06-09-2024 Ab SCREEN GEL Negative Normal [facility] Comment on above: Order Comment: PN Performed By: #### L 100.0100, L509.4005, L3890.6300, BTS, L3890.6100, L509.8000 #### [facility] [address] [place], [address] Urine cultureOrdered By: Poonam Dennis on 06-09-2024 Bacteria identified Cx Nom (U) Culture exhibits no growth. [facility] White blood cell (WBC) count Ordered By: Nieves Dennis on 06-09-2024 WBC (Bld) [#/Vol] 11.8 10*3/uL High 4.4-11.[address] [facility] URINE CULTUREon 04-29-2024 Bacteria identified Cx Nom (U) URINE CULTURE, ROUTINE Mixed skin julia Normal [facility] Comment on above: Order Comment: >100, 000/mL Performed By: #### 4 [id number] #### [facility] [address] Cervical or vaginal specimen microscopic examination by liquid based cytology (reportOrdered By: Shameka Bronson on 07-19-2023 Cytology report Cyto stain.thin prep Doc (Cvx/Vag) Comment . [facility] Comment on above: Criteria not met, HP V Genotype not performed.Performed at: - [facility] [id number] Director: Kathleen Mathews MD, Phone: [phone] at: = - [facility] [id number] Director: Kathleen Mathews MD, Phone: [phone] Cervical or vagninal specime n microscopic examination by cytology stain (reported asOrdered By: Shameka Bronson on 07-19-2023 Cytology report Cyto stain Doc (Cvx/Vag) Comment . [facility] Comment on above: The Pap [...] DNA Probe+sig amp Ql (Cvx) Negative Negative [facility] Comment on above: This nucleic acid am plification test detects fourteen high-risk HPV types (16,18,31,33,35,39,45,51,52,56,58,59,66,68)without differentiation. Laboratory - CytologyOrdered By: Shameka Bronson on 07-19-2023 Lay Out Technician Cyto stain Nom (Cvx/Vag) [ID] Comment . [facility] Comment on above: Shayy Turner, Cyto technologist (ASCP) Laboratory - Miscellaneous t estsOrdered By: Shameka Bronson on 07-19-2023 Service comment (Unsp spec) [Interp] . . [facility] Thin prep Papanicolaou smear with manual screeningOrdered By: Shameka Bronson on 07-19-2023 Thin prep Papanicolaou smear with manual screening Comment . [facility] Comment on above: NEGATIVE FOR INTRAEP ITHELIAL LESION OR MALIGNANCY. This liquid based Th inPrep(R) pap test was screened withthe use of an image guided system. 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 no menstrual cycles since on continuous [...] No falls within the last year Normal [facility] [facility] Abdominal Aorta/Landy ac/IVC Ultraon 09-07-2019 VASC LAB Abdominal Aorta/Iliac/IVC Ultra [place] [address] and Vascular Lab Report Abdominal Aorta Iliac Ultrasound/IVC Ultrasound Patient Name: [facility] Physician: [id number] Juan J MIRANDA MD Study Date: 09/07/2019 Referring 06025 Trent Tavera MD Physician: MRN/PID: [id number] PCP: Accession/Order#: [id number] CC Report to: Date of : 1990 Technologist: Shanita Syed RVT Gender: F Technologist 2: Admission Status: Outpatient Location Performed: [facility] Diagnosis/ICD: R09.89-Other specified symptoms and signs involving the circulatory and respiratory systems Procedure/CPT: 38521 Duplex Aorta/IVC/Iliac/Byp ass Graft-22960 CONCLUSIONS: Aorta/Common Iliac Arteries/IVC: The inferior vena [...] phasic. Additional Findings: Imaging & Doppler Findings: 26939 Juan J Rincon MD Final Normal [facility] CT ABDOMEN/PELVIS Won 2018 CT ABDOMEN/PELVIS W [place] [address] Patient: LEONARD MIRANDA Phone#: : 1990 Age: 28 Gender: F Pt. Type: Out Account: [id number] Location: Ordering: FREIDA FAN Exam Date: 07/14/2018/11:29 Family Phys: SHAR BIRCH Charge Code: [id number] Physician: SHAMEKA BRONSON [place] Order #: [id number] DLP Dose#: PROCEDURE: CT ABDOMEN/PELVIS WITH CONTRAST COMPARISON: [facility], CT, ABDOMEN/PELVIS W CON, 09/07/2016, 8:31. [facility], CT, ABDOMEN/PELVIS W CON, 11/24/2016, 9:29. [facility], CT, ABDOMEN/PELVIS W CON, 10/01/2017, 13:23. INDICATIONS: [...] 28 Gender: F Pt. Type: Out Account: [id number] Location: Ordering: FREIDA ZHENGLL Exam Date: 07/14/2018/11:29 Family Phys: SHAR BIRCH Charge Code: 785525 Physician: SHAMEKA Cuetor Order #: [id number] DLP Dose#: PELVIC NODES: Normal. No adenopathy. [...] Dickson MD on 07/14/2018 at 12:42 Normal [facility] PELVICon 07-14-2018 [place] [address] Patient: LEONARD MIRANDA Phone#: : 1990 Age: 28 Gender: F Pt. Type: Out Account: [id number] Location: Ordering: FREIDA ZHENGLL Exam Date: 07/14/2018/8:39 Family Phys: SHAR BIRCH Charge Code: [id number] Physician: SHAMEKA Cuetor Order #: [id number] DLP Dose#: PROCEDURE: PELVIC ULTRASOUND, TRANSABDOMINAL COMPARISON: [facility], [place], PELVIC, 11/26/2016, 8:02. INDICATIONS: Vaginal Pain [...] Dickson MD on 07/14/2018 at 9:31 Normal [facility] CT ABDOMEN/PELVIS Won 2017 CT ABDOMEN/PELVIS W [place] [address] Patient: LEONARD MIRANDA Phone#: : 1990 Age: 27 Gender: F Pt. Type: Out Account: [id number] Location: Ordering: [facility] Exam Date: 10/01/2017/13:23 Family Phys: Charge Code: 890700 Physician: [place] Order #: [id number] DLP Dose#: PROCEDURE: CT ABDOMEN/PELVIS WITH CONTRAST COMPARISON: [facility], CT, ABDOMEN/PELVIS W CON, 09/07/2016, 8:31. [facility], CT, ABDOMEN/PELVIS W CON, 11/24/2016, 9:29. INDICATIONS: [...] 27 Gender: F Pt. Type: Out Account: [id number] Location: Ordering: [facility] Exam Date: 10/01/2017/13:23 Family Phys: Charge Code: 879813 Physician: [place] Order #: [id number] DLP Dose#: URINARY BLADDER: Normal. No visible [...] Dickson MD on 10/01/2017 at 13:54 Normal [facility] Vital Signs Date Time Vital Sign Value Performing Clinician Nikkii kelin 12-11-2024 10:26-0400 Body height 162.56 cm Shar LUNA Work Phone: [facility] 12-11-2024 10:26-0400 Body mass index (BMI) [Ratio] 29.5 kg/m2 Shar Birch PA Work Phone: [facility] 12-11-2024 10:26-0400 Body weight 78.07 kg Shar Birch PA Work Phone: [facility] 12-11-2024 10:26-0400 Diastolic blood pressure 79 mm[Hg] Shar Birch PA Work Phone: [facility] 12-11-2024 10:26-0400 Systolic blood pressure 120 mm[Hg] Shar Birch PA Work Phone: [facility] 11-27-2024 13:39-0400 Body height 162.56 cm Shar Birch PA Work Phone: [facility] 11-27-2024 13:39-0400 Body mass index (BMI) [Ratio] 29.5 kg/m2 Shar Birch PA Work Phone: [facility] 11-27-2024 13:39-0400 Body weight 78.01 kg Shar Birch PA Work Phone: [facility] 11-27-2024 13:39-0400 Diastolic blood pressure 72 mm[Hg] Shar Birch PA Work Phone: [facility] 11-27-2024 13:39-0400 Systolic blood pressure 112 mm[Hg] Shar Birch PA Work Phone: [facility] 11-16-2024 09:17-0400 Body height 162.56 cm Shar Birch PA Work Phone: [facility] 11-16-2024 09:17-0400 Body mass index (BMI) [Ratio] 29.5 kg/m2 Shar Birch PA Work Phone: [facility] 11-16-2024 09:17-0400 Body weight 78.07 kg Shar Birch PA Work Phone: [facility] 11-16-2024 09:17-0400 Diastolic blood pressure 75 mm[Hg] Shar Birch PA Work Phone: [facility] 11-16-2024 09:17-0400 Systolic blood pressure 109 mm[Hg] Shar Birch PA Work Phone: [facility] 11-01-2024 08:32-0400 Body weight 77.28 kg Shar Birch PA Work Phone: [facility] 10-30-2024 08:33-0400 Body height 162.56 cm Shar Birch PA Work Phone: [facility] 10-30-2024 08:33-0400 Body mass index (BMI) [Ratio] 29.2 kg/m2 Shar Birch PA Work Phone: [facility] 10-30-2024 08:33-0400 Body weight 77.28 kg Shar Birch PA Work Phone: [facility] 10-30-2024 08:33-0400 Diastolic blood pressure 75 mm[Hg] Shar Birch PA Work Phone: [facility] 10-30-2024 08:33-0400 Systolic blood pressure 118 mm[Hg] Shar Birch PA Work Phone: 8(140)545-370059 [place] [address] 10-16-2024 08:24-0400 Body height 162.56 cm Shar Birch PA Work Phone: [facility] 10-16-2024 08:21-0400 Body mass index (BMI) [Ratio] 29.7 kg/m2 Shar Birch PA Work Phone: [facility] 10-16-2024 08:21-0400 Body weight 78.47 kg Shar Birch PA Work Phone: [facility] 10-16-2024 08:21-0400 Diastolic blood pressure 72 mm[Hg] Shar Birch PA Work Phone: [facility] 10-16-2024 08:21-0400 Systolic blood pressure 118 mm[Hg] Shar Birch PA Work Phone: [facility] 09-25-2024 10:17-0400 Body height 162.56 cm Shar Birch PA Work Phone: [facility] 09-25-2024 10:17-0400 Body mass index (BMI) [Ratio] 28.8 kg/m2 Shar Birch PA Work Phone: [facility] 09-25-2024 10:17-0400 Body weight 76.2 kg Shar Birch PA Work Phone: [facility] 09-25-2024 10:17-0400 Diastolic blood pressure 84 mm[Hg] Shar Birch PA Work Phone: [facility] 09-25-2024 10:17-0400 Systolic blood pressure 121 mm[Hg] Shar Birch PA Work Phone: 0(140)228-837154 [address] 08-28-2024 09:33-0400 Body mass index (BMI) [Ratio] 28.3 kg/m2 Shar Birch PA Work Phone: 9(681)253-080059 [place] [address] 08-28-2024 09:33-0400 Body weight 74.89 kg Shar Birch PA Work Phone: 0(462)830-191859 [place] [address] 08-28-2024 09:33-0400 Diastolic blood pressure 70 mm[Hg] Shar Birch PA Work Phone: 3(042)212-9999[address] [place] [address] 08-28-2024 09:33-0400 Systolic blood pressure 106 mm[Hg] Shar Birch PA Work Phone: [facility] 08-03-2024 10:50-0400 Body mass index (BMI) [Ratio] 27.5 kg/m2 Shar Birch PA Work Phone: [facility] 08-03-2024 10:50-0400 Body weight 72.8 kg Shar Birch PA Work Phone: [facility] 08-03-2024 10:50-0400 Diastolic blood pressure 77 mm[Hg] Shar Birhc PA Work Phone: [facility] 08-03-2024 10:50-0400 Systolic blood pressure 121 mm[Hg] Shar Birch PA Work Phone: [facility] 07-07-2024 13:52-0400 Body mass index (BMI) [Ratio] 26.5 kg/m2 Shar Birch PA Work Phone: [facility] 07-07-2024 13:52-0400 Body weight 70.08 kg Shar Birch PA Work Phone: 0(273)663-115559 [place] [address] 07-07-2024 13:52-0400 Diastolic blood pressure 81 mm[Hg] Shar Birch PA Work Phone: 1(426)814-640059 [place] [address] 07-07-2024 13:52-0400 Systolic blood pressure 133 mm[Hg] Shar Birch PA Work Phone: 4(654)218-165554 [address] 06-09-2024 10:34-0500 Body mass index (BMI) [Ratio] 26.2 kg/m2 Shar Birch PA Work Phone: 3(096)983-760259 [place] [address] 06-09-2024 10:34-0500 Body weight 69.17 kg Shar Birch PA Work Phone: 5(874)163-252359 [place] [address] 06-09-2024 10:34-0500 Diastolic blood pressure 79 mm[Hg] Shar Birch PA Work Phone: 1(674)583-475959 [place] [address] 06-09-2024 10:34-0500 Systolic blood pressure 118 mm[Hg] Shar Birch PA Work Phone: 0(660)485-194859 [place] [address] 07-19-2023 08:28-0400 Body height 162.56 cm PA Shar Birch PA Work Phone: 5(301)122-901659 [place] [address] 07-19-2023 08:27-0400 Body mass index (BMI) [Ratio] 26.2 kg/m2 PA Shar Birch PA Work Phone: 6(994)178-659459 [place] [address] 07-19-2023 08:27-0400 Body weight 69.45 kg PA Shar Birch PA Work Phone: [facility] 07-19-2023 08:27-0400 Diastolic blood pressure 85 mm[Hg] PA Shar Birch PA Work Phone: [facility] 07-19-2023 08:27-0400 Systolic blood pressure 133 mm[Hg] PA Shar Birch PA Work Phone: [facility] Encounters Encounter Date Encounter Type Care Provider Facility Start: 12-11-2024 End: 12-11-2024 ambulatory Shar Birch PA Facility:[facility] Start: 12-11-2024 End: 12-11-2024 Patient encounter procedure Monserrat MATTHEW -[facility] Work Phone: Start: 12-04-2024 ambulatory Shar Birch PA Facil ity:[facility] Start: 11-27-2024 End: 11-27-2024 Patient encounter procedure Gabi KAUR -[facility] Work Phone: Start: 11-27-2024 End: 11-27-2024 ambulatory Shar Birch PA Work Phone: -[facility] Start: 11-16-2024 End: 11-16-[address] Shameka Bronson MD -[facility] Work Phone: Start: 11-16-2024 End: 11-16-2024 ambulatory Shar Birch PA Work Phone: -[facility] Start: 11-01-2024 End: 11-23-2024 Discharged Recurring Monserrat MATTHEW [facility] Work Phone: Start: 11-01-2024 Registered Recurring Monserrat MATTHEW -[facility] Work Phone: Start: 11-01-2024 End: 11-23-2024 ambulatory Shar Birch PA Work Phone: -[facility] Start: 10-30-2024 End: 10-30-2024 Patient encounter procedure Monserrat MATTHEW -[facility] Work Phone: Start: 10-30-2024 End: 10-30-2024 ambulatory Shar Birch PA Work Phone: -[facility] Start: 10-24-2024 End: 10-24-2024 ambulatory Shar Birch PA Work Phone: -Laboratory Start: 10-24-2024 End: 10-24-2024 Patient encounter procedure Monserrat MATTHEW -Laboratory Work Phone: Start: 10-24-2024 End: 10-24-2024 ambulatory Shar Birch PA Facility:[facility] Start: 10-16-2024 End: 10-16-2024 Patient encounter procedure Gabi PYLEC -[facility] Work Phone: Start: 10-16-2024 End: 10-16-2024 ambulatory Shar Birch PA Work Phone: [facility] Work Phone: Start: 10-16-2024 End: 10-16-2024 ambulatory Shar Birch PA Facility:[facility] Start: 09-25-2024 End: 09-25-2024 Patient encounter procedure Monserrat MATTHEW -[facility] Work Phone: Start: 09-25-2024 End: 09-25-2024 ambulatory Shar Birch PA Work Phone: [facility] Work Phone: Start: 08-28-2024 End: 08-28-2024 Patient encounter procedure Gabi KAUR -[facility] Work Phone: Start: 08-28-2024 End: 08-28-2024 ambulatory Shar Birch PA Facility:[facility] Start: 08-15-2024 End: 08-15-2024 ambulatory [facility] Start: 08-03-2024 End: 08-03-2024 Patient encounter procedure Monserrat MATTHEW -[facility] Work Phone: Start: 08-03-2024 End: 08-03-2024 ambulatory Shar Birch PA Facility:[facility] Start: 07-07-2024 End: 07-07-[address] Shameka Bronson MD -[facility] Work Phone: Start: 07-07-2024 End: 07-07-2024 ambulatory Shar LUNA Facility:[facility] Start: 06-09-2024 End: 06-09-[address] Nieves Tripp DO -[facility] Work Phone: Start: 06-09-2024 End: 06-09-2024 ambulatory Shar LUNA Facility:[facility] Start: 06-09-2024 End: 06-09-2024 ambulatory Nieves Tripp Facility:[facility] Start: 04-29-2024 End: 04-29-2024 ambulatory [facility] Start: 07-19-2023 End: 07-19-2023 ambulatory PA Shar LUNA Work Phone: [facility] Work Phone: Start: 07-19-2023 End: 07-19-2023 Patient encounter procedure PA Shar Birch PA Work Phone: [facility]-Laboratory, Specimen Work Phone: Start: 07-19-2023 End: 07-19-2023 Patient encounter procedure PA Sharmarian Birch JEREMY Work Phone: [facility] Work Phone: Start: 07-14-2018 End: 07-14-2018 Patient encounter procedure FREIDA FAN [facility] Start: 10-01-2017 End: 10-01-2017 Patient encounter procedure SHAR Barker [facility] kamara Pedro [address] [...] 0.8 to < 1.0 Reactive: >/= 1.0The [facility] requires that a reactive/equivocal HCV antibody result be sent out for confirmation. HCV Quant by PCR testing. Start: 06-09-2024 Rubella IgG measurement Shar LUNA Work Phone: Comment on above: Antibody Results Int erpretation of Immune Status Non Reactive Presumed Non-Immune Equivocal Equivocal Reactive Presumed Immune Start: 01-14-2021 Psychotherapy w/teri ent 60 minutes Alleymahesh KayeNavarro Start: 12-17-2020 Psychotherapy w/teri ent 60 minutes Alley Navarro Start: 11-28-2020 Psychiatric diagnost ic evaluation [facility] Start: 09-07-2019 Follow-up visit Plan of Treatment Date Care Activity Detail Author Start: 12-11-2024 Group B Streptococcus Culture Group B Streptococcus Culture [facility] Start: 12-11-2024 Streptococcus agalactiae [Presence] in Unspecified specimen by Organism specific culture [facility] Start: 10-16-2024 CBC W Auto Differential panel - Blood [facility] Start: 10-16-2024 Measurement of glucose 2 hours after glucose challenge for glucose tolerance test [facility] Start: 10-16-2024 Serologic test for syphilis [facility] Start: 10-16-2024 [facility] Beta-hemolytic Streptococcus culture [facility] CBC W Auto Different ial panel - Blood [facility] Erythrocyte mean corpuscular volume determination [facility] Hematocrit [Volume Fraction] of Blood [facility] Hemoglobin [Mass/vol ume] in Blood [facility] Leukocytes [#/volume ] in Blood [facility] Mean corpuscular hemoglobin concentration determination [facility] Mean corpuscular hemoglobin determination [facility] Measurement of gluco se 2 hours after glucose challenge for glucose tolerance test [facility] Neutrophil count [facility] Neutrophil percent differential count [facility] Platelets [#/volume] in Blood [facility] Red blood cell count [facility] Red cell distributio n width determination [facility] Rubella IgG measurement [facility] Serologic test for syphilis [facility] Payers Date Payer Category Payer Self-pay [id number] 2024 Unknown [id number] 1990 Unknown [id number] 2.16.84 [id number] 1990 Unknown [id number] 2.16.84 0.1.921630.3.579.2.651 1990 Unknown [id number] 2.16. 840.1.754699.3.579.2.297 1990 Unknown [id number] 2.16. 840.1.484336.3.579.2.479 Unknown [id number] Unknown [id number] 2.16.8 40.1.019953.3.579.2.462 Unknown [id number] 2.16.8 40.1.971752.3.579.2.462 Unknown [id number] 2.16.8 40.1.686825.3.579.2.462 Unknown [id number] 2.16.8 40.1.554436.3.579.2.462 Unknown [id number] 2.16.8 40.1.013884.3.579.2.462 Unknown [id number] 2.16.8 40.1.446829.3.579.2.462 Unknown [id number] 2.16.8 40.1.178528.3.579.2.462 Unknown [id number] 2.16.8 40.1.743766.3.579.2.462 Unknown [id number] 2.16.8 40.1.958558.3.579.2.462 Unknown [id number] 2.16.8 40.1.485178.3.579.2.462 Unknown [id number] 2.16.8 40.1.488467.3.579.2.462 Unknown [id number] 2.16.8 40.1.551521.3.579.2.462 Unknown [id number] 2.16.8 40.1.679012.3.579.2.462 Unknown [id number] 2.16.8 40.1.509419.3.579.2.462 Unknown [id number] 2.16.8 40.1.896269.3.579.2.462 Unknown [id number] 2.16.8 40.1.094845.3.579.2.462 Social History Date Type Detail Facility Start: 1990 [facility] [address] Start: 05-16-2024 Never Smoked [facility] [address] Start: 07-19-2023 Tobacco smoking stat [facility] Unknown if ever smoked [facility] Start: 1990 Sex Assigned At Female [facility] Medical Equipment Procedure Code Equipment Code Equipment Origin al Text Equipment Identifier Dates Procedure Implant ([id number]) Blood Sugar Diagnostic (Blood Glucose Test) strip Start: 10-25-2024 Lancets (Droplet Lancets) 30 gauge misc Start: 10-25-2024 Blood Sugar Diagnostic (Blood Glucose Test) strip Start: 10-25-2024 Lancets (Droplet Lancets) 30 gauge misc Start: 10-25-2024 Blood Sugar Diagnostic (Blood Glucose Test) strip Start: 10-25-2024 Lancets (Droplet Lancets) 30 gauge misc Start: 10-25-2024 Blood Sugar Diagnostic (Blood Glucose Test) strip Start: 10-25-2024 Lancets (Droplet Lancets) 30 gauge misc Start: 10-25-2024 Blood Sugar Diagnostic (Blood Glucose Test) strip Start: 10-25-2024 Lancets (Droplet Lancets) 30 gauge misc Start: 10-25-2024 Blood Sugar Diagnostic (Blood Glucose Test) strip Start: 10-25-2024 Lancets (Droplet Lancets) 30 gauge misc Start: 10-25-2024 Clinical Notes 07-19-2023 to 12-11-2024 Note Date & Type Note Facility 12-11-2024 Progress note [facility] 11-27-2024 Progress note [facility] 11-27-2024 Progress note Note Date/Time November 27, 2024 2:00pm [facility] [address] [place] [address], [address] [place] [address] OFFICE VISIT Date of Service: 11/27/24 MR#: [id number] Acct: [id number] Name: LEONARD MESSINA JANENE Rep #: [id number] : 1990 Provider: VINCENT Powers Age/Sex: 34/F Location: [facility] Status: Signed Intake Vital Signs 10/16/24 08:24 11/16/24 09:17 11/27/24 13:39 Height 5 ft 4 in 5 ft 4 in 5 ft 4 in Weight: 172 lb BMI 29.5 BP 112/72 Intake Visit Reasons: 34 wk ob Chief Complaint: 34 Week OB Tester Rocket Engine Required: No Is patient in pain?: No Allergies amoxicillin Allergy (Mild, Verified 11/27/24 13:39) Other Medications 3 ?Medication ?Instructions ?Recorded ?Confirmed ?Type magnesium glycinate 100 mg (as 100 mg PO QDAY 05/16/24 11/27/24 History glycinate) tablet vitamins no.163-iron tab PO 05/16/24 11/27/24 History bis-gly 20 mg-folate no.10 1 mg tablet (PNV Tabs 20-1) blood sugar diagnostic (Blood #120 ea 10/25/24 5 Rx Glucose Test strips) blood-glucose meter #1 ea 10/25/24 11/27/24 Rx lancets 30 gauge (Droplet Lancets) #200 ea 10/25/24 Rx Last Menstrual Period: 04/03/24 Zika: Zika virus screening: Negative : No PFSH PFSH Medical History Abnormal glucose affecting Surgical History S/P laparoscopy Social History adopted: No household members: spouse 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 status: employed 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 OB Visit DIEGO Calculator Estimated Delivery Date Method Current WG Current Estimate 01/08/25 LMP (Certain) 34w 0d Other Estimates 01/11/25 Ultrasound #1 33w 4d Expected Delivery Route/Plan Labor Preferences- CB/BF [...] large cyst. see attached op note. 07/07/24 -?-?-?-?-?-?-?-?-?-?-?-?- 13w 4d 154 lb 8 oz 133/81 Nega tive -?-?-?-?-?-?-?-?-?-?-?-?- Negative 150 -?-?-?-?-?-?-?-?-?-?-?-?- SM- no vb crampi ng 08/03/24 -?-?-?-?-?-?-?-?-?-?-?-?- 17w 3d 160 lb 8 oz 121/77 Nega tive -?-?-?-?-?-?-?-?-?-?-?-?- Negative 150 -?-?-?-?-?-?-?-?-?-?-?-?- KW- no vb/crampi ng. possible flutters. US scheduled. AFP discussed and declined 08/28/24 -?-?-?-?-?-?-?-?-?-?-?-?- 21w 0d 165 lb 2 oz 106/70 Trac e -?-?-?-?-?-?-?-?-?-?-?-?- Negative 160 -?-?-?-?-?-?-?-?-?-?-?-?- MH-No VB. Kirk inman Denies concerns 09/25/24 -?-?-?-?-?-?-?-?-?-?-?-?- 25w 0d 168 lb 121/84 Negative -?-?-?-?-?-?-?-?-?-?-?-?- Negative 150 26 -?-?-?-?-?-?-?-?-?-?-?-?- KW- no vb/lof/ct x. good fm. glucose next visit. CBE classes discussed. 10/16/24 -?-?-?-?-?-?-?-?-?-?-?-?- 28w 0d 173 lb 118/72 Negative -?-?-?-?-?-?-?-?-?-?-?-?- Negative 152 28 -?-?-?-?-?-?-?-?-?-?-?-?- MH-NO VB, LOF. G ood Fm. 28 wk labs pending. Rhogam given. Larc. Declines tdap 10/30/24 -?-?-?-?-?-?-?-?-?-?-?-?- 30w 0d 170 lb 6 oz 118/75 Nega tive -?-?-?-?-?-?-?--?-?-?-?-?- Negative 150 30 -?-?-?-?-?-?-?-?-?-?-?-?- KW- no vb/lof/ct x. good fm Blood sugars reviewed and WNL. discussed high protein snack at night. 11/16/24 -?-?-?-?-?-?-?-?-?-?-?-?- 32w 3d 172 lb 2 oz 109/75 Nega tive -?-?-?-?-?-?-?-?-?-?-?-?- Negative 140 32 -?-?-?-?-?-?-?-?-?-?-?-?- Sm- no vb lof go od fm no reuglar ctx BS controlled 11/27/24 -?-?-?-?-?-?-?-?-?-?-?-?- 34w 0d 172 lb 112/72 Negative -?-?-?-?-?-?-?-?-?-?-?-?- Negative 160 34 -?-?-?-?-?-?-?-?-?-?-?-?- MH-No vB, LOF. G ood FM. Glucose reading WNL except one and she knows what caused it. Notes fine red rash that itches on abdomen just after showers. No other symptoms. PUPPS? can try benadryl or claritan ACOG First Trimester First Trimester: Discussed Second Trimester Second Trimester: Signs and Symptoms of Labor, Selecting a care provider, Reproductive Life Planning & Contreception, Care Planning, Tobacco Cessation, Depression/Anxiety and Intimate Partner Violence Third Trimester Third Trimester: Pain Management Plans, Labor support person(s), Immediate Larc, Signs and Symptoms of Preeclampsia, Feeding No and Family Medical Leave or Disability Forms ROS Const Reports system reviewed and no additional complaints, except as documented GI Denies abdominal pain, Denies nausea and Denies vomiting Exam Const General: cooperative Nutritional Appearance: well nourished Resp Effort & Inspection: normal respiratory effort GI Inspection: normal to inspection Palpation: soft, nontender and other (gravid) Results POC Urinalysis 2 Dip (Clinic) Office Urine Glucose Negative Last Edit by Keisha Mckeon on 11/27/24 13 :45 Office Urine Protein Negative Last Edit by Keisha Mckeon on 11/27/24 13 :45 Coding Level of Care Code OB Routine Diagnoses Encounter for supervision of normal first in third trimester Z34.03 Trimester: third trimester 34 weeks gestation of Z3A.34 Weeks of gestation: 34 weeks S/P laparoscopy Z98.890 Rh negative status during in second trimester O26.892; Z67.91 Trimester: second trimester Gestational diabetes mellitus (GDM) affecting , antepartum O24.419 PUPP (pruritic urticarial papules and plaques of ) O26.86 Assessment and Plan Assessment and Plan (1) Supervision of normal first : Status: Acute Qualifiers: Trimester: third trimester Qualified Code(s): Z34.03 - Encounter for supervision of normal first , third trimester Comment: PRR , DIEGO 01/08/25, Tanvir Messina (2) : Status: Acute Qualifiers: Weeks of gestation: 34 weeks Qualified Code(s): Z3A.34 - 34 weeks gestation of Comment: discussed NIPT & Carrier testing- Undecided, normal anatomy (3) S/P laparoscopy: Status: Acute Comment: 2017 pelvic mass excision at [place], transvaginal repair, enterotomy repair (4) Rh negative status during : Status: Acute Qualifiers: Trimester: second trimester Qualified Code(s): O26.892 - Other specified related conditions, second trimester; Z67.91 - Unspecified blood type, Rh negative Comment: rhogam 28 wk, pp and prn bleeding, Given 10/16/24 (5) Gestational diabetes mellitus (GDM) affecting , antepartum: Status: Acute Comment: start testing QID and nutrition consult (6) PUPP (pruritic urticarial papules and plaques of ): Status: Acute Comment: on abdomen only, sees only after showers. Benadryl or claritan enc Orders: Orders POC Urinalysis 2 Dip (Clinic) Today Plan problem list reviewed and updated for most current plan of care and appropriate orders placed. Relevant counseling for the gestational age appropriate provided and ACOG education checklist updated. Continue routine care and follow up. 11/27/24 1400 <Electronically signed by Gabi lieberman NP MARKET DEVELOPMENT ANALYST-C> Date _ Gabi Powers NP MARKET DEVELOPMENT ANALYST-C Cosigner Signature: Date (if applicable) CC: ~ [facility] Work Phone: 1(812) 907-781707-07-2025 [facility] [address] [place] [address], [address] [place] [address] OFFICE VISIT Date of Service: 10/30/24 MR#: [id number] Acct: [id number] Name: LEONARD MESSINA JANENE Rep #: [id number] : 1990 Provider: KATHERIN Aguirre Age/Sex: 34/F Location: [facility] Status: Signed Intake Vital Signs 08/28/24 09:33 10/16/24 08:24 10/30/24 08:33 Height 5 ft 4 in 5 ft 4 in 5 ft 4 in Weight: 170 lb 6 oz BMI 29.2 BP 118/75 Intake Visit Reasons: 30wk ob Chief Complaint: 30wk OB Tester Rocket Engine Required: No Is patient in pain?: No Allergies amoxicillin Allergy (Mild, Verified 10/30/24 08:31) Other Medications 3 ?Medication ?Instructions ?Recorded ?Confirmed ?Type magnesium glycinate 100 mg (as 100 mg PO QDAY 05/16/24 10/30/24 History glycinate) tablet vitamins no.163-iron tab PO 05/16/24 10/30/24 History bis-gly 20 mg-folate no.10 1 mg tablet (PNV Tabs 20-1) blood sugar diagnostic (Blood #120 ea 10/25/24 5 Rx Glucose Test strips) blood-glucose meter #1 ea 10/25/24 10/30/24 Rx lancets 30 gauge (Droplet Lancets) #200 ea 10/25/24 Rx Last Menstrual Period: 04/03/24 [facility] Medical History Abnormal glucose affecting Surgical History S/P laparoscopy Social History adopted: No household members: spouse 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 status: employed 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 OB Visit DIEGO Calculator Estimated Delivery Date Method Current WG Current Estimate 01/08/25 LMP (Certain) 30w 0d Other Estimates 01/11/25 Ultrasound #1 29w 4d Expected Delivery Route/Plan Labor Preferences- CB/BF [...] current plan of care details and appropriate ordersplaced. Relevant counseling for the gestational age provided. [...] large cyst. see attached op note. 07/07/24 -?-?-?-?-?-?-?-?-?-?-?-?- 13w 4d 154 lb 8 oz 133/81 Nega tive -?-?-?-?-?-?-?-?-?-?-?-?- Negative 150 -?-?-?-?-?-?-?-?-?-?-?-?- SM- no vb crampi ng 08/03/24 -?-?-?-?-?-?-?-?-?-?-?-?- 17w 3d 160 lb 8 oz 121/77 Nega tive -?-?-?-?-?-?-?-?-?-?-?-?- Negative 150 -?-?-?-?-?-?-?-?-?-?-?-?- KW- no vb/crampi ng. possible flutters. US scheduled. AFP discussed and declined 08/28/24 -?-?-?-?-?-?-?-?-?-?-?-?- 21w 0d 165 lb 2 oz 106/70 Trac e -?-?-?-?-?-?-?-?-?-?-?-?- Negative 160 -?-?-?-?-?-?-?-?-?-?-?-?- MH-No VB. Kirk bailey movement. Denies concerns 09/25/24 -?-?-?-?-?-?-?-?-?-?-?-?- 25w 0d 168 lb 121/84 Negative -?-?-?-?-?-?-?-?-?-?-?-?- Negative 150 26 -?-?-?-?-?-?-?-?-?-?-?-?- KW- no vb/lof/ct x. good fm. glucose next visit. CBE classes discussed. 10/16/24 -?-?-?-?-?-?-?-?-?-?-?-?- 28w 0d 173 lb 118/72 Negative -?-?-?-?-?-?-?-?-?-?-?-?- Negative 152 28 -?-?-?-?-?-?-?-?-?-?-?-?- MH-NO VB, LOF. G ood Fm. 28 wk labs pending. Rhogam given. Larc. Declines tdap 10/30/24 -?-?-?-?-?-?-?-?-?-?-?-?- 30w 0d 170 lb 6 oz 118/75 Nega tive -?-?-?-?-?-?-?-?-?-?-?-?- Negative 150 30 -?-?-?-?-?-?-?-?-?-?-?-?- KW- no vb/lof/ct x. good fm Blood sugars reviewed and WNL. discussed high protein snack at night. ACOG Second Trimester Second Trimester: Signs and Symptoms of Labor, Selecting a care provider, Reproductive Life Planning & Contreception, Care Planning, Tobacco Cessation, Depression/Anxiety and Intimate Partner Violence Third Trimester Third Trimester: Pain Management Plans, Labor support person(s), Immediate Larc, Signs and Symptoms of Preeclampsia, Feeding and Family Medical Leave or Disability Forms ROS Const Reports system reviewed and no [...] Negative Last Edit by Eda Aponte on 10/30/24 08:40 Office Urine Protein Negative Last Edit by Eda Aponte on 10/30/24 08:40 Coding Level of Care Code OB Routine Diagnoses Gestational diabetes mellitus (GDM) affecting , antepartum O24.419 Rh negative status during in second trimester O26.892; Z67.91 Trimester: second trimester S/P laparoscopy Z98.890 Encounter for supervision of normal first in third trimester Z34.03 Trimester: third trimester 30 weeks gestation of Z3A.30 Weeks of gestation: 30 weeks Assessment and Plan Assessment and Plan (1) Gestational diabetes mellitus (GDM) affecting , antepartum: Status: Acute Comment: start testing QID and nutrition consult (2) Rh negative status during : Status: Acute Qualifiers: Trimester: second trimester Qualified Code(s): O26.892 - Other specified related conditions, second trimester; Z67.91 - Unspecified blood type, Rh negative Comment: rhogam 28 wk, pp and prn bleeding, Given 10/16/24 (3) S/P laparoscopy: Status: Acute Comment: 2017 pelvic mass excision at [place], transvaginal repair, enterotomy repair (4) Supervision of normal first : Status: Acute Qualifiers: Trimester: third trimester Qualified Code(s): Z34.03 - Encounter for supervision of normal first , third trimester Comment: , DIEGO 01/08/25, Tanvir Messina (5) : Status: Acute Qualifiers: Weeks of gestation: 30 weeks Qualified Code(s): Z3A.30 - 30 weeks gestation of Comment: discussed NIPT & Carrier testing- Undecided, normal anatomy Orders: Orders POC Urinalysis 2 Dip (Clinic) Today Plan Details Additional Comments: ACOG trimester education reviewed and updated. see problem list details for updated plan management information and see below for orders placed atthis visit. GA appropriate handout given. 10/30/24 0854 s KATHERIN> Date _ Monserrat Daigle Signature: Date (if applicable) CC: ~ [id number] [facility] [address] [place] [address], [address] [place] [address] OFFICE VISIT Date of Service: 09/25/24 MR#: [id number] Acct: [id number] Name: LEONARD MESSINA JANENE Rep #: [id number] : 1990 Provider: KATHERIN Aguirre Age/Sex: 34/F Location: [facility] Status: Signed Intake Vital Signs 08/03/24 10:50 08/28/24 09:33 09/25/24 10:17 Height 5 ft 4 in 5 ft 4 in 5 ft 4 in Weight: 160 lb 8 oz 165 lb 2 oz 168 lb BMI 27.5 28.3 28.8 BP 121/77 H 106/70 121/84 H Intake Visit Reasons: 25 wk ob Chief Complaint: 25wk OB Tester Rocket Engine Required: No Is patient in pain?: No [...] spouse 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 status: employed 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 Relevant counseling for the gestational age provided. [...] Acute Comment: 2017 pelvic mass excision at [place], transvaginal repair, enterotomy repair (3) Supervision of [...] first , second trimester, Z3A.25 - 25 weeksgestation of , Z67.91 - Unspecified blood type, [...] information and see below for orders placed atthis visit. GA appropriate handout given. Clinical Quality Measures Falls Risk Screening/Assistive Devices Have you fallen in the past year?: No 09/25/24 1041 s CNM> Date _ Monserrat Aguirre CNM Cosigner Signature: Date (if applicable) CC: ~ [facility]05-05-2025 Evaluation note* Diagnosis Onset Date Resolution Status Admit Date acute August 28, 2024 9:26am Rh negative status during acute August 28, 2024 9: 26am Supervision of normal first acute August 28, 2024 9: 26am acute September 25, 2024 10:13am Rh negative status during acute September 25, 2024 1 0:13am S/P laparoscopy acute September 25, 2024 10:13am Supervision of normal first acute September 25, 2024 1 0:13am acute October 16 8:13am Rh negative status during acute October 16, 2024 8:13am S/P laparoscopy acute September 8:13am Supervision of normal first acute October 16, 2024 8:13am Gestational diabetes mellitu s (GDM) affecting , antepartum acute October 30, 2024 8 :24am acute October 30, 2024 8:24am Rh negative status during acute October 30, 2024 8 :24am S/P laparoscopy acute October 30, 2024 8:24am Supervision of normal first acute October 30, 2024 8 :24am Gestational diabetes mellitu s (GDM) affecting , antepartum acute November 16, 2024 9:09am acute November 16 9:09am Rh negative status during acute November 16, 2024 9:09am S/P laparoscopy acute October 9:09am Supervision of normal first acute November 16, 2024 9:09am Gestational diabetes mellitu s (GDM) affecting , antepartum acute November 27, 2024 1:34pm acute November 27 1:34pm PUPP (pruritic urticarial papules and plaques of ) acute November 27, 2024 1:34pm Rh negative status during acute November 27, 2024 1:34pm S/P laparoscopy acute November 1:34pm Supervision of normal first acute November 27, 2024 1:34pm Gestational diabetes mellitu s (GDM) affecting , antepartum acute December 11 10:18am acute December 11, 025 10:18am PUPP (pruritic urticarial papules and plaques of ) acute December 11 10:18am Rh negative status during acute December 11 10:18am S/P laparoscopy acute December 112024 10:18am Supervision of normal first acute December 11 10:18am [facility] Work Phone: 1(110) 981-566804-10-2025 Evaluation note* Diagnosis Onset Date Resolution Status Admit Date acute August 03 10:45am Rh negative status [...] first acute September 25, 2024 1 0:13am acute October 16 8:13am Rh negative status during acute October 16, 2024 8:13am S/P laparoscopy acute September 8:13am Supervision of normal first acute October 16, 2024 8:13am Gestational diabetes mellitu s (GDM) affecting , antepartum acute October 30, 2024 8 :24am acute October 30, 2024 8:24am Rh negative status during acute October 30, 2024 8 :24am S/P laparoscopy acute October 30, 2024 8:24am Supervision of normal first acute October 30, 2024 8 :24am Gestational diabetes mellitu s (GDM) affecting , antepartum acute November 16, 2024 9:09am acute November 16 9:09am Rh negative status during acute November 16, 2024 9:09am S/P laparoscopy acute October 9:09am Supervision of normal first acute November 16, 2024 9:09am [facility] Work Phone: 1([phone]) 898-285504-10-2025 Evaluation note* Diagnosis Onset Date Resolution Status Admit Date acute August 03 10:45am Rh negative status [...] first acute September 25, 2024 1 0:13am acute October 16 8:13am Rh negative status during acute October 16, 2024 8:13am S/P laparoscopy acute September 8:13am Supervision of normal first acute October 16, 2024 8:13am Gestational diabetes mellitu s (GDM) affecting , antepartum acute October 30, 2024 8 :24am acute October 30, 2024 8:24am Rh negative status during acute October 30, 2024 8 :24am S/P laparoscopy acute October 30, 2024 8:24am Supervision of normal first acute October 30, 2024 8 :24am Gestational diabetes mellitu s (GDM) affecting , antepartum acute November 16, 2024 9:09am acute November 16 9:09am Rh negative status during acute November 16, 2024 9:09am S/P laparoscopy acute October 9:09am Supervision of normal first acute November 16, 2024 9:09am Gestational diabetes mellitu s (GDM) affecting , antepartum acute November 27, 2024 1:34pm acute November 27 1:34pm PUPP (pruritic urticarial papules and plaques of ) acute November 27, 2024 1:34pm Rh negative status during acute November 27, 2024 1:34pm S/P laparoscopy acute November 1:34pm Supervision of normal first acute November 27, 2024 1:34pm [facility] Work Phone: [phone]) 913-677603-14-2025 Evaluation note* Diagnosis Onset Date Resolution Status Admit Date acute July 07 1:48pm Rh negative status [...] first acute September 25, 2024 1 0:13am acute October 16 8:13am Rh negative status during acute October 16, 2024 8:13am S/P laparoscopy acute September 8:13am Supervision of normal first acute October 16, 2024 8:13am [facility] Work Phone: 1([phone]) 988-156503-14-2025 Evaluation note* Diagnosis Onset Date Resolution Status Admit Date acute July 07 1:48pm Rh negative status [...] first acute September 25, 2024 1 0:13am acute October 16 8:13am Rh negative status during acute October 16, 2024 8:13am S/P laparoscopy acute September 8:13am Supervision of normal first acute October 16, 2024 8:13am Gestational diabetes mellitu s (GDM) affecting , antepartum acute October 30, 2024 8 :24am acute October 30, 2024 8:24am Rh negative status during acute October 30, 2024 8 :24am S/P laparoscopy acute October 30, 2024 8:24am Supervision of normal first acute October 30, 2024 8 :24am [facility] Work Phone: 1([phone]) 509-446902-14-2025 Evaluation note* Diagnosis Onset Date Resolution Status [...] first acute September 25, 2024 1 0:13am [facility] Work Phone: 1(938) 207-950303-25-2024 NotePap Smear Specimen AdequacyMar 2023 12:43pmComment.Satisfactory for evaluation. No endocervical component is identified.[facility] INTERFACED A#[id number] Hardin Memorial HospitalComment on above:Satisfactory for evaluation. No endocervical component is identified. Consult note No Information to Report [facility] [address] discharge summary No Information to Report [facility] [address] Evaluation note No Information to Report [facility] [address] Evaluation note* Diagnosis Onset Date Resolution Status Encounter for routine gynecological examination noneactive [facility] Work Phone: History and physical note No Information to Report [facility] [address] procedure note No Information to Report [facility] [address] progress note No Information to Report [facility] [address] progress note Author Monserrat Aguirre [facility] Note Date/Time September 25, 2024 10:41 am [facility] [address] [place] [address], [address] [place] [address] OFFICE VISIT Date of Service: 09/25/24 MR#: [id number] Acct: [id number] Name: LEONARD MESSINA Rep #: [id number] : 1990 Provider: KATHERIN Aguirre Age/Sex: 34/F Location: [facility] Status: Signed Intake Vital Signs 08/03/24 10:50 08/28/24 09:33 09/25/24 10:17 Height 5 ft 4 in 5 ft 4 in 5 ft 4 in Weight: 160 lb 8 oz 165 lb 2 oz 168 lb BMI 27.5 28.3 28.8 BP 121/77 H 106/70 121/84 H Intake Visit Reasons: 25 wk ob Chief Complaint: 25wk OB Tester Rocket Engine Required: No Is patient in pain?: No [...] spouse 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 status: employed 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: No pets and animals: [...] physical activity do you participate in: none sim/episcopalian: Congregational seatbelt use: always do you feel safe at home: Yes additional social history: 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 Elective abortions Hx Para [...] Acute Comment: 2017 pelvic mass excision at [place], transvaginal repair, enterotomy repair (3) Supervision of [...] Cosigner Signature: Date (if applicable) CC: ~ [facility] Work Phone: Progress note Author Monserrat Aguirre [facility] Note Date/Time October 30, 2024 8:54a m [facility] [address] [place] [address], [address] [place] [address] OFFICE VISIT Date of Service: 10/30/24 MR#: [id number] Acct: [id number] Name: LEONARD MESSINA Rep #: [id number] : 1990 Provider: KATHERIN Aguirre Age/Sex: 34/F Location: [facility] Status: Signed Intake Vital Signs 08/28/24 09:33 10/16/24 08:24 10/30/24 08:33 Height 5 ft 4 in 5 ft 4 in 5 ft 4 in Weight: 170 lb 6 oz BMI 29.2 BP 118/75 Intake Visit Reasons: 30wk ob Chief Complaint: 30wk OB Tester Rocket Engine Required: No Is patient in pain?: No Allergies amoxicillin Allergy (Mild, Verified 10/30/24 08:31) Other Medications 3 ?Medication ?Instructions ?Recorded ?Confirmed ?Type magnesium glycinate 100 mg (as 100 mg PO QDAY 05/16/24 10/30/24 History glycinate) tablet vitamins no.163-iron tab PO 05/16/24 10/30/24 History bis-gly 20 mg-folate no.10 1 mg tablet (PNV Tabs 20-1) blood sugar diagnostic (Blood #120 ea 10/25/24 5 Rx Glucose Test strips) blood-glucose meter #1 ea 10/25/24 10/30/24 Rx lancets 30 gauge (Droplet Lancets) #200 ea 10/25/24 Rx Last Menstrual Period: 04/03/24 [facility] Medical History Abnormal glucose affecting Surgical History S/P laparoscopy Social History adopted: No household members: spouse 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 status: employed 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 OB Visit DIEGO Calculator Estimated Delivery Date Method Current WG Current Estimate 01/08/25 LMP (Certain) 30w 0d Other Estimates 01/11/25 Ultrasound #1 29w 4d Expected Delivery Route/Plan Labor Preferences- CB/BF [...] large cyst. see attached op note. 07/07/24 -?-?-?-?-?-?-?-?-?-?-?-?- 13w 4d 154 lb 8 oz 133/81 Nega tive -?-?-?-?-?-?-?-?-?-?-?-?- Negative 150 -?-?-?-?-?-?-?-?-?-?-?-?- SM- no vb crampi ng 08/03/24 -?-?-?-?-?-?-?-?-?-?-?-?- 17w 3d 160 lb 8 oz 121/77 Nega tive -?-?-?-?-?-?-?-?-?-?-?-?- Negative 150 -?-?-?-?-?-?-?-?-?-?-?-?- KW- no vb/crampi ng. possible flutters. US scheduled. AFP discussed and declined 08/28/24 -?-?-?-?-?-?-?-?-?-?-?-?- 21w 0d 165 lb 2 oz 106/70 Trac e -?-?-?-?-?-?-?-?-?-?-?-?- Negative 160 -?-?-?-?-?-?-?-?-?-?-?-?- MH-No VB. Feelin g movement. Denies concerns 09/25/24 -?-?-?-?-?-?-?-?-?-?-?-?- 25w 0d 168 lb 121/84 Negative -?-?-?-?-?-?-?-?-?-?-?-?- Negative 150 26 -?-?-?-?-?-?-?-?-?-?-?-?- KW- no vb/lof/ct x. good fm. glucose next visit. CBE classes discussed. 10/16/24 -?-?-?-?-?-?-?-?-?-?-?-?- 28w 0d 173 lb 118/72 Negative -?-?-?-?-?-?-?-?-?-?-?-?- Negative 152 28 -?-?-?-?-?-?-?-?-?-?-?-?- MH-NO VB, LOF. G ood Fm. 28 wk labs pending. Rhogam given. Larc. Declines tdap 10/30/24 -?-?-?-?-?-?-?-?-?-?-?-?- 30w 0d 170 lb 6 oz 118/75 Nega tive -?-?-?-?-?-?-?-?-?-?-?-?- Negative 150 30 -?-?-?-?-?-?-?-?-?-?-?-?- KW- no vb/lof/ct x. good fm Blood sugars reviewed and WNL. discussed high protein snack at night. ACOG Second Trimester Second Trimester: Signs and Symptoms of Labor, Selecting a care provider, Reproductive Life Planning & Contreception, Care Planning, Tobacco Cessation, Depression/Anxiety and Intimate Partner Violence Third Trimester Third Trimester: Pain Management Plans, Labor support person(s), Immediate Larc, Signs and Symptoms of Preeclampsia, Infant Feeding and Family Medical Leave or Disability Forms ROS Const Reports system reviewed and no [...] Office Urine Glucose Negative Last Edit by dEa Aponte on 10/30/24 08:40 Office Urine Protein Negative Last Edit by Eda Aponte on 10/30/24 08:40 Coding Level of Care Code OB Routine Diagnoses Gestational diabetes mellitus (GDM) affecting , antepartum O24.419 Rh negative status during in second trimester O26.892; Z67.91 Trimester: second trimester S/P laparoscopy Z98.890 Encounter for supervision of normal first in third trimester Z34.03 Trimester: third trimester 30 weeks gestation of Z3A.30 Weeks of gestation: 30 weeks Assessment and Plan Assessment and Plan (1) Gestational diabetes mellitus (GDM) affecting , antepartum: Status: Acute Comment: start testing QID and nutrition consult (2) Rh negative status during : Status: Acute Qualifiers: Trimester: second trimester Qualified Code(s): O26.892 - Other specified related conditions, second trimester; Z67.91 - Unspecified blood type, Rh negative Comment: rhogam 28 wk, pp and prn bleeding, Given 10/16/24 (3) S/P laparoscopy: Status: Acute Comment: 2017 pelvic mass excision at [facility], transvaginal repair, enterotomy repair (4) Supervision of normal first : Status: Acute Qualifiers: Trimester: third trimester Qualified Code(s): Z34.03 - Encounter for supervision of normal first , third trimester Comment: , DIEGO 01/08/25, Tanvir Messina (5) : Status: Acute Qualifiers: Weeks of gestation: 30 weeks Qualified Code(s): Z3A.30 - 30 weeks gestation of Comment: discussed NIPT & Carrier testing- Undecided, normal anatomy Orders: Orders POC Urinalysis 2 Dip (Clinic) Today Plan Details Additional Comments: ACOG trimester education reviewed and updated. see problem list details for updated plan management information and see below for orders placed at this visit. GA appropriate handout given. 10/30/24 0854 <Electronically signed by Monserrat lieberman CNM> Date _ Monserrat Aguirre CNM Cosigner Signature: Date (if applicable) CC: ~ [facility] Work Phone: Progress note Author Monserrat Aguirre [facility] Services Note Date/Time December 11, 2024 10 :45am [facility] [address] [place] [address], [place] [address] OFFICE VISIT Date of Service: 12/11/24 MR#: [id number] Acct: [id number] Name: LEONARD MESSINA JANENE Rep #: [id number] : 1990 Provider: KATHERIN Aguirre Age/Sex: 34/F Location: [facility] Status: Signed Intake Vital Signs 10/16/24 08:24 11/27/24 13:39 12/11/24 10:26 Height 5 ft 4 in 5 ft 4 in 5 ft 4 in Weight: 172 lb 2 oz BMI 29.5 BP 120/79 Intake Visit Reasons: 36 wk ob Tester Rocket Engine Required: No Is patient in pain?: No Allergies amoxicillin Allergy (Mild, Verified 12/11/24 10:27) Other Medications ?Medication ?Instructions ?Recorded ?Confirmed ?Type magnesium glycinate 100 mg (as 100 mg PO QDAY 05/16/24 12/11/24 History glycinate) tablet vitamins no.163-iron tab PO 05/16/24 12/11/24 History bis-gly 20 mg-folate no.10 1 mg tablet (PNV Tabs 20-1) blood sugar diagnostic (Blood #120 ea 10/25/24 5 Rx Glucose Test strips) blood-glucose meter #1 ea 10/25/24 12/11/24 Rx lancets 30 gauge (Droplet Lancets) #200 ea 10/25/24 Rx Last Menstrual Period: 04/03/24 Zika: Zika virus screening: Negative : No Have you fallen in the past year?: No PFSH PFSH Medical History Abnormal glucose affecting Surgical History S/P laparoscopy Social History adopted: No household members: spouse 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 status: employed 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 OB Visit DIEGO Calculator Estimated Delivery Date Method Current WG Current Estimate 01/08/25 LMP (Certain) 36w 0d Other Estimates 01/11/25 Ultrasound #1 35w 4d Expected Delivery Route/Plan Labor Preferences- CB/BF [...] large cyst. see attached op note. 07/07/24 -?-?-?-?-?-?-?-?-?-?-?-?- 13w 4d 154 lb 8 oz 133/81 Nega tive -?-?-?-?-?-?-?-?-?-?-?-?- Negative 150 -?-?-?-?-?-?-?-?-?-?-?-?- SM- no vb crampi ng 08/03/24 -?-?-?-?-?-?-?-?-?-?-?-?- 17w 3d 160 lb 8 oz 121/77 Nega tive -?-?-?-?-?-?-?-?-?-?-?-?- Negative 150 -?-?-?-?-?-?-?-?-?-?-?-?- KW- no vb/crajenny ng. possible flutters. US scheduled. AFP discussed and declined 08/28/24 -?-?-?-?-?-?-?-?-?-?-?-?- 21w 0d 165 lb 2 oz 106/70 Trac e -?-?-?-?-?-?-?-?-?-?-?-?- Negative 160 -?-?-?-?-?-?-?-?-?-?-?-?- MH-No VB. Kirk bailey movement. Denies concerns 09/25/24 -?-?-?-?-?-?-?-?-?-?-?-?- 25w 0d 168 lb 121/84 Negative -?-?-?-?-?-?-?-?-?-?-?-?- Negative 150 26 -?-?-?-?-?-?-?-?-?-?-?-?- KW- no vb/lof/ct x. good fm. glucose next visit. CBE classes discussed. 10/16/24 -?-?-?-?-?-?-?-?-?-?-?-?- 28w 0d 173 lb 118/72 Negative -?-?-?-?-?-?-?-?-?-?-?-?- Negative 152 28 -?-?-?-?-?-?-?-?-?-?-?-?- MH-NO VB, LOF. G ood Fm. 28 wk labs pending. Rhogam given. Larc. Declines tdap 10/30/24 -?-?-?-?-?-?-?-?-?-?-?-?- 30w 0d 170 lb 6 oz 118/75 Nega tive -?-?-?-?-?-?-?--?-?-?-?-?- Negative 150 30 -?-?-?-?-?-?-?-?-?-?-?-?- KW- no vb/lof/ct x. good fm Blood sugars reviewed and WNL. discussed high protein snack at night. 11/16/24 -?-?-?-?-?-?-?-?-?-?-?-?- 32w 3d 172 lb 2 oz 109/75 Nega tive -?-?-?-?-?-?-?-?-?-?-?-?- Negative 140 32 -?-?-?-?-?-?-?-?-?-?-?-?- Sm- no vb lof go od fm no reuglar ctx BS controlled 11/27/24 -?-?-?-?-?-?-?-?-?-?-?-?- 34w 0d 172 lb 112/72 Negative -?-?-?-?-?-?-?-?-?-?-?-?- Negative 160 34 -?-?-?-?-?-?-?-?-?-?-?-?- MH-No vB, LOF. G ood FM. Glucose reading WNL except one and she knows what caused it. Notes fine red rash that itches on abdomen just after showers. No other symptoms. PUPPS? can try benadryl or claritan 12/11/24 -?-?-?-?-?-?-?-?-?-?-?-?- 36w 0d 172 lb 2 oz 120/79 Nega tive -?-?-?-?-?-?-?-?-?-?-?-?- Negative 150 35 0 -?-?-?-?-?-?-?-?-?-?-?-?- KW- no vb/lof/ct x. good fm GBS today. growth US today. ACOG First Trimester First Trimester: Discussed Second Trimester Second Trimester: Signs and Symptoms of Labor, Selecting a care provider, Reproductive Life Planning & Contreception, Care Planning, Tobacco Cessation, Depression/Anxiety and Intimate Partner Violence Third Trimester Third Trimester: Pain Management Plans, Labor support person(s), Immediate Larc, Signs and Symptoms of Preeclampsia, Feeding No and Family Medical Leave or Disability Forms ROS Const Reports system reviewed and no [...] Office Urine Glucose Negative Last Edit by Kerrie Corrales on 12/11/24 10:31 Office Urine Protein Negative Last Edit by Kerrie Corrales on 12/11/24 10:31 Coding Level of Care Code OB Routine Diagnoses PUPP (pruritic urticarial papules and plaques of ) O26.86 Gestational diabetes mellitus (GDM) affecting , antepartum O24.419 Rh negative status during in second trimester O26.892; Z67.91 Trimester: second trimester S/P laparoscopy Z98.890 Encounter for supervision of normal first in third trimester Z34.03 Trimester: third trimester 36 weeks gestation of Z3A.36 Weeks of gestation: 36 weeks Assessment and Plan Assessment and Plan (1) PUPP (pruritic urticarial papules and plaques of ): Status: Acute Comment: on abdomen only, sees only after showers. Benadryl or claritan enc (2) Gestational diabetes mellitus (GDM) affecting , antepartum: Status: Acute Comment: start testing QID and nutrition consult, 36 wk growth US (3) Rh negative status during : Status: Acute Qualifiers: Trimester: second trimester Qualified Code(s): O26.892 - Other specified related conditions, second trimester; Z67.91 - Unspecified blood type, Rh negative Comment: rhogam 28 wk, pp and prn bleeding, Given 10/16/24 (4) S/P laparoscopy: Status: Acute Comment: 2017 pelvic mass excision at [place], transvaginal repair, enterotomy repair (5) Supervision of normal first : Status: Acute Qualifiers: Trimester: third trimester Qualified Code(s): Z34.03 - Encounter for supervision of normal first , third trimester Comment: PRR , DIEGO 01/08/25, Tanvir Messina (6) : Status: Acute Qualifiers: Weeks of gestation: 36 weeks Qualified Code(s): Z3A.36 - 36 weeks gestation of Comment: discussed NIPT & Carrier testing- Undecided, normal anatomy Orders: Orders POC Urinalysis 2 Dip (Clinic) Today Culture, Group B Streptococcus Today Z34.03 - Encounter for supervision of normal first , third trimester Plan Details Additional Comments: ACOG trimester education reviewed and updated. see problem list details for updated plan management information and see below for orders placed at this visit. GA appropriate handout given. 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) Reason for Visit Encounter for routin e [...] of normal first Ju ne 2024 8:13am Chief Complaint Admit Date 13wk OB July 07, 2024 1:4 8pm 17 wk ob August 03, 2024 10: 45am wk ob August 28, 2024 9:26am 25 wk ob September 25, 2024 10:13 am 28wk ob/glucose *rhogam October 16, 2024 8:13am ABNORMAL GLUCOSE October 24, 2024 6:49a m Chief Complaint Admit Date 13wk OB July 07, 2024 1:4 8pm 17 wk ob August 03, 2024 10: 45am 21wk ob August 28, 2024 9:26am 25 wk ob September 25, 2024 10:13 am 28wk ob/glucose *rhogam October 16, 2024 8:13am ABNORMAL GLUCOSE October 24, 2024 6:49a m 30wk ob October 30, 2024 8:24a m Reason for Visit Admit Date July 07, [...] Supervision of normal first Ju 2024 10:13am October 16, 2024 8:13 am Rh negative status during October 16, 2024 8:13am S/P laparoscopy October 16, 2024 8:13 am Supervision of normal first Ju ne 2024 8:13am Gestational diabetes mellitu s (GDM) affecting , antepartum October 30, 2024 8:24am October 30, 2024 8:24a m Rh negative status during October 30, 2024 8:24am S/P laparoscopy October 30, 2024 8:24a m Supervision of normal first Ju ly 2024 8:24am Chief Complaint Admit Date 17 wk ob August 03, 2024 10: 45am 21wk ob August 28, 2024 9:26am 25 wk ob September 25, 2024 10:13 am 28wk ob/glucose *rhogam October 16, 2024 8:13am ABNORMAL GLUCOSE October 24, 2024 6:49a m 30wk ob October 30, 2024 8:24a m GDM November 01, 2024 7:52a m 32wk ob November 16, 2024 9:09 am Reason for Visit Admit Date August 03, 2024 10: 45am Rh negative [...] of normal first Ju ne 2024 8:13am Gestational diabetes mellitu s (GDM) affecting , antepartum October 30, 2024 8:24am October 30, 2024 8:24a m Rh negative status during October 30, 2024 8:24am S/P laparoscopy October 30, 2024 8:24a m Supervision of normal first Ju ly 2024 8:24am Gestational diabetes mellitu s (GDM) affecting , antepartum November 16, 2024 9:09am November 16, 2024 9:09 am Rh negative status during November 16, 2024 9:09am S/P laparoscopy November 16, 2024 9:09 am Supervision of normal first Ju ly 2024 9:09am Chief Complaint Admit Date 17 wk ob August 03, 2024 10: 45am 21wk ob August 28, 2024 9:26am 25 wk ob September 25, 2024 10:13 am 28wk ob/glucose *rhogam October 16, 2024 8:13am ABNORMAL GLUCOSE October 24, 2024 6:49a m 30wk ob October 30, 2024 8:24a m GDM November 01, 2024 7:52a m 32wk ob November 16, 2024 9:09 am 34 wk ob November 27, 2024 1:3 4pm Reason for Visit Admit Date August 03, 2024 10: 45am Rh negative [...] of normal first Ju ne 2024 8:13am Gestational diabetes mellitu s (GDM) affecting , antepartum October 30, 2024 8:24am October 30, 2024 8:24a m Rh negative status during October 30, 2024 8:24am S/P laparoscopy October 30, 2024 8:24a m Supervision of normal first Ju ly 2024 8:24am Gestational diabetes mellitu s (GDM) affecting , antepartum November 16, 2024 9:09am November 16, 2024 9:09 am Rh negative status during November 16, 2024 9:09am S/P laparoscopy November 16, 2024 9:09 am Supervision of normal first Ju ly 2024 9:09am Gestational diabetes mellitu s (GDM) affecting , antepartum November 27, 2024 1:34pm November 27, 2024 1:3 4pm PUPP (pruritic urticarial papules and pl aques of ) November 27, 2024 1:34pm Rh negative status during Augu st 2024 1:34pm S/P laparoscopy November 27, 2024 1:3 4pm Supervision of normal first Au elizabeth 2024 1:34pm Chief Complaint Admit Date 21wk ob August 28, 2024 9:26am 25 wk ob September 25, 2024 10:13 am 28wk ob/glucose *rhogam October 16, 2024 8:13am ABNORMAL GLUCOSE October 24, 2024 6:49a m 30wk ob October 30, 2024 8:24a m GDM November 01, 2024 7:52a m 32wk ob November 16, 2024 9:09 am 34 wk ob November 27, 2024 1:3 4pm 36 wk ob December 11, 2024 10 :18am Reason for Visit Admit Date August 28, 2024 9:26am Rh negative status [...] of normal first Ju ne 2024 8:13am Gestational diabetes mellitu s (GDM) affecting , antepartum October 30, 2024 8:24am October 30, 2024 8:24a m Rh negative status during October 30, 2024 8:24am S/P laparoscopy October 30, 2024 8:24a m Supervision of normal first Ju ly 2024 8:24am Gestational diabetes mellitu s (GDM) affecting , antepartum November 16, 2024 9:09am November 16, 2024 9:09 am Rh negative status during November 16, 2024 9:09am S/P laparoscopy November 16, 2024 9:09 am Supervision of normal first Ju ly 2024 9:09am Gestational diabetes mellitu s (GDM) affecting , antepartum November 27, 2024 1:34pm November 27, 2024 1:3 4pm PUPP (pruritic urticarial papules and pl aques of ) November 27, 2024 1:34pm Rh negative status during Augu st 2024 1:34pm S/P laparoscopy November 27, 2024 1:3 4pm Supervision of normal first Au elizabeth 2024 1:34pm Gestational diabetes mellitu s (GDM) affecting , antepartum December 11, 2024 10:18am December 11, 2024 10 :18am PUPP (pruritic urticarial papules and pl aques of ) December 11, 2024 10:18am Rh negative status during Augu st 2024 10:18am S/P laparoscopy December 11, 2024 10 :18am Supervision of normal first [facility] 2024 10:18am Additional Source Comments INFORMATION SOURCE (unrecogn ized section and content) DATE CREATED AUTHOR 07/14/[address] [facility] DATE CREATED AUTHOR AUTHOR'S ORGANIZ ATION 09/08/2019 [facility] DATE CREATED AUTHOR AUTHOR'S ORGANIZ ATION 03/22/2020 [employer] DATE CREATED AUTHOR AUTHOR'S ORGANIZ ATION 05/06/2024 [facility] re System DATE CREATED AUTHOR AUTHOR'S ORGANIZ ATION 08/18/2024 [facility] DATE CREATED AUTHOR AUTHOR'S ORGANIZ ATION 12/08/2024 [facility] Care Teams (unrecognized sec tion and [...] 2024 End: August 28, 2024 Gabi Powers MARKET DEVELOPMENT ANALYST, MARKET DEVELOPMENT ANALYST-C Attending Provider Active Start: August 28, 2024 [...] 2024 End: October 16, 2024 Gabi Powers MARKET DEVELOPMENT ANALYST, MARKET DEVELOPMENT ANALYST-C Attending Provider Active Start: October 16, 2024 [...] 2024 End: August 28, 2024 Gabi Powers MARKET DEVELOPMENT ANALYST, MARKET DEVELOPMENT ANALYST-C Attending Provider Active Start: August 28, 2024 [...] October 16, 2024 End: October 16, 2024 aGbi Powers MARKET DEVELOPMENT ANALYST, MARKET DEVELOPMENT ANALYST-C Attending Provider Active Start: October 16, 2024 [...] PA Primary Care Provider Active Start: October 24, 2024 End: October 24, 2024 Monserrat Aguirre CNM Attending Provider Active S tart: October 24, 2024 End: October 24, 2024 Monserrat Aguirre CNM Referring Provider Active S tart: October 24, 2024 End: October 24, 2024 Team Status: Inactive Member Role/Relationship Status Dates Shar Birch PA, PA Primary Care Provider Active Start: October 30, 2024 End: October 30, 2024 Shar Birch PA, PA Referring Provider Active Start: October 30, 2024 End: October 30, 2024 Monserrat Aguirre CNM Attending Provider Active S tart: October 30, 2024 End: October 30, 2024 Team Status: Inactive Member Role/Relationship Status [...] End: August 28, 2024 Gabi Powers NP, MARKET DEVELOPMENT ANALYST-C Attending Provider Active Start: August 28, 2024 [...] 2024 End: October 16, 2024 Gabi Powers MARKET DEVELOPMENT ANALYST, MARKET DEVELOPMENT ANALYST-C Attending Provider Active Start: October 16, 2024 [...] PA Primary Care Provider Active Start: October 24, 2024 End: October 24, 2024 Monserrat Aguirre CNM Attending Provider Active S tart: October 24, 2024 End: October 24, 2024 Monserrat Aguirre CNM Referring Provider Active S tart: October 24, 2024 End: October 24, 2024 Team Status: Inactive Member Role/Relationship Status Dates Shar Birch PA, PA Primary Care Provider Active Start: October 30, 2024 End: October 30, 2024 Shar Birch PA, PA Referring Provider Active Start: October 30, 2024 End: October 30, 2024 Monserrat Aguirre CNM Attending Provider Active S tart: October 30, 2024 End: October 30, 2024 Team Status: Active Member Role/Relationship Status Dates Shar Birch PA, PA Primary Care Provider Active Start: November 01, 2024 Monserrat Aguirre CNM Attending Provider Active S tart: November 01, 2024 Monserrat Aguirre CNM Referring Provider Active S tart: November 01, 2024 Team Status: Inactive Member Role/Relationship Status Dates Shar Birch PA, PA Primary Care Provider Active Start: November 16, 2024 End: November 16, 2024 Shar Birch PA, PA Referring Provider Active Start: November 16, 2024 End: November 16, 2024 Dr. Shameka Bronson MD Attending Provider Active Start: November 16, 2024 End: November 16, 2024 Team Status: Inactive Member Role/Relationship Status Dates Shar Birch PA, PA Primary Care Provider Active Start: November 01, 2024 End: November 23, 2024 Monserrat Aguirre CNM Attending Provider Active S tart: November 01, 2024 End: November 23, 2024 Monserrat Aguirre CNM Referring Provider Active S tart: November 01, 2024 End: November 23, 2024 Team Status: Inactive Member Role/Relationship Status Dates Shar Birch PA, PA Primary Care Provider Active Start: November 27, 2024 End: November 27, 2024 Shar Birch PA, PA Referring Provider Active Start: November 27, 2024 End: November 27, 2024 Gabi Powers MARKET DEVELOPMENT ANALYST, MARKET DEVELOPMENT ANALYST-C Attending Provider Active Start: November 27, 2024 End: November 27, 2024 Team Status: Inactive Member Role/Relationship Status Dates Shar Birch PA, PA Primary Care Provider Active Start: August 28, 2024 End: August 28, 2024 Shar Birch PA, PA Referring Provider Active Start: August 28, 2024 End: August 28, 2024 Gabi Powers MARKET DEVELOPMENT ANALYST, MARKET DEVELOPMENT ANALYST-C Attending Provider Active Start: August 28, 2024 [...] 2024 End: October 16, 2024 Gabi Powers MARKET DEVELOPMENT ANALYST, MARKET DEVELOPMENT ANALYST-C Attending Provider Active Start: October 16, 2024 [...] PA Primary Care Provider Active Start: October 24, 2024 End: October 24, 2024 Monserrat Aguirre CNM Attending Provider Active S tart: October 24, 2024 End: October 24, 2024 Monserrat Aguirre CNM Referring Provider Active S tart: October 24, 2024 End: October 24, 2024 Team Status: Inactive Member Role/Relationship Status Dates Shar Birch PA, PA Primary Care Provider Active Start: October 30, 2024 End: October 30, 2024 Shar Birch PA, PA Referring Provider Active Start: October 30, 2024 End: October 30, 2024 Monserrat Aguirre CNM Attending Provider Active S tart: October 30, 2024 End: October 30, 2024 Team Status: Inactive Member Role/Relationship Status Dates Shar Birch PA, PA Primary Care Provider Active Start: November 01, 2024 End: November 23, 2024 Monserrat Aguirre CNM Attending Provider Active S tart: November 01, 2024 End: November 23, 2024 Monserrat Aguirre CNM Referring Provider Active S tart: November 01, 2024 End: November 23, 2024 Team Status: Inactive Member Role/Relationship Status Dates Shar Birch PA, PA Primary Care Provider Active Start: November 16, 2024 End: November 16, 2024 Shar Birch PA, PA Referring Provider Active Start: November 16, 2024 End: November 16, 2024 Dr. Shameka Bronson MD Attending Provider Active Start: November 16, 2024 End: November 16, 2024 Team Status: Inactive Member Role/Relationship Status Dates Shar Birch PA, PA Primary Care Provider Active Start: November 27, 2024 End: November 27, 2024 Shar Birch PA, PA Referring Provider Active Start: November 27, 2024 End: November 27, 2024 Gabi Powers NP, MARKET DEVELOPMENT ANALYST-C Attending Provider Active Start: November 27, 2024 End: November 27, 2024 Team Status: Inactive Member Role/Relationship Status Dates Shar Birch PA, PA Primary Care Provider Active Start: December 11, 2024 End: December 11, 2024 Shar Birch PA, PA Referring Provider Active Start: December 11, 2024 End: December 11, 2024 Monserrat Aguirre CNM Attending Provider Active S tart: December 11, 2024 End: December 11, 2024 Team Status: Active Member Role/Relationship Status Dates JEREMY Handy Primary Care Provider Active Start: December 11, 2024 Monserrat Aguirre CNM Attending Provider Active S tart: December 11, 2024 Monserrat Aguirre CNM Referring Provider Active S tart: December 11, 2024 Goals (unrecognized section and content) Goals [...] BE BASED ON THE PRIMARY CLINICAL RECORDS. [employer] provides no warranty or guarantee of the accuracy or completeness of information in this document.
== END | disposition home or self-care (01) ==
LOC: LABSPEC 10:59
PROVIDERS: PCP Physician Assistant; Referring Provider Advanced Practice Midwife; Visit Provider Advanced Practice Midwife
DX: Z34.03 Encounter for supervision of normal first pregnancy, third trimester (principal)
CPT/HCPCS: 87081

== ENCOUNTER → 2024-12-20 | Outpatient (CLI) | payer OTHER, SELFPAY ==
--- NOTE | 2024-12-20 07:59 | US_ITS ---
PROCEDURE: OB LIMITED (NO BIOMETRICS) 12/20/2024 REASON FOR EXAM: MAILE Low MAILE. TECHNIQUE: OB LIMITED (NO BIOMETRICS) COMPARISON: Prior study dated December 11, 2024. FINDINGS Number: 1 Position: Vertex Placental Position: Posterior and not low-lying. Placental Abnormalities: No evidence of previa. ESTIMATED GESTATIONAL AGE: Baseline: 37 weeks and 2 days By Ultrasound: 37 weeks and 6 days ESTIMATED DATE OF DELIVERY: Baseline: January 08, 2025 By Ultrasound: January 04, 2025 BIOPHYSICAL ASSESSMENT: Amniotic Fluid Volume: 3.9 cm Amniotic Fluid Index: 9.9 cm (8-24 cm normal range) Cardiac Motion: 146 beats per minute (average) Trunk and Limb Motion: Present. MATERNAL ANATOMY: Adnexa: Neither maternal ovary is successfully identified. Cervical Length (if measured): 3.1 cm US/OB Limited (No Biometrics) IMPRESSION: Amniotic fluid index measures 9.9 cm. Reading Location: [place]
== END | disposition home or self-care (01) ==
PROVIDERS: PCP Physician Assistant; Referring Provider Advanced Practice Midwife; Visit Provider Advanced Practice Midwife
DX: O28.8 Other abnormal findings on antenatal screening of mother (principal); Z3A.00 Weeks of gestation of pregnancy not specified
CPT/HCPCS: 76815

== ENCOUNTER → 2024-12-27 | Outpatient (CLI) | payer OTHER, SELFPAY ==
--- NOTE | 2024-12-27 11:51 | US_ITS ---
PROCEDURE: OB LIMITED (NO BIOMETRICS) 12/27/2024 REASON FOR EXAM: MAILE TECHNIQUE: Procedure Code: USOBL Modality: US Procedure: OB LIMITED (NO BIOMETRICS) COMPARISON: Prior study dated December 20, 2024. FINDINGS Number: 1 Position: Vertex Placental Position: Fundal in position Placental Abnormalities: No evidence of previa. / ESTIMATED GESTATIONAL AGE: Baseline: 38 weeks and 2 days ESTIMATED DATE OF DELIVERY: Baseline: January 08, 2025. BIOPHYSICAL ASSESSMENT: Amniotic Fluid Volume: 4.8 cm Amniotic Fluid Index: 11.1 cm (8-24 cm normal range) Cardiac Motion: 145 beats per minute (average) Trunk and Limb Motion: Present. US/OB Limited (No Biometrics) IMPRESSION: Normal amniotic fluid index. Reading Location: [place] [id number]
== END | disposition home or self-care (01) ==
LOC: US 11:51
PROVIDERS: PCP Physician Assistant; Referring Provider Advanced Practice Midwife; Visit Provider Advanced Practice Midwife
DX: O28.8 Other abnormal findings on antenatal screening of mother (principal); Z3A.00 Weeks of gestation of pregnancy not specified
CPT/HCPCS: 76815

== ENCOUNTER 2025-01-05 12:00 | Inpatient (IN) | payer OTHER, SELFPAY ==
[2025-01-05 12:21] VITALS: BMI 29.1
[2025-01-05 13:09] LABS: Hematocrit 38.3 % (37-47); Hemoglobin 13.2 g/dL (12.0-15.0); Immature Granulocytes Count 0.060 X10^3/uL (0.0-0.0); Mean Corp Hgb Conc 34.5 g/dL (32-36); Mean Corpuscular Volume 88.7 fL (81-99); Mean Platelet Vol. 12.4 fl (6.2-12.0); NRBC Flagged by Analyzer 0 % (0-5); POSITIVE COUNT YES; RBC Distribution Width CV 13.6 % (11.6-14.6); RBC Distribution Width SD 44.4 fl (35.1-43.9); Red Blood Count 4.32 M/mm3 (4.2-5.4); White Blood Count 10.9 K/mm3 (4.4-11.0)
[2025-01-05 14:08] LABS: Differential Indicated SCAN CRITERIA MET
[2025-01-05 14:11] LABS: Syphilis Antibodies Nonreactive (Nonreactive)
[2025-01-05 15:18] VITALS: RESP 16; TEMP 36.4
[2025-01-05 15:20] VITALS: BP 132/84; PULSE 138; O2SAT 96
[2025-01-05 16:31] LABS: Platelet Count 150 K/mm3 (150-450)
[2025-01-05 17:29] VITALS: BP 123/83; PULSE 110
[2025-01-05 17:30] VITALS: RESP 16; TEMP 37.1
--- NOTE | 2025-01-05 18:20 | PCM.HP.OB ---
HPI - General General Date of Admission: 01/05/25 HPI Narrative LEONARD MESSINA, is a 34 F who presents ial srom in office 4 cm gdma1 Maternal Data Information DIEGO Calculator Estimated Delivery Date Method Current WG Current Estimate 01/08/25 LMP (Certain) 39w 5d Other Estimates 01/11/25 Ultrasound #1 39w 2d PFSH PFS Medical History (Updated 01/06/25 @ 00:[address] Shameka Egan MD) Gestational diabetes Abnormal glucose affecting Home Medications ?Medication ?Instructions ?Recorded ?Last Taken ?Type magnesium glycinate 100 mg (as 100 mg PO QDAY 05/16/24 Unknown History glycinate) tablet vitamins no.163-iron tab PO 05/16/24 Unknown History bis-gly 20 mg-folate no.10 1 mg tablet (PNV Tabs 20-1) blood sugar diagnostic (Blood #120 ea 10/25/24 Unknown Rx Glucose Test strips) blood-glucose meter #1 ea 10/25/24 Unknown Rx lancets 30 gauge (Droplet Lancets) #200 ea 10/25/24 Unknown Rx Allergy/AdvReac Type Severity Reaction Status Date / Time amoxicillin Allergy Mild Other Verified 01/05/25 10:59 Surgical History S/P laparoscopy Social History adopted: No household members: spouse 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 status: employed 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 exposures/hazards: No pets and animals: Yes pets and animals: dog(s) history of recent travel: Yes (- April) out of state: Yes out of country: No sexually active: Yes Smoking Status: Never smoker alcohol intake: current alcohol intake frequency: holidays/special occasions only details: not while substance use type: does not use diet: other well-balanced diet: daily or most days caffeine: Yes Type: coffee Number of servings: 1 eating out: rarely or never during the past year weight has: remained stable what type of physical activity do you participate in: none sim/zoroastrianism: Restorationism seatbelt use: always do you feel safe at home: Yes additional social history: Tanvir Messina 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 History 1 Elective abortions Hx Para 0 Spontaneous abortions Hx # Term Pregnancies Ectopic pregnancies Hx # Pregnancies Multiple births # of living children Visit Details Expected Delivery Route/Plan Labor Preferences- CB/BF classes: encouraged labor support person: Tanvir labor intervention preferences: [] pain management options preferred: limited but would do epidural cut cord/dad catch: maybe : yes PP control planned: discussed discussed possible routes of delivery and associated risks: [] special requests: [] Plans Covid status: [] Flu vaccine: [] Tdap vaccine: declined Rhogam: given 10/16/24 LARC form signed: yes Problem list reviewed and updated with the most current plan of care details and appropriate orders placed. Relevant counseling for the gestational age provided. Continue routine care and follow up unless otherwise noted in visit notes/problem list details OB Flowsheet Initial Weight: Not Recorded Date <del>?</del> EGA Weight BP Urine Prot <del>?</del> Glucose FHR FuHt Pres Dilation <del>?</del> Effaced St Visit Note 06/09/24 <del>?</del> 9w 4d 152 lb 8 oz 118/79 <del>?</del> 180 <del>?</del> JV- CRL is consistent with LMP. declines NIPT. first baby, has h/o rectovaginal surgery for a large cyst. see attached op note. 07/07/24 <del>?</del> 13w 4d 154 lb 8 oz 133/81 Negative <del>?</del> Negative 150 <del>?</del> SM- no vb cramping 08/03/24 <del>?</del> 17w 3d 160 lb 8 oz 121/77 Negative <del>?</del> Negative 150 <del>?</del> KW- no vb/cramping. possible flutters. US scheduled. AFP discussed and declined 08/28/24 <del>?</del> 21w 0d 165 lb 2 oz 106/70 Trace <del>?</del> Negative 160 <del>?</del> MH-No VB. Feeling movement. Denies concerns 09/25/24 <del>?</del> 25w 0d 168 lb 121/84 Negative <del>?</del> Negative 150 26 <del>?</del> KW- no vb/lof/ctx. good fm. glucose next visit. CBE classes discussed. 10/16/24 <del>?</del> 28w 0d 173 lb 118/72 Negative <del>?</del> Negative 152 28 <del>?</del> MH-NO VB, LOF. Good Fm. 28 wk labs pending. Rhogam given. Larc. Declines tdap 10/30/24 <del>?</del> 30w 0d 170 lb 6 oz 118/75 Negative <del>?</del> Negative 150 30 <del>?</del> KW- no vb/lof/ctx. good fm Blood sugars reviewed and WNL. discussed high protein snack at night. 11/16/24 <del>?</del> 32w 3d 172 lb 2 oz 109/75 Negative <del>?</del> Negative 140 32 <del>?</del> Sm- no vb lof good fm no reuglar ctx BS controlled 11/27/24 <del>?</del> 34w 0d 172 lb 112/72 Negative <del>?</del> Negative 160 34 <del>?</del> MH-No vB, LOF. Good FM. Glucose reading WNL except one and she knows what caused it. Notes fine red rash that itches on abdomen just after showers. No other symptoms. PUPPS? can try benadryl or claritan 12/11/24 <del>?</del> 36w 0d 172 lb 2 oz 120/79 Negative <del>?</del> Negative 150 35 0 <del>?</del> KW- no vb/lof/ctx. good fm GBS today. growth US today. 12/20/24 <del>?</del> 37w 2d 169 lb 4 oz 120/84 Negative <del>?</del> Negative 148 38 0 <del>?</del> MH-No VB, LOF or reg CTX. US to check MAILE today/pending. 12/27/24 <del>?</del> 38w 2d 171 lb 1 oz 112/77 Negative <del>?</del> Negative 140 37 3 <del>?</del> 70 -1 JV- glucose levels are normal. maile 11 today. labor precautions discussed. plan 40 week IOL if still . 01/05/25 <del>?</del> 39w 4d 170 lb 4 oz 126/84 Negative <del>?</del> Negative 140 38 <del>?</del> NST FHR Rate Baby A Baseline: 140 Variability:: Moderate Accelerations:: 15 x 15 Decelerations:: None NST Reactive:: Yes FHR Category:: Category I Uterine Activity:: q3-5 ROS Constitutional Constitutional: Reports systems reviewed and no addt'l complaints, except as documented Eyes Eyes: Denies change in vision ENT HEENT: Reports systems reviewed and no addt'l complaints, except as documented Cardiovascular Cardiovascular: Reports systems reviewed and no addt'l complaints, except as documented Respiratory/Chest Respiratory/Chest: Reports systems reviewed and no addt'l complaints, except as documented Gastrointestinal Gastrointestinal: Reports systems reviewed and no addt'l complaints, except as documented and nausea; Denies abdominal pain Genitourinary Genitourinary: Reports systems reviewed and no addt'l complaints, except as documented, contractions Details: present and frequency (regular ) and movement Details: present Musculoskeletal Musculoskeletal: Reports systems reviewed and no addt'l complaints, except as documented Integumentary Integumentary: Reports as per HPI Neurologic Neurologic: Reports systems reviewed and no addt'l complaints, except as documented Endocrine Endocrinology: Reports systems reviewed and no addt'l complaints, except as documented Vital Signs Vital Signs Vital Signs: 01/05/25 15:18 01/05/25 15:18 01/05/25 15:18 Temperature 97.6 F L Temperature Source Temporal Pulse Rate Respiratory Rate 16 Blood Pressure BP Systolic BP Diastolic Pulse Ox 01/05/25 15:20 01/05/25 15:20 01/05/25 15:20 Temperature Temperature Source Pulse Rate 138 H Respiratory Rate Blood Pressure 132/84 H BP Systolic 132 BP Diastolic 84 Pulse Ox 96 01/05/25 17:29 01/05/25 17:29 01/05/25 17:30 Temperature Temperature Source Temporal Pulse Rate 110 H Respiratory Rate Blood Pressure 123/83 H BP Systolic 123 BP Diastolic 83 Pulse Ox 01/05/25 17:30 01/05/25 17:30 01/05/25 17:30 Temperature 98.7 F Temperature Source Temporal Pulse Rate Respiratory Rate 16 Blood Pressure BP Systolic BP Diastolic Pulse Ox 01/05/25 17:30 01/05/25 17:30 Temperature 98.7 F Temperature Source Pulse Rate Respiratory Rate 16 Blood Pressure BP Systolic BP Diastolic Pulse Ox Weight Weight: 169 lb 9.6 oz Body Mass Index (BMI) 29.1 Physical Exam Const alert, oriented x3 and healthy appearing Constitutional Narrative: uncomfortable with contractions HEENT normocephalic and moist oral mucous membranes Head and Scalp: atraumatic Neck full ROM, no lymphadenopathy, supple and thyroid normal General: trachea midline Thyroid: thyroid normal Lymph Lymphatic: no lymphadenopathy noted Chest inspection of chest normal Resp normal respiratory effort Cardio regular rate GI soft to palpation and non-tender GI Narrative: gravid Inspection: gravid external exam normal Bimanual Exam - Vag & Uterus: uterus non-tender Manual OB Exam: estimated gestational size appropriate, presentation cephalic, dilated, effaced and station Extremity normal to inspection General Extremity: Negative for edema Skin no rashes or lesions noted Neuro deep tendon reflexes 2+ bilaterally Motor Exam: strength 5/5 throughout and clonus absent Psych mental status grossly normal Labs Labs Labs: Blood Type O NEGATIVE Antibody Screen NEGATIVE Hct 38.3 % (37-47) Hgb 13.2 g/dL (12.0-15.0) Obstetrics Ultrasound Syphilis Total Ab Nonreactive (Nonreactive) Rubella IgG Antibody Reactive (Nonreactive) Hep Bs Antigen Non-Reactive (Nonreactive) Hepatitis C Antibody Non-Reactive (Nonreactive) Chlamydia DNA (SHER) Negative (Negative) N.gonorrhoeae DNA (SHER) Negative (Negative) HIV 1&2 Antibody Nonreactive (Nonreactive) Glucose 1 Hr 50 gm 149 mg/dL (70-140) H Gest Glucose Tolerance mg/dL Assessment & Plan (1) MAILE (amniotic fluid index) borderline low: COMMENT: rpt US ordered 9.9 on 12/20 (2) PUPP (pruritic urticarial papules and plaques of ): COMMENT: Resolved on abdomen only, sees only after showers. Benadryl or claritan enc (3) Gestational diabetes mellitus (GDM) affecting , antepartum: COMMENT: MAILE 7 at 36 weeks, repeat weekly US start testing QID and nutrition consult, 36 wk growth US (4) Rh negative status during : QUALIFIERS: Trimester: second trimester Qualified Code(s): O26.892 - Other specified related conditions, second trimester; Z67.91 - Unspecified blood type, Rh negative COMMENT: rhogam 28 wk, pp and prn bleeding, Given 10/16/24 (5) Supervision of normal first : QUALIFIERS: Trimester: third trimester Qualified Code(s): Z34.03 - Encounter for supervision of normal first , third trimester COMMENT: PRR , DIEGO 01/08/25, Tanvir Messina (6) : QUALIFIERS: Weeks of gestation: 39 weeks Qualified Code(s): Z3A.39 - 39 weeks gestation of COMMENT: GBS neg, discussed NIPT & Carrier testing- Undecided, normal anatomy (7) S/P laparoscopy: COMMENT: 2017 pelvic mass excision at [place], transvaginal repair, enterotomy repair (8) Vaginal delivery: COMMENT: SM IAL 39 girl [place] gdma1 PLAN: Plan admit ial
--- NOTE | 2025-01-05 18:20 | HP.PCM.OB_ITS ---
HPI - General General Date of Admission: 01/05/25 HPI Narrative LEONARD MESSINA, is a 34 F who presents ial srom in office 4 cm gdma1 Maternal Data Information DIEGO Calculator Estimated Delivery Date Method Current WG Current Estimate 01/08/25 LMP (Certain) 39w 5d Other Estimates 01/11/25 Ultrasound #1 39w 2d PFSH PFS Medical History (Updated 01/06/25 @ 00:[address] Shameka Egan MD) Gestational diabetes Abnormal glucose affecting Home Medications ?Medication ?Instructions ?Recorded ?Last Taken ?Type magnesium glycinate 100 mg (as 100 mg PO QDAY 05/16/24 Unknown History glycinate) tablet vitamins no.163-iron tab PO 05/16/24 Unknown History bis-gly 20 mg-folate no.10 1 mg tablet (PNV Tabs 20-1) blood sugar diagnostic (Blood #120 ea 10/25/24 Unknown Rx Glucose Test strips) blood-glucose meter #1 ea 10/25/24 Unknown Rx lancets 30 gauge (Droplet Lancets) #200 ea 10/25/24 Un known Rx Allergy/AdvReac Type Severity Reaction Status Date / Time amoxicillin Allergy Mild Other Verified 01/05/25 10:59 Surgical History S/P laparoscopy Social History adopted: No household members: spouse 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 status: employed 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 exposures/hazards: No pets and animals: Yes pets and animals: dog(s) history of recent travel: Yes (- April) out of state: Yes out of country: No sexually active: Yes Smoking Status: Never smoker alcohol intake: current alcohol intake frequency: holidays/special occasions only details: not while substance use type: does not use diet: other well-balanced diet: daily or most days caffeine: Yes Type: coffee Number of servings: 1 eating out: rarely or never during the past year weight has: remained stable what type of physical activity do you participate in: none sim/episcopalian: Muslim seatbelt use: always do you feel safe at home: Yes additional social history: Tanvir Messina 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 History 1 Elective abortions Hx Para 0 Spontaneous abortions Hx # Term Pregnancies Ectopic pregnancies Hx # Pregnancies Multiple births # of living children Visit Details Expected Delivery Route/Plan Labor Preferences- CB/BF classes: encouraged labor support person: Tanvir labor intervention preferences: [] pain management options preferred: limited but would do epidural cut cord/dad catch: maybe : yes PP control planned: discussed discussed possible routes of delivery and associated risks: [] special requests: [] Plans Covid status: [] Flu vaccine: [] Tdap vaccine: declined Rhogam: given 10/16/24 LARC form signed: yes Problem list reviewed and updated with the most current plan of care details and appropriate orders placed. Relevant counseling for the gestational age provided. Continue routine care and follow up unless otherwise noted in visit notes/problem list details OB Flowsheet Initial Weight: Not Recorded Date -?-?-?-?-?-?-?-?-?-?-?-?- EGA Weight BP Urine Prot -?-?-?-?-?-?-?-?-?-?-?-?- Glucose FHR FuHt Pres Dilation -?-?-?-?-?-?-?-?-?-?-?-?- Effaced St Visit Note 06/09/24 -?-?-?-?-?-?-?-?-?-?-?-?- 9w 4d 152 lb 8 oz 118/79 -?-?-?-?-?-?-?-?-?-?-?-?- 180 -?-?-?-?--?-?-?-?-?-?-?-?- JV- CRL is consi stent with LMP. declines NIPT. first baby, has h/o rectovaginal surgery for a large cyst. see attached op note. 07/07/24 -?-?-?-?-?-?-?-?-?-?-?-?- 13w 4d 154 lb 8 oz 133/81 Nega tive -?-?-?-?-?-?-?-?-?-?-?-?- Negative 150 -?-?-?-?-?-?-?-?-?-?-?-?- SM- no vb crampi ng 08/03/24 -?-?-?-?-?-?-?-?-?-?-?-?- 17w 3d 160 lb 8 oz 121/77 Nega tive -?-?-?-?-?-?-?-?-?-?-?-?- Negative 150 -?-?-?-?-?-?-?-?-?-?-?-?- KW- no vb/crampi ng. possible flutters. US scheduled. AFP discussed and declined 08/28/24 -?-?-?-?-?-?-?-?-?-?-?-?- 21w 0d 165 lb 2 oz 106/70 Trac e -?-?-?-?-?-?-?-?-?-?-?-?- Negative 160 -?-?-?-?-?-?-?-?-?-?-?-?- MH-No VB. Jevonin g movement. Denies concerns 09/25/24 -?-?-?-?-?-?-?-?-?-?-?-?- 25w 0d 168 lb 121/84 Negative -?-?-?-?-?-?-?-?-?-?-?-?- Negative 150 26 -?-?-?-?-?-?-?-?-?-?-?-?- KW- no vb/lof/ct x. good fm. glucose next visit. CBE classes discussed. 10/16/24 -?-?-?-?-?-?-?-?-?-?-?-?- 28w 0d 173 lb 118/72 Negative -?-?-?-?-?-?-?-?-?-?-?-?- Negative 152 28 -?-?-?-?-?-?-?-?-?-?-?-?- MH-NO VB, LOF. G ood Fm. 28 wk labs pending. Rhogam given. Larc. Declines tdap 10/30/24 -?-?-?-?-?-?-?-?-?-?-?-?- 30w 0d 170 lb 6 oz 118/75 Nega tive -?-?-?-?-?-?-?-?-?-?-?-?- Negative 150 30 -?-?-?-?-?-?-?-?-?-?-?-?- KW- no vb/lof/ct x. good fm Blood sugars reviewed and WNL. discussed high protein snack at night. 11/16/24 -?-?-?-?-?-?-?-?-?-?-?-?- 32w 3d 172 lb 2 oz 109/75 Nega tive -?-?-?-?-?-?-?-?-?-?-?-?- Negative 140 32 -?-?-?-?-?-?-?-?-?-?-?-?- Sm- no vb lof go od fm no reuglar ctx BS controlled 11/27/24 -?-?-?-?-?-?-?-?-?-?-?-?- 34w 0d 172 lb 112/72 Negative -?-?-?-?-?-?-?-?-?-?-?-?- Negative 160 34 -?-?-?-?-?-?-?-?-?-?-?-?- MH-No vB, LOF. G ood FM. Glucose reading WNL except one and she knows what caused it. Notes fine red rash that itches on abdomen just after showers. No other symptoms. PUPPS? can try benadryl or claritan 12/11/24 -?-?-?-?-?-?-?-?-?-?-?-?- 36w 0d 172 lb 2 oz 120/79 Nega tive -?-?-?-?-?--?-?-?-?-?-?-?- Negative 150 35 0 -?-?-?-?-?-?-?-?-?-?-?-?- KW- no vb/lof/ct x. good fm GBS today. growth US today. 12/20/24 -?-?-?-?-?-?-?-?-?-?-?-?- 37w 2d 169 lb 4 oz 120/84 Nega tive -?-?-?-?-?-?-?-?-?-?-?-?- Negative 148 38 0 -?-?-?-?-?-?-?-?-?-?-?-?- MH-No VB, LOF or reg CTX. US to check MAILE today/pending. 12/27/24 -?-?-?-?-?-?-?-?-?-?-?-?- 38w 2d 171 lb 1 oz 112/77 Nega tive -?-?-?-?-?-?-?-?-?-?-?-?- Negative 140 37 3 -?-?-?-?-?-?-?-?-?-?-?-?- 70 -1 JV- glucos e levels are normal. maile 11 today. labor precautions discussed. plan 40 week IOL if still . 01/05/25 -?-?-?-?-?-?-?-?-?-?-?-?- 39w 4d 170 lb 4 oz 126/84 Nega tive -?-?-?-?-?-?-?-?-?-?-?-?- Negative 140 38 -?-?-?-?-?-?-?-?-?-?-?-?- NST FHR Rate Baby A Baseline: 140 Variability:: Moderate Accelerations:: 15 x 15 Decelerations:: None NST Reactive:: Yes FHR Category:: Category I Uterine Activity:: q3-5 ROS Constitutional Constitutional: Reports systems reviewed and no addt'l complaints, except as documented Eyes Eyes: Denies change in vision ENT HEENT: Reports systems reviewed and no addt'l complaints, except as documented Cardiovascular Cardiovascular: Reports systems reviewed and no addt'l complaints, except as documented Respiratory/Chest Respiratory/Chest: Reports systems reviewed and no addt'l complaints, except as documented Gastrointestinal Gastrointestinal: Reports systems reviewed and no addt'l complaints, except as documented and nausea; Denies abdominal pain Genitourinary Genitourinary: Reports systems reviewed and no addt'l complaints, except as documented, contractions Details: present and frequency (regular ) and movement Details: present Musculoskeletal Musculoskeletal: Reports systems reviewed and no addt'l complaints, except as documented Integumentary Integumentary: Reports as per HPI Neurologic Neurologic: Reports systems reviewed and no addt'l complaints, except as documented Endocrine Endocrinology: Reports systems reviewed and no addt'l complaints, except as documented Vital Signs Vital Signs Vital Signs: 01/05/25 15:18 01/05/25 15:18 01/05/25 15:18 Temperature 97.6 F L Temperature Source Temporal Pulse Rate Respiratory Rate 16 Blood Pressure BP Systolic BP Diastolic Pulse Ox 01/05/25 15:20 01/05/25 15:20 01/05/25 15:20 Temperature Temperature Source Pulse Rate 138 H Respiratory Rate Blood Pressure 132/84 H BP Systolic 132 BP Diastolic 84 Pulse Ox 96 01/05/25 17:29 01/05/25 17:29 01/05/25 17:30 Temperature Temperature Source Temporal Pulse Rate 110 H Respiratory Rate Blood Pressure 123/83 H BP Systolic 123 BP Diastolic 83 Pulse Ox 01/05/25 17:30 01/05/25 17:30 01/05/25 17:30 Temperature 98.7 F Temperature Source Temporal Pulse Rate Respiratory Rate 16 Blood Pressure BP Systolic BP Diastolic Pulse Ox 01/05/25 17:30 01/05/25 17:30 Temperature 98.7 F Temperature Source Pulse Rate Respiratory Rate 16 Blood Pressure BP Systolic BP Diastolic Pulse Ox Weight Weight: 169 lb 9.6 oz Body Mass Index (BMI) 29.1 Physical Exam Const alert, oriented x3 and healthy appearing Constitutional Narrative: uncomfortable with contractions HEENT normocephalic and moist oral mucous membranes Head and Scalp: atraumatic Neck full ROM, no lymphadenopathy, supple and thyroid normal General: trachea midline Thyroid: thyroid normal Lymph Lymphatic: no lymphadenopathy noted Chest inspection of chest normal Resp normal respiratory effort Cardio regular rate GI soft to palpation and non-tender GI Narrative:
[2025-01-05 19:24] VITALS: BP 122/76; PULSE 106; RESP 16; TEMP 37
[2025-01-05] MEDS: Oxytocin 15 Units/NS 250ml 15 UNITS/250 ML IV.SOLN 334 UNITS IV (23:41)
[2025-01-05] MEDS: Lidocaine 1% (20 ml mdv) 20 ML Vial INFILT (23:43)
[2025-01-06] VITALS (35 sets, daily range): BP systolic 102–131; BP diastolic 55–82; PULSE 86–115; RESP 16; TEMP 36.1–36.7; O2SAT 93–100
--- NOTE | 2025-01-06 00:19 | EX.PCM.OBVAG ---
Assessment & Plan (1) Vaginal delivery: COMMENT: SM IAL 39 girl [place] gdma1 (2) MAILE (amniotic fluid index) borderline low: COMMENT: rpt US ordered 9.9 on 12/20 (3) PUPP (pruritic urticarial papules and plaques of ): COMMENT: Resolved on abdomen only, sees only after showers. Benadryl or claritan enc (4) Gestational diabetes mellitus (GDM) affecting , antepartum: COMMENT: MAILE 7 at 36 weeks, repeat weekly US start testing QID and nutrition consult, 36 wk growth US (5) Rh negative status during : QUALIFIERS: Trimester: second trimester Qualified Code(s): O26.892 - Other specified related conditions, second trimester; Z67.91 - Unspecified blood type, Rh negative COMMENT: rhogam 28 wk, pp and prn bleeding, Given 10/16/24 (6) Supervision of normal first : QUALIFIERS: Trimester: third trimester Qualified Code(s): Z34.03 - Encounter for supervision of normal first , third trimester COMMENT: PRR , DIEGO 01/08/25, Tanvir Pool (7) : QUALIFIERS: Weeks of gestation: 39 weeks Qualified Code(s): Z3A.39 - 39 weeks gestation of COMMENT: GBS neg, discussed NIPT & Carrier testing- Undecided, normal anatomy (8) S/P laparoscopy: COMMENT: 2017 pelvic mass excision at [place], transvaginal repair, enterotomy repair Maternal Data Information DIEGO Calculator Estimated Delivery Date Method Current WG Current Estimate 01/08/25 LMP (Certain) 39w 5d Other Estimates 01/11/25 Ultrasound #1 39w 2d Vaginal Delivery Maternal Presentation Maternal Presentation: see assessment and plan Vaginal Delivery Information Procedure Performed: Spontaneous Vaginal Delivery Surgeon/Practitioner: Shameka Egan Date of Procedure: 01/06/25 Pre-Procedure Diagnosis: see assessment and plan Post-Procedure Diagnosis: same Type of anesthesia: Local with 1% Lidocaine Findings Description of procedure: Patient began pushing and delivered the head in the WALT presentation. The head was delivered atraumatically and a loose nuchal cord ?1 was identified and easily reduced over the infant's head. The anterior and posterior shoulders delivered without complication followed by the rest of the infant and the infant was placed on the maternal abdomen. Delayed cord clamping was employed for approximately 60 seconds. Cord was clamped and cut and gentle traction was applied to the cord and the placenta delivered spontaneously immediately following it was noted to be intact with three-vessel cord. The perineum and vagina were inspected and was noted to have a first -degree laceration that was repaired in the usual fashion with 3-0 vicryl rapide . EBL was 200. Patient and tolerated delivery well. 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
--- NOTE | 2025-01-06 00:20 | DCINST_ITS ---
Discharge Instructions DC O2, CPAP, BIPAP needs Home O2 Discharge instructions: No Dressing / Incision Discharge Activity: Return to Normal Activity, May Not Drive (while taking narcotic pain medications.) and May Shower May resume sexual activity in: 4-6 weeks Dressing / Incision Call your doctor if your incision/area has: Continuous Slow Oozing, Sudden Increased Bleeding, Increased Pain/ Swelling, Increased Redness and Foul Smelling Discharge Follow Up Care Please Follow Up With: Shameka Egan MD When: Call [phone] to make an appointment with your doctor in 6 weeks. If you had elevated blood pressure or 4th degree laceration, you will need to be seen in 2 weeks. Test Results: Test results from this visit will be discussed in further detail at your follow- up appointment, if applicable. Discharge Plan Admission Admit Date/Time: 01/05/25 12:00 Attending Provider: Shameka Egan Primary Care Provider: Luli Birch Discharge Orders/Prescriptions Prescriptions: No Action PNV Tabs 20-1 20 mg iron- 1 mg tablet PO magnesium glycinate 100 mg tablet 100 mg PO QDAY (DME) Blood Glucose Test Strip See Rx Instructions .ROUTE .MEDSUPPLY Qty: 120 6RF Rx Instructions: Check blood sugars Fasting and 2 hours after breakfast, lunch, and dinner. (DME) blood-glucose meter Misc See Rx Instructions .ROUTE .MEDSUPPLY Qty: 1 0RF Rx Instructions: As directed (DME) lancets [Droplet Lancets] 30 gauge misc See Rx Instructions .ROUTE .MEDSUPPLY Qty: 200 6RF Rx Instructions: Check blood sugars fasting and 2 hours after breakfast, lunch, and supper. Referrals / Follow Up: Luli Birch PA [Primary Care Provider] -
[2025-01-06] MEDS: Oxytocin 15 Units/NS 250ml 15 UNITS/250 ML IV.SOLN 83 UNITS IV (00:26)
--- NOTE | 2025-01-06 08:27 | PCM.PN.OB ---
Subjective Subjective Patient doing well without complaints. Tolerating PO. Ambulating and voiding without difficulty. feeding well. Denies chest pain, shortness of breath, calf pain/swelling, fevers, chills, lightheadedness. Objective Data Objective Data Vital Signs: Vital Signs Temp Pulse Resp BP Pulse Ox O2 Del Method 97.5 F L 99 16 102/77 100 Room Air 01/06/25 08:15 01/06/25 08:15 01/06/25 08:15 01/06/25 08:15 01/06/25 04:50 01/06/25 08:15 Oxygen Delivery Method Room Air Weight: 169 lb 9.6 oz Body Mass Index (BMI) 29.1 Intake & Output: Intake and Output for Last 24 Hours 01/04/25 01/05/25 01/06/25 23:59 23:59 23:59 Intake Total 300 / 300 499 / 499 Output Total 1000 / 1000 Balance 300 / 300 -501 / -501 Lab / Micro Data 01/05/25 16:13 Labs: Laboratory Results - last 24 hr 01/05/25 12:40: POC Glucose 97 01/05/25 12:50: WBC 10.9, RBC 4.32, Hgb 13.2, Hct 38.3, MCV 88.7, MCH 30.6, MCHC 34.5, RDW Std Deviation 44.4 H, RDW Coeff of Lianne 13.6, Plt Count TNP, MPV 12.4 H, Immature Gran % (Auto) 0.500, Neut % (Auto) 82.3 H, Lymph % (Auto) 9.7 L, [place] % (Auto) 6.7, Eos % (Auto) 0.5, Baso % (Auto) 0.3, Absolute Neuts (auto) 9.0 H, Absolute Lymphs (auto) 1.06, Nucleated RBC % 0, Platelet Estimate ADEQUATE, Syphilis Total Ab Nonreactive, Blood Type O NEGATIVE, Antibody Screen NEGATIVE 01/05/25 15:59: POC Glucose 72 L 01/05/25 16:13: Plt Count 150 01/05/25 21:05: POC Glucose 67 L 01/05/25 21:27: POC Glucose 87 01/05/25 22:22: POC Glucose 113 H 01/06/25 00:17: POC Glucose 167 H 09/13/25 05:06: Screen NEGATIVE, Baby's Blood Type O POSITIVE, Baby's JERROD NEGATIVE ROS Constitutional Constitutional: Reports systems reviewed and no addt'l complaints, except as documented Cardiovascular Cardiovascular: Reports systems reviewed and no addt'l complaints, except as documented Respiratory/Chest Respiratory/Chest: Reports systems reviewed and no addt'l complaints, except as documented Gastrointestinal Gastrointestinal: Reports systems reviewed and no addt'l complaints, except as documented Physical Exam Const alert, oriented x3 and no apparent distress HEENT Head and Scalp: atraumatic Resp normal respiratory effort GI soft to palpation and non-tender Bimanual Exam - Vag & Uterus: uterus non-tender Uterus Palpation: uterus fundus firm (below Umbilicus) Assessment & Plan (1) Vaginal delivery: COMMENT: IAL 39 girl [place] [id number] PLAN: Plan s/p PPD # 1 1. routine post delivery care 2. breast feeding- support given 3. rh positive 4. rubella immune diabetes
[2025-01-06] MEDS: Rho(D) Immune Globulin 300 MCG (1500 Unit) Syringe IV (08:44)
[2025-01-06] MEDS: 0.9% Saline Lock 10 ML Syringe IV (08:44)
[2025-01-07 00:10] VITALS: BP 102/75; PULSE 89; RESP 16; TEMP 36.3; O2SAT 98
[2025-01-07 06:30] VITALS: BP 102/79; PULSE 88; RESP 16; TEMP 36.1; O2SAT 98
[2025-01-07 09:15] VITALS: BP 108/74; PULSE 101; RESP 16; TEMP 36.3; O2SAT 97
[2025-01-07] MEDS: Senna/Docusate Sodium 1 Tablet PO (09:26)
--- NOTE | 2025-01-07 11:31 | PN.OBGYN_ITS ---
Subjective Subjective Patient doing well without complaints. Tolerating PO. Ambulating and voiding without difficulty. feeding well. Denies chest pain, shortness of breath, calf pain/swelling, fevers, chills, lightheadedness. Objective Data Objective Data Vital Signs: Vital Signs Temp Pulse Resp BP Pulse Ox O2 Del Method 97.4 F L 101 H 16 108/74 97 Room Air 01/07/25 09:15 01/07/25 09:15 01/07/25 09:15 01/07/25 09:15 01/07/25 09:15 01/07/25 09:15 Oxygen Delivery Method Room Air Weight: 169 lb 9.6 oz Body Mass Index (BMI) 29.1 Intake & Output: Intake and Output for Last 24 Hours 01/05/25 01/06/25 01/07/25 23:59 23:59 23:59 Intake Total 300 / 300 499 / 499 Output Total 1700 / 1700 Balance 300 / 300 -1201 / -1201 Lab / Micro Data 01/05/25 16:13 ROS Constitutional Constitutional: Reports systems reviewed and no addt'l complaints, except as documented Cardiovascular Cardiovascular: Reports systems reviewed and no addt'l complaints, except as documented Respiratory/Chest Respiratory/Chest: Reports systems reviewed and no addt'l complaints, except as documented Gastrointestinal Gastrointestinal: Reports systems reviewed and no addt'l complaints, except as documented Physical Exam Const alert, oriented x3 and no apparent distress HEENT Head and Scalp: atraumatic Resp normal respiratory effort GI soft to palpation and non-tender Bimanual Exam - Vag & Uterus: uterus non-tender Uterus Palpation: uterus fundus firm (below Umbilicus) Assessment & Plan (1) Vaginal delivery: COMMENT: SM IAL 39 girl [place] [id number] (2) MAILE (amniotic fluid index) borderline low: COMMENT: rpt US ordered 9.9 on 12/20 (3) PUPP (pruritic urticarial papules and plaques of ): COMMENT: Resolved on abdomen only, sees only after showers. Benadryl or claritan enc (4) Gestational diabetes mellitus (GDM) affecting , antepartum: COMMENT: MAILE 7 at 36 weeks, repeat weekly US start testing QID and nutrition consult, 36 wk growth US (5) Rh negative status during : QUALIFIERS: Trimester: second trimester Qualified Code(s): O 26.892 - Other specified related conditions, second trimester; Z67.91 - Unspecified blood type, Rh negative COMMENT: rhogam 28 wk, pp and prn bleeding, Given 10/16/24 (6) Supervision of normal first : QUALIFIERS: Trimester: third trimester Qualified Code(s): Z34.03 - Encounter for supervision of normal first , third trimester COMMENT: PRR , DIEGO 01/08/25, Tanvir Pool (7) : QUALIFIERS: Weeks of gestation: 39 weeks Qualified Code(s): Z 3A.39 - 39 weeks gestation of COMMENT: GBS neg, discussed NIPT & Carrier testing- Undecided, normal anatomy (8) S/P laparoscopy: COMMENT: 2017 pelvic mass excision at cave junction, transvaginal repair, enterotomy repair PLAN: Plan s/p PPD # 2 1. routine post delivery care 2. breast feeding- support given 3. rh positive 4. rubella immune
== END 2025-01-07 12:10 | disposition home or self-care (01) | DRG 807 ==
PROVIDERS: Admitting Provider Obstetrics & Gynecology; PCP Physician Assistant; Referring Provider Obstetrics & Gynecology; Visit Provider Obstetrics & Gynecology
DX: O24.429 Gestational diabetes mellitus in childbirth, unspecified control (principal); Z37.0 Single live birth; O26.86 Pruritic urticarial papules and plaques of pregnancy (PUPPP); Z3A.39 39 weeks gestation of pregnancy; Z67.91 Unspecified blood type, Rh negative; O70.0 First degree perineal laceration during delivery; O69.81X0 Labor and delivery complicated by cord around neck, without compression, not applicable or unspecified
CPT/HCPCS: 59025; 59050; 82962; 85025; 85049; 85461; 86780; 86850; 86900; 86901; 90384; 99221; A4216; G0378; J2790; J2791

== ENCOUNTER → 2025-04-09 | Outpatient (CLI) | payer OTHER, SELFPAY | END | disposition home or self-care (01) | LOC: LABSPEC 12:10 | PROVIDERS: PCP Physician Assistant; Visit Provider Obstetrics & Gynecology | DX: N89.8 Other specified noninflammatory disorders of vagina (principal); N39.46 Mixed incontinence | CPT/HCPCS: 87070; 87086; 87088; 87205 ==